=== PATIENT | male | born 1965 | race African-American/Black ===

== ENCOUNTER 2016-10-20 05:28 | Inpatient (IN) | payer MEDICARE, MEDICAID, OTHER ==
[~2016-10-20] VITALS: Ht 172.7 cm; Wt 91.8 kg
[2016-10-20] VITALS (10 sets, daily range): BP systolic 136–200; BP diastolic 65–95; PULSE 75–90; RESP 17–20; TEMP 97.6–101.3; O2SAT 95–100
[~2016-10-20 05:28] MED LIST: BACL20TA PO; FENT100D T-DERMAL; GABA600T PO; LYRI200C PO
[2016-10-20] MEDS ORDERED: SODIUM CHLOR 0.9% 1000 ML INJ 1,000 ML IV ONE (05:31)
[2016-10-20] MEDS ORDERED: ACETAMINOPHEN 650 MG SUPP RECTAL ONE (05:45)
[2016-10-20 06:00] LABS: AUTOMATED NEUTROPHIL # 17.5 TH/MM3 (1.8-7.7); BASOPHIL # 0.1 TH/MM3 (0-0.2); BASOPHIL % 0.4 % (0.0-2.0); HEMATOCRIT 43.6 % (39.0-51.0); LYMPH % 5.2 % (9.0-44.0); MEAN CELL VOLUME 86.5 FL (80.0-100.0); MEAN CORPUSCULAR HEMOGLOBIN 28.7 PG (27.0-34.0); MEAN CORPUSCULAR HGB CONC 33.2 % (32.0-36.0); MONO % 0.3 % (0.0-8.0); NEUT % 94.1 % (16.0-70.0); PLATELET COUNT 146 TH/MM3 (150-450); RED BLOOD COUNT 5.04 MIL/MM3 (4.50-5.90); WHITE BLOOD COUNT 18.7 TH/MM3 (4.0-11.0)
[2016-10-20] MEDS ORDERED: HYDROmorphone HCL PF 1 MG/ML VIAL IV PUSH ONE ×2 (06:00→09:00)
[2016-10-20 06:04] LABS: HEMO FLAGS DIFF FINAL
[2016-10-20 06:08] LABS: CHLORIDE 111 MEQ/L (98-107); POTASSIUM 4.2 MEQ/L (3.5-5.1); SODIUM (NA) 143 MEQ/L (136-145)
--- NOTE | 2016-10-20 06:11 | PD ---
HPI Chief Complaint: Altered Mental Status Time Seen by Provider: 05:31 Travel History International Travel<30 days: No Contact w/Intl Traveler<30days: No Traveled to known affect area: No History of Present Illness HPI Patient is a 50-year-old male who comes in by EMS due to altered mental status. 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 His mother says that since around midnight he has been yelling and not talking to her. She thought he was having night terrors. He is unable to provide any history. He is simply yelling out and occasionally saying okay. At one point he did say that his heart and his kidneys hurt him. He does not provide any other information. Mom states he was in his normal state of health earlier. She says he does not eat or drink very much normally. PFSH Past Medical History Anxiety: No Depression: No Cancer: No Cardiovascular Problems: No Endocrine: No Genitourinary: No Immune Disorder: No Musculoskeletal: No Neurologic: Yes (c4 c5 fracture, incomplete quad) Psychiatric: No Reproductive: No Respiratory: No Immunizations Current: No Past Surgical History Abdominal Surgery: Yes (COLOSTOMY TO LLQ ) AICD: No Pacemaker: No Other Surgery: Yes Social History Alcohol Use: No Tobacco Use: Yes Substance Use: No Allergies-Medications (Allergen,Severity, Reaction): Coded Allergies: Morphine (Verified Allergy, Unknown, Confusion, 10/20/16) PT DENIES ALLERGY TO THIS MEDICATION 02-04-16 Uncoded Allergies: morphi (Adverse Reaction, Unknown, Confusion, 06/21/14) Reported Meds & Prescriptions Reported Meds & Active Scripts Active Lyrica (Pregabalin) 200 Mg Cap 200 Mg PO TID Reported Baclofen 20 Mg Tab 20 Mg PO QID Fentanyl Patch 72 HR (Fentanyl) 100 Mcg/Hr Patch 100 Mcg T-DERMAL Q72H Remove old patch when new one placed. Gabapentin 600 Mg Tab 1,200 Mg PO TID Review of Systems ROS Limitations: Clinical Condition, Altered Mental Status Physical Exam Exam Limitations: Altered Mental Status Narrative GENERAL: Awake, confused. SKIN: Warm and dry. HEAD: Atraumatic. Normocephalic. EYES: Pupils equal and round. No scleral icterus. Extraocular movements intact. ENT: Mucous membranes are dry. NECK: Trachea midline. No JVD. CARDIOVASCULAR: Regular rate and rhythm. No murmur appreciated. RESPIRATORY: No accessory muscle use. Clear to auscultation. Breath sounds equal bilaterally. GASTROINTESTINAL: Abdomen soft, non-tender, nondistended. MUSCULOSKELETAL: No obvious deformities. No clubbing. No cyanosis. Large bilateral pitting edema of the lower extremities. NEUROLOGICAL: Patient is awake, but does not answer questions. He is moving both arms, he has paralysis of both legs. The rest of his neurologic exam cannot be assessed due to his altered mental status. Data Data Last Documented VS Vital Signs Date Time Temp Pulse Resp B/P Pulse Ox O2 Delivery O2 Flow Rate FiO2 10/20/16 07:09 84 20 169/78 100 Room Air 10/20/16 05:50 101.3 Orders Electrocardiogram (10/20/16 05:31) Complete Blood Count With Diff (10/20/16 05:31) Comprehensive Metabolic Panel (10/20/16 05:31) Prothrombin Time / Inr (Pt) (10/20/16 05:31) Act Partial Throm Time (Ptt) (10/20/16 05:31) Lactic Acid Sepsis Protocol (10/20/16 05:31) Magnesium (Mg) (10/20/16 05:31) Phosphorus (Po4) (10/20/16 05:31) Lipase (10/20/16 05:31) Ckmb (Isoenzyme) Profile (10/20/16 05:31) Troponin I (10/20/16 05:31) Urinalysis - C+S If Indicated (10/20/16 05:31) Ua Includes Microscopic (10/20/16 05:31) Blood Culture (10/20/16 05:31) Chest, Single Ap (10/20/16 05:31) Blood Glucose (10/20/16 05:31) Ecg Monitoring (10/20/16 05:31) Iv Access Insert/Monitor (10/20/16 05:31) Oximetry (10/20/16 05:31) Oxygen Administration (10/20/16 05:31) Urinary Catheter Insert/Apply (10/20/16 05:31) Acetaminophen Supp (Tylenol Supp) (10/20/16 05:45) Ct Brain W/O Iv Contrast(Rout) (10/20/16 05:31) Sodium Chlor 0.9% 1000 Ml Inj (Ns 1000 M (10/20/16 05:31) Ammonia (10/20/16 05:36) Drug Screen,Ur W/Confirmation (10/20/16 05:36) Hydromorphone Pf Inj (Dilaudid Pf Inj) (10/20/16 06:00) Lorazepam Inj (Ativan Inj) (10/20/16 06:15) Piperacil-Tazo 3.375 Gm Premix (Zosyn 3. (10/20/16 06:15) Vancomycin Inj (Vancomycin Inj) (10/20/16 06:15) CKMB (10/20/16 05:47) CKMB% (10/20/16 05:47) Electrocardiogram (10/20/16 ) Urine Culture (10/20/16 05:50) Admit Order (Ed Use Only) (10/20/16 07:28) Labs Laboratory Tests Test 10/20/16 10/20/16 05:47 05:50 White Blood Count 18.7 TH/MM3 Red Blood Count 5.04 MIL/MM3 Hemoglobin 14.5 GM/DL Hematocrit 43.6 % Mean Corpuscular Volume 86.5 FL Mean Corpuscular Hemoglobin 28.7 PG Mean Corpuscular Hemoglobin 33.2 % Concent Red Cell Distribution Width 14.0 % Platelet Count 146 TH/MM3 Mean Platelet Volume 9.9 FL Neutrophils (%) (Auto) 94.1 % Lymphocytes (%) (Auto) 5.2 % Monocytes (%) (Auto) 0.3 % Eosinophils (%) (Auto) 0.0 % Basophils (%) (Auto) 0.4 % Neutrophils # (Auto) 17.5 TH/MM3 Lymphocytes # (Auto) 1.0 TH/MM3 Monocytes # (Auto) 0.1 TH/MM3 Eosinophils # (Auto) 0.0 TH/MM3 Basophils # (Auto) 0.1 TH/MM3 CBC Comment DIFF FINAL Differential Comment Prothrombin Time 12.3 SEC Prothromb Time International 1.1 RATIO Ratio Activated Partial 29.9 SEC Thromboplast Time Sodium Level 143 MEQ/L Potassium Level 4.2 MEQ/L Chloride Level 111 MEQ/L Carbon Dioxide Level 20.4 MEQ/L Anion Gap 12 MEQ/L Blood Urea Nitrogen 18 MG/DL Creatinine 1.50 MG/DL Estimat Glomerular Filtration 61 ML/MIN Rate Random Glucose 126 MG/DL Lactic Acid Level 2.0 mmol/L Calcium Level 8.5 MG/DL Phosphorus Level 2.3 MG/DL Magnesium Level 2.3 MG/DL Total Bilirubin 0.7 MG/DL Aspartate Amino Transf 20 U/L (AST/SGOT) Alanine Aminotransferase 13 U/L (ALT/SGPT) Alkaline Phosphatase 78 U/L Ammonia LESS THAN 10 MCMOL/L Total Creatine Kinase 310 U/L Creatine Kinase MB 4.7 NG/ML Creatine Kinase MB % 1.5 % Troponin I 0.02 NG/ML Total Protein 7.9 GM/DL Albumin 3.4 GM/DL Lipase 40 U/L Urine Collection Type CATH Urine Color YELLOW Urine Turbidity MOD Urine pH 6.0 Urine Specific [place] 1.020 Urine Protein 100 mg/dL Urine Glucose (UA) NEG mg/dL Urine Ketones NEG mg/dL Urine Occult Blood MOD Urine Nitrite POS Urine Bilirubin NEG Urine Leukocyte Esterase MOD Urine RBC 4-9 /hpf Urine WBC 25-49 /hpf Urine Squamous Epithelial 0-5 /hpf Cells Urine Bacteria MANY /hpf Microscopic Urinalysis Comment CATH-CULTURE IND Urine Opiates Screen NEG Urine Barbiturates Screen NEG Urine Amphetamines Screen NEG Urine Benzodiazepines Screen NEG Urine Cocaine Screen NEG Urine Cannabinoids Screen NEG MDM Medical Decision Making Medical Screen Exam Complete: Yes Emergency Medical Condition: Yes Medical Record Reviewed: Yes Interpretation(s) ECG shows sinus rhythm at 71, no ST elevation or depression, normal intervals. T-wave inversions present in lead 3 and aVF. Differential Diagnosis Sepsis versus drug reaction versus ICH versus electrolyte abnormality versus encephalopathy Narrative Course Patient is a 50-year-old male comes in altered. Patient is unable to provide history and is just yelling. Patient is warm to the touch. IV established, patient connected to registered nurse cardiac. Labs sent show a white count of 18.7. Urinalysis positive for UTI. Chest x-ray shows possible pneumonia. Lactic acid is 2. Patient covered with vancomycin and Zosyn. Given IV fluids. Patient given small dose of Dilaudid as well as Ativan. CT of the head ordered. Patient signed out to Dr. Paige to follow up CT and admit the patient. Critical Care Narrative Aggregate critical care time was 35 minutes. Time to perform other separately billable procedures was not included in the critical care time. My time did not include minutes spent treating any other patients simultaneously or on activities that did not directly contribute to the patient's treatment. The services I provided to this patient were to treat and/or prevent clinically significant deterioration that could result in: Serious morbidity, worsening illness or . I provided critical care services requiring my management, as noted below: Chart data review, documentation time, medication orders and management, vital sign assessments/reviewing monitor data, ordering and reviewing lab tests, ordering and interpreting/reviewing x-rays and diagnostic studies, care of the patient and discussion of the patient with the admitting physicians. Anna Pollard MD Oct 20, 2016 06:11
[2016-10-20 06:12] LABS: ANION GAP 12 MEQ/L (5-15); BICARBONATE 20.4 MEQ/L (21.0-32.0); BLOOD UREA NITROGEN 18 MG/DL (7-18); MAGNESIUM 2.3 MG/DL (1.5-2.5)
[2016-10-20 06:15] LABS: ALT (GPT) 13 U/L (12-78); AST (GOT) 20 U/L (15-37); GLOMERULAR FILTRATION RATE 61 ML/MIN (>89)
[2016-10-20] MEDS ORDERED: LORazepam 2 MG/ML VIAL IV PUSH ONE (06:15)
[2016-10-20] MEDS ORDERED: PIPERACIL-TAZO 3.375 GM PREMIX 50 ML IV ONE (06:15)
[2016-10-20] MEDS ORDERED: VANCOMYCIN INJ 1,000 MG in SODIUM CHLOR 0.9% 250 ML INJ 250 ML IV ONE (06:15)
[2016-10-20 06:16] LABS: TOTAL BILIRUBIN ADULT 0.7 MG/DL (0.2-1.0)
--- NOTE | 2016-10-20 06:17 | RADHPO ---
EXAM DATE/TIME: 10/20/2016 06:01 [facility] COMPARISON: CHEST SINGLE AP, February 04, 2016, 23:59. INDICATIONS : Chest pain. MEDICAL HISTORY : None. SURGICAL HISTORY : None. ENCOUNTER: Initial ACUITY: 1 day PAIN SCORE: 8/10 LOCATION: Bilateral chest FINDINGS: A single AP semierect view of the chest was obtained and demonstrates mild streaky opacity is now not ed in the perihilar regions in both lung bases. There is no focal consolidation or effusion. The hear t size is at the upper limits of normal. Overlying electrocardiogram leads are present. The bony thor ax is intact. The patient is status post lower cervical fusion. CONCLUSION: Mild streaky opacity is now noted in both perihilar regions with no focal consolidati on. The findings could indicate viral pneumonitis or early pneumonia. Reggie Alexandra MD on October 20, 2016 at 6:14 Board Certified Radiologist. This report was verified electronically.
[2016-10-20 06:18] LABS: GLUCOSE,URINE NEG (NEG); KETONE, URINE NEG (NEG)
[2016-10-20 06:18] LABS: ALKALINE PHOSPHATASE 78 U/L (45-117); CREATINE KINASE 310 U/L (39-308)
[2016-10-20 06:22] LABS: APTT (PATIENT) 29.9 SEC (24.3-30.1); INTERNATIONAL NORMALIZED RATIO 1.1 RATIO; PROTHROMBIN TIME - PATIENT 12.3 SEC (9.8-11.6)
[2016-10-20 06:26] LABS: BLOOD, URINE MOD (NEG); NITRITE,URINE POS (NEG)
[2016-10-20 06:27] LABS: BACTERIA, URINE MANY /hpf; METHOD OF COLLECTION CATH; URINE COLOR YELLOW (YELLW/STRAW)
[2016-10-20 06:28] LABS: COMMENT (UR) CATH-CULTURE IND; CULTURE IF INDICATED CATH CULTURE IND; SQUAMOUS EPITHELIAL CELL URINE 0-5 /hpf (0-5)
[2016-10-20 06:30] LABS: CKMB 4.7 NG/ML (0.5-3.6)
[2016-10-20 06:40] LABS: AMPHETAMINE, URINE NEG (NEG)
[2016-10-20 06:41] LABS: COCAINE, URINE NEG (NEG)
--- NOTE | 2016-10-20 07:12 | PD ---
Physical Exam Date Seen by Provider: Oct 20, 2016 Data Data Last Documented VS Vital Signs Date Time Temp Pulse Resp B/P Pulse Ox O2 Delivery O2 Flow Rate FiO2 10/20/16 07:09 84 20 169/78 100 Room Air 10/20/16 05:50 101.3 Orders Electrocardiogram (10/20/16 05:31) Complete Blood Count With Diff (10/20/16 05:31) Comprehensive Metabolic Panel (10/20/16 05:31) Prothrombin Time / Inr (Pt) (10/20/16 05:31) Act Partial Throm Time (Ptt) (10/20/16 05:31) Lactic Acid Sepsis Protocol (10/20/16 05:31) Magnesium (Mg) (10/20/16 05:31) Phosphorus (Po4) (10/20/16 05:31) Lipase (10/20/16 05:31) Ckmb (Isoenzyme) Profile (10/20/16 05:31) Troponin I (10/20/16 05:31) Urinalysis - C+S If Indicated (10/20/16 05:31) Ua Includes Microscopic (10/20/16 05:31) Blood Culture (10/20/16 05:31) Chest, Single Ap (10/20/16 05:31) Blood Glucose (10/20/16 05:31) Ecg Monitoring (10/20/16 05:31) Iv Access Insert/Monitor (10/20/16 05:31) Oximetry (10/20/16 05:31) Oxygen Administration (10/20/16 05:31) Urinary Catheter Insert/Apply (10/20/16 05:31) Acetaminophen Supp (Tylenol Supp) (10/20/16 05:45) Ct Brain W/O Iv Contrast(Rout) (10/20/16 05:31) Sodium Chlor 0.9% 1000 Ml Inj (Ns 1000 M (10/20/16 05:31) Ammonia (10/20/16 05:36) Drug Screen,Ur W/Confirmation (10/20/16 05:36) Hydromorphone Pf Inj (Dilaudid Pf Inj) (10/20/16 06:00) Lorazepam Inj (Ativan Inj) (10/20/16 06:15) Piperacil-Tazo 3.375 Gm Premix (Zosyn 3. (10/20/16 06:15) Vancomycin Inj (Vancomycin Inj) (10/20/16 06:15) CKMB (10/20/16 05:47) CKMB% (10/20/16 05:47) Electrocardiogram (10/20/16 ) Urine Culture (10/20/16 05:50) Admit Order (Ed Use Only) (10/20/16 07:28) Labs Laboratory Tests Test 10/20/16 10/20/16 05:47 05:50 White Blood Count 18.7 TH/MM3 Red Blood Count 5.04 MIL/MM3 Hemoglobin 14.5 GM/DL Hematocrit 43.6 % Mean Corpuscular Volume 86.5 FL Mean Corpuscular Hemoglobin 28.7 PG Mean Corpuscular Hemoglobin 33.2 % Concent Red Cell Distribution Width 14.0 % Platelet Count 146 TH/MM3 Mean Platelet Volume 9.9 FL Neutrophils (%) (Auto) 94.1 % Lymphocytes (%) (Auto) 5.2 % Monocytes (%) (Auto) 0.3 % Eosinophils (%) (Auto) 0.0 % Basophils (%) (Auto) 0.4 % Neutrophils # (Auto) 17.5 TH/MM3 Lymphocytes # (Auto) 1.0 TH/MM3 Monocytes # (Auto) 0.1 TH/MM3 Eosinophils # (Auto) 0.0 TH/MM3 Basophils # (Auto) 0.1 TH/MM3 CBC Comment DIFF FINAL Differential Comment Prothrombin Time 12.3 SEC Prothromb Time International 1.1 RATIO Ratio Activated Partial 29.9 SEC Thromboplast Time Sodium Level 143 MEQ/L Potassium Level 4.2 MEQ/L Chloride Level 111 MEQ/L Carbon Dioxide Level 20.4 MEQ/L Anion Gap 12 MEQ/L Blood Urea Nitrogen 18 MG/DL Creatinine 1.50 MG/DL Estimat Glomerular Filtration 61 ML/MIN Rate Random Glucose 126 MG/DL Lactic Acid Level 2.0 mmol/L Calcium Level 8.5 MG/DL Phosphorus Level 2.3 MG/DL Magnesium Level 2.3 MG/DL Total Bilirubin 0.7 MG/DL Aspartate Amino Transf 20 U/L (AST/SGOT) Alanine Aminotransferase 13 U/L (ALT/SGPT) Alkaline Phosphatase 78 U/L Ammonia LESS THAN 10 MCMOL/L Total Creatine Kinase 310 U/L Creatine Kinase MB 4.7 NG/ML Creatine Kinase MB % 1.5 % Troponin I 0.02 NG/ML Total Protein 7.9 GM/DL Albumin 3.4 GM/DL Lipase 40 U/L Urine Collection Type CATH Urine Color YELLOW Urine Turbidity MOD Urine pH 6.0 Urine Specific [place] 1.020 Urine Protein 100 mg/dL Urine Glucose (UA) NEG mg/dL Urine Ketones NEG mg/dL Urine Occult Blood MOD Urine Nitrite POS Urine Bilirubin NEG Urine Leukocyte Esterase MOD Urine RBC 4-9 /hpf Urine WBC 25-49 /hpf Urine Squamous Epithelial 0-5 /hpf Cells Urine Bacteria MANY /hpf Microscopic Urinalysis Comment CATH-CULTURE IND Urine Opiates Screen NEG Urine Barbiturates Screen NEG Urine Amphetamines Screen NEG Urine Benzodiazepines Screen NEG Urine Cocaine Screen NEG Urine Cannabinoids Screen NEG MDM Supervised Visit with DON: No Interpretation(s) Laboratory Tests Test 10/20/16 10/20/16 05:47 05:50 White Blood Count 18.7 TH/MM3 (4.0-11.0) Red Blood Count 5.04 MIL/MM3 (4.50-5.90) Hemoglobin 14.5 GM/DL (13.0-17.0) Hematocrit 43.6 % (39.0-51.0) Mean Corpuscular Volume 86.5 FL (80.0-100.0) Mean Corpuscular Hemoglobin 28.7 PG (27.0-34.0) Mean Corpuscular Hemoglobin 33.2 % Concent (32.0-36.0) Red Cell Distribution Width 14.0 % (11.6-17.2) Platelet Count 146 TH/MM3 (150-450) Mean Platelet Volume 9.9 FL (7.0-11.0) Neutrophils (%) (Auto) 94.1 % (16.0-70.0) Lymphocytes (%) (Auto) 5.2 % (9.0-44.0) Monocytes (%) (Auto) 0.3 % (0.0-8.0) Eosinophils (%) (Auto) 0.0 % (0.0-4.0) Basophils (%) (Auto) 0.4 % (0.0-2.0) Neutrophils # (Auto) 17.5 TH/MM3 (1.8-7.7) Lymphocytes # (Auto) 1.0 TH/MM3 (1.0-4.8) Monocytes # (Auto) 0.1 TH/MM3 (0-0.9) Eosinophils # (Auto) 0.0 TH/MM3 (0-0.4) Basophils # (Auto) 0.1 TH/MM3 (0-0.2) CBC Comment DIFF FINAL Differential Comment Prothrombin Time 12.3 SEC (9.8-11.6) Prothromb Time International 1.1 RATIO Ratio Activated Partial 29.9 SEC Thromboplast Time (24.3-30.1) Sodium Level 143 MEQ/L (136-145) Potassium Level 4.2 MEQ/L (3.5-5.1) Chloride Level 111 MEQ/L (98-107) Carbon Dioxide Level 20.4 MEQ/L (21.0-32.0) Anion Gap 12 MEQ/L (5-15) Blood Urea Nitrogen 18 MG/DL (7-18) Creatinine 1.50 MG/DL (0.60-1.30) Estimat Glomerular Filtration 61 ML/MIN (>89) Rate Random Glucose 126 MG/DL (74-106) Lactic Acid Level 2.0 mmol/L (0.4-2.0) Calcium Level 8.5 MG/DL (8.5-10.1) Phosphorus Level 2.3 MG/DL (2.5-4.9) Magnesium Level 2.3 MG/DL (1.5-2.5) Total Bilirubin 0.7 MG/DL (0.2-1.0) Aspartate Amino Transf 20 U/L (15-37) (AST/SGOT) Alanine Aminotransferase 13 U/L (12-78) (ALT/SGPT) Alkaline Phosphatase 78 U/L (45-117) Ammonia LESS THAN 10 MCMOL/L (11-32) Total Creatine Kinase 310 U/L (39-308) Creatine Kinase MB 4.7 NG/ML (0.5-3.6) Creatine Kinase MB % 1.5 % (0.0-4.0) Troponin I 0.02 NG/ML (0.02-0.05) Total Protein 7.9 GM/DL (6.4-8.2) Albumin 3.4 GM/DL (3.4-5.0) Lipase 40 U/L (73-393) Urine Collection Type CATH Urine Color YELLOW (YELLW/STRAW) Urine Turbidity MOD (CLEAR) Urine pH 6.0 (5.0-8.5) Urine Specific [place] 1.020 (1.002-1.035) Urine Protein 100 mg/dL (NEG-TRACE) Urine Glucose (UA) NEG mg/dL (NEG) Urine Ketones NEG mg/dL (NEG) Urine Occult Blood MOD (NEG) Urine Nitrite POS (NEG) Urine Bilirubin NEG (NEG) Urine Leukocyte Esterase MOD (NEG) Urine RBC 4-9 /hpf (0-3) Urine WBC 25-49 /hpf (0-5) Urine Squamous Epithelial 0-5 /hpf (0-5) Cells Urine Bacteria MANY /hpf (NONE) Microscopic Urinalysis Comment CATH-CULTURE IND Urine Opiates Screen NEG (NEG) Urine Amphetamines Screen NEG (NEG) Urine Benzodiazepines Screen NEG (NEG) Urine Cocaine Screen NEG (NEG) Urine Cannabinoids Screen NEG (NEG) Vital Signs Date Time Temp Pulse Resp B/P Pulse Ox O2 Delivery O2 Flow Rate FiO2 10/20/16 06:31 80 18 144/80 98 Room Air 10/20/16 05:50 90 18 98 Room Air 10/20/16 05:50 18 98 Room Air 10/20/16 05:50 98 Room Air 10/20/16 05:50 101.3 90 18 200/91 98 Last Impressions Chest X-Ray 10/20/16 0531 Signed Impressions: Service Date/Time: Thursday, October 20, 2016 06:01 - CONCLUSION: Mild streaky opacity is now noted in both perihilar regions with no focal consolidation. The findings could indicate viral pneumonitis or early pneumonia. Reggie Alexandra MD Narrative Course Patient signed out to me by Dr Pollard Please see previous chart. Pt with AMS, apparently was yelling and screaming last night with c/o of kidney pain and chest pain. Patient's mother who is at bedside, reports that patient has not been acting like his normal self for the past 2 days. Reports overall decreased by mouth intake. Reports that patient has woken up 2 nights in a row with what appeared to be night terrors. Reports that he wouldn't stop screaming last night and patient appeared altered. Patient at baseline is alert and oriented x 3. Pt with sepsis criteria most likely from pneumonia and UTI. Please note that patient does self cath. Pt has already been given zosyn and vanco for treatment of sepsis. Patient currently sedated, CT pending. After CT has resulted, will admit for sepsis and altered mental status. Patient's mother at bedside, reviewed all labs and all studies as well as all findings with the patient's mother in detail. Patient with no complaints at this time. Understands need for admission and is agreeable Case reviewed with Dr Villavicencio who accepts pt to service Sepsis Criteria SIRS Criteria (2 or more): Temp > 100.9 or < 96.8, WBC > 29863, < 4000 or > 10 % bands Severe Sepsis (+one): Acute Oliguria/Renal Failure Criteria Outcome: Meets sepsis criteria Physician Communication Physician Communication reviewed case with dr pena Diagnosis Primary Impression: Sepsis Qualified Code: A41.9 - Sepsis, due to unspecified organism Additional Impressions: Dehydration UTI (urinary tract infection) Qualified Code: N30.00 - Acute cystitis without hematuria Pneumonia Qualified Code: J18.9 - Pneumonia due to infectious organism, unspecified laterality, unspecified part of lung Admitting Information Admitting Physician Requests: Admit Yadi Paige DO Oct 20, 2016 07:12
--- NOTE | 2016-10-20 07:15 | RADHPO ---
EXAM DATE/TIME: 10/20/2016 06:49 [facility] COMPARISON: CT BRAIN W/O CONTRAST, February 05, 2016, 1:15. INDICATIONS : Altered mental status. RADIATION DOSE: 60.60 CTDIvol (mGy) MEDICAL HISTORY : None SURGICAL HISTORY : Fusion, cervical. Vena cava filter. ENCOUNTER: Initial ACUITY: 1 day PAIN SCALE: 0/10 LOCATION: cranial TECHNIQUE: Multiple contiguous axial images were obtained of the head. Using automated exposure control and adj ustment of the mA and/or kV according to patient size, radiation dose was kept as low as reasonably a chievable to obtain optimal diagnostic quality images. FINDINGS: CEREBRUM: The ventricles are normal for age. No evidence of midline shift, mass lesion, hemorrhage or acute in farction. No extra-axial fluid collections are seen. POSTERIOR FOSSA: The cerebellum and brainstem are intact. The 4th ventricle is midline. The cerebellopontine angle i s unremarkable. EXTRACRANIAL: The visualized portion of the orbits is intact. SKULL: The calvaria is intact. No evidence of skull fracture. CONCLUSION: Negative noncontrast head CT. Triston Olsen MD on October 20, 2016 at 7:13 Board Certified Radiologist. This report was verified electronically.
[2016-10-20 07:20] LABS: BARBITURATES, URINE NEG (NEG)
[2016-10-20] MEDS ORDERED: MAGNESIUM HYDROXIDE SUSP 30 ML CUP PO PRN (07:30)
[2016-10-20] MEDS ORDERED: ONDANSETRON HCL 4 MG/2 ML VIAL IVP PRN (07:30)
[2016-10-20] MEDS ORDERED: NALOXONE HCL 0.4 MG/ML AMP IV PRN (07:30)
[2016-10-20] MEDS: LEVOFLOXACIN 750 MG PREMIX INJ 150 ML IV SCH (08:02)
[2016-10-20] MEDS: SODIUM CHLOR 0.9% 1000 ML INJ 1,000 ML IV SCH ×2 (08:02→19:41)
--- NOTE | 2016-10-20 09:49 | HHI.HP ---
cc: Jordan Quintero MD [facility] Service [facility] Primary Care Physician Jordan Moon Admission Diagnosis Sepsis Diagnoses: (1) Sepsis Diagnosis: Principal (2) Pneumonia (3) UTI (urinary tract infection) (4) Spinal cord injury, C5-C7 (5) Tetraparesis (6) Colostomy in place (7) Encephalopathy Chief Complaint: Altered mental status Travel History International Travel<30 Days: No Contact w/Intl Traveler <30 Da: No Traveled to Known Affected Are: No Sepsis Criteria SIRS Criteria (2 or more): Temp > 100.9 or < 96.8, WBC > 91252, < 4000 or > 10 % bands Sepsis Criteria (SIRS+source): Infect source susp/known Criteria Outcome: Meets sepsis criteria Review of Systems ROS Limitations: Clinical Condition, Altered Mental Status Constitutional: DENIES: Fever, Chills, Night Sweats Eyes: DENIES: Blurred vision, Vision loss Ears, nose, mouth, throat: DENIES: Hearing loss Respiratory: DENIES: Cough, Wheezing, Sputum production, Shortness of breath Cardiovascular: COMPLAINS OF: Chest pain, DENIES: Palpitations, Dyspnea on Exertion, Lower Extremity Edema Gastrointestinal: DENIES: Abdominal pain, Constipation, Diarrhea, Nausea, Vomiting Genitourinary: DENIES: Urinary frequency, Urinary incontinence, Urgency, Hematuria, Dysuria, Nocturia Musculoskeletal: DENIES: Joint pain, Muscle aches Integumentary: DENIES: Pruritus, Rash Hematologic/lymphatic: DENIES: Bruising Neurologic: DENIES: Headache Past Family Social History Past Medical History Spinal cord injury Tetraparesis Neurogenic bladder Past Surgical History Colostomy Allergies: Coded Allergies: Morphine (Verified Allergy, Unknown, Confusion, 10/20/16) PT DENIES ALLERGY TO THIS MEDICATION 02-04-16 Uncoded Allergies: morphi (Adverse Reaction, Unknown, Confusion, 06/21/14) Family History Diabetes Arthritis Social History Smokes one pack per day. No alcohol or illicit drug use reported. Physical Exam Vital Signs Vital Signs Date Time Temp Pulse Resp B/P Pulse Ox O2 Delivery O2 Flow Rate FiO2 10/20/16 09:08 99.0 80 17 143/65 95 10/20/16 08:37 20 10/20/16 08:28 84 20 158/83 98 Room Air 10/20/16 07:09 84 20 169/78 100 Room Air 10/20/16 07:05 65 20 100 Room Air 10/20/16 06:31 80 18 144/80 98 Room Air 10/20/16 05:50 90 18 98 Room Air 10/20/16 05:50 18 98 Room Air 10/20/16 05:50 98 Room Air 10/20/16 05:50 101.3 90 18 200/91 98 Physical Exam GENERAL: Well-nourished, well-developed male in no acute distress. HEENT: Normocephalic, atraumatic. Pupils equal, round and reactive. Extraocular movements intact. No scleral icterus. No injection or drainage. Mucous membranes are dry. CARDIOVASCULAR: Regular rate and rhythm without murmurs, gallops, or rubs. RESPIRATORY: Clear to auscultation. No wheezes, rales, or rhonchi. Breathing is non-labored. GASTROINTESTINAL: Abdomen soft, non-tender, nondistended. EXTREMITIES: 2+ bilateral lower extremity edema. No calf tenderness. PSYCH: Alert, confused. Laboratory Laboratory Tests Test 10/20/16 10/20/16 05:47 05:50 White Blood Count 18.7 Red Blood Count 5.04 Hemoglobin 14.5 Hematocrit 43.6 Mean Corpuscular Volume 86.5 Mean Corpuscular Hemoglobin 28.7 Mean Corpuscular Hemoglobin 33.2 Concent Red Cell Distribution Width 14.0 Platelet Count 146 Mean Platelet Volume 9.9 Neutrophils (%) (Auto) 94.1 Lymphocytes (%) (Auto) 5.2 Monocytes (%) (Auto) 0.3 Eosinophils (%) (Auto) 0.0 Basophils (%) (Auto) 0.4 Neutrophils # (Auto) 17.5 Lymphocytes # (Auto) 1.0 Monocytes # (Auto) 0.1 Eosinophils # (Auto) 0.0 Basophils # (Auto) 0.1 CBC Comment DIFF FINAL Differential Comment Prothrombin Time 12.3 Prothromb Time International 1.1 Ratio Activated Partial 29.9 Thromboplast Time Sodium Level 143 Potassium Level 4.2 Chloride Level 111 Carbon Dioxide Level 20.4 Anion Gap 12 Blood Urea Nitrogen 18 Creatinine 1.50 Estimat Glomerular Filtration 61 Rate Random Glucose 126 Lactic Acid Level 2.0 Calcium Level 8.5 Phosphorus Level 2.3 Magnesium Level 2.3 Total Bilirubin 0.7 Aspartate Amino Transf 20 (AST/SGOT) Alanine Aminotransferase 13 (ALT/SGPT) Alkaline Phosphatase 78 Ammonia LESS THAN 10 Total Creatine Kinase 310 Creatine Kinase MB 4.7 Creatine Kinase MB % 1.5 Troponin I 0.02 Total Protein 7.9 Albumin 3.4 Lipase 40 Urine Collection Type CATH Urine Color YELLOW Urine Turbidity MOD Urine pH 6.0 Urine Specific [place] 1.020 Urine Protein 100 Urine Glucose (UA) NEG Urine Ketones NEG Urine Occult Blood MOD Urine Nitrite POS Urine Bilirubin NEG Urine Leukocyte Esterase MOD Urine RBC 4-9 Urine WBC 25-49 Urine Squamous Epithelial 0-5 Cells Urine Bacteria MANY Microscopic Urinalysis Comment CATH-CULTURE IND Urine Opiates Screen NEG Urine Barbiturates Screen NEG Urine Amphetamines Screen NEG Urine Benzodiazepines Screen NEG Urine Cocaine Screen NEG Urine Cannabinoids Screen NEG Date/Time Procedure Status Source Growth 10/20/16 07:42 Influenza Types A,B Antigen (IRMA) - Final Complete Nasal Washing NEGATIVE FOR FLU A AND B ANTIGEN.... 10/20/16 05:50 Urine Culture Received Urine Catheterized Urine Pending 10/20/16 05:47 Aerobic Blood Culture Received Blood Peripheral Pending 10/20/16 05:47 Anaerobic Blood Culture Received Blood Peripheral Pending Result Diagram: 10/20/16 0547 10/20/1647 Imaging Last Impressions Head CT 10/20/16530 Signed Impressions: Service Date/Time: Thursday, October 20, 2016 06:49 - CONCLUSION: Negative noncontrast head CT. Triston Olsen MD Chest X-Ray 10/20/16530 Signed Impressions: Service Date/Time: Thursday, October 20, 2016 06:01 - CONCLUSION: Mild streaky opacity is now noted in both perihilar regions with no focal consolidation. The findings could indicate viral pneumonitis or early pneumonia. Reggie Alexandra MD Assessment and Plan Assessment and Plan 1. Sepsis secondary to UTI, possible pneumonia: Blood cultures pending. Influenza testing negative. Urine culture pending. Continue antibiotics, IV fluids. 2. Tetraparesis: Chronic, secondary to spinal cord injury in 2013. PT eval. 3. Encephalopathy: Likely secondary to infection. Monitor mental status. 4. Lower extremity edema: Will need to be cautious with IV fluids and use diuretics. 5. Acute kidney injury: Creatinine is elevated above patient's baseline. Monitor labs. IV fluids. 6. DVT prophylaxis: Heparin. Problem Qualifiers (1) Sepsis: Qualified Code: A41.9 - Sepsis, due to unspecified organism (2) Pneumonia: Qualified Code: J18.9 - Pneumonia due to infectious organism, unspecified laterality, unspecified part of lung (3) UTI (urinary tract infection): Qualified Code: N30.00 - Acute cystitis without hematuria Richard Villavicencio MD Oct 20, 2016 09:49
[2016-10-20] MEDS: BUMETANIDE INJ 1 MG/4 ML VIAL IV PUSH SCH (13:57)
[2016-10-20 18:26] LABS: CREATINE KINASE 298 U/L (39-308)
[2016-10-20] MEDS: HEPARIN SODIUM - SQ 10,000 UNITS/ML VIAL SQ SCH (19:41)
[2016-10-21] VITALS (8 sets, daily range): BP systolic 120–181; BP diastolic 74–100; PULSE 88–106; RESP 18–20; TEMP 98.1–100.9; O2SAT 91–100
[2016-10-21] MEDS: HYDROmorphone HCL PF 1 MG/ML VIAL IV PUSH PRN ×2 (01:28→08:15)
[2016-10-21 06:26] LABS: AUTOMATED NEUTROPHIL # 11.9 TH/MM3 (1.8-7.7); BASOPHIL % 0.1 % (0.0-2.0); EOSINOPHIL % 0.1 % (0.0-4.0); HEMATOCRIT 38.4 % (39.0-51.0); LYMPH % 8.8 % (9.0-44.0); LYMPHOCYTE # 1.2 TH/MM3 (1.0-4.8); MEAN CORPUSCULAR HEMOGLOBIN 29.2 PG (27.0-34.0); MEAN CORPUSCULAR HGB CONC 33.9 % (32.0-36.0); MONO % 2.6 % (0.0-8.0); NEUT % 88.4 % (16.0-70.0); PLATELET COUNT 132 TH/MM3 (150-450); RED BLOOD COUNT 4.47 MIL/MM3 (4.50-5.90); RED CELL DISTRIBUTION WIDTH 14.1 % (11.6-17.2); WHITE BLOOD COUNT 13.4 TH/MM3 (4.0-11.0)
[2016-10-21 06:27] LABS: HEMO FLAGS DIFF FINAL
[2016-10-21 06:34] LABS: POTASSIUM 3.8 MEQ/L (3.5-5.1)
[2016-10-21 06:37] LABS: BICARBONATE 22.3 MEQ/L (21.0-32.0)
--- NOTE | 2016-10-21 07:49 | EKG ---
Date Performed: 10/20/2016 Time Performed: 06:24:04 PTAGE: 50 years EKG: Sinus rhythm Possible left atrial abnormality Inferior T wave changes are nonspecific Borderline ECG PREVIOUS TRACING : 10/20/2016 05.37 DOCTOR: Tello Garcia Interpretating Date/Time 10/21/2016 07:44:55
--- NOTE | 2016-10-21 07:50 | EKG ---
Date Performed: 10/20/2016 Time Performed: 05:37:20 PTAGE: 50 years EKG: Sinus rhythm Possible left atrial abnormality Possible inferior infarct - age undetermined Abnormal ECG NO PREVIOUS TRACING DOCTOR: Tello Garcia Interpretating Date/Time 10/21/2016 07:45:10
[2016-10-21] MEDS: LEVOFLOXACIN 750 MG PREMIX INJ 150 ML IV SCH (08:13)
[2016-10-21] MEDS: BUMETANIDE INJ 1 MG/4 ML VIAL IV PUSH SCH (08:13)
[2016-10-21] MEDS: HEPARIN SODIUM - SQ 10,000 UNITS/ML VIAL SQ SCH ×2 (08:14→19:52)
[2016-10-21] MEDS ORDERED: ENALAPRILAT 1.25 MG/ML VIAL IV PUSH PRN (08:45)
[2016-10-21] MEDS ORDERED: cloNIDine HCL 0.1 MG TAB PO PRN (08:45)
--- NOTE | 2016-10-21 10:46 | HHI.PR ---
Subjective Remarks Follow-up UTI, sepsis, encephalopathy. Patient has been confused and making nonsensical statements. He did report some sternal pain that he described as burning. This lasted a few minutes this morning, but has resolved. Denies shortness of breath or cough. Denies nausea or vomiting. Objective Vitals Vital Signs Date Time Temp Pulse Resp B/P Pulse Ox O2 Delivery O2 Flow Rate FiO2 10/21/16 08:00 99.6 89 18 181/100 98 10/21/16 04:00 99.0 91 20 120/74 91 10/21/16 00:00 98.8 90 20 167/100 98 10/20/16 20:00 98.8 81 20 152/95 99 10/20/16 19:36 98 21 10/20/16 16:00 97.6 75 19 136/81 95 10/20/16 12:00 98.6 77 18 140/72 95 I/O 10/20/16 10/20/16 10/20/16 10/21/16 10/21/16 10/21/16 07:00 15:00 23:00 07:00 15:00 23:00 Intake Total 1350 ml 740 ml 560 ml Output Total 650 ml 1300 ml 1050 ml 800 ml Balance 700 ml -560 ml -490 ml -800 ml Intake Oral 740 ml 560 ml IV Total 1350 ml Output Urine Total 650 ml 1300 ml 1050 ml 800 ml # Bowel Movements 1 0 Result Diagram: 10/21/16 0543 10/21/1643 Imaging Last Impressions Head CT 10/20/16530 Signed Impressions: Service Date/Time: Thursday, October 20, 2016 06:49 - CONCLUSION: Negative noncontrast head CT. Triston Olsen MD Chest X-Ray 10/20/16530 Signed Impressions: Service Date/Time: Thursday, October 20, 2016 06:01 - CONCLUSION: Mild streaky opacity is now noted in both perihilar regions with no focal consolidation. The findings could indicate viral pneumonitis or early pneumonia. Reggie Alexandra MD Objective Remarks General: No acute distress. Heart: Regular rate and rhythm. No murmur. Lungs: Clear to auscultation bilaterally. No wheezes, rales, or rhonchi. Breathing is nonlabored. Abdomen: Soft, nontender, nondistended. Extremities: No lower extremity edema. Psych: Alert. Oriented to year, month, date. Not oriented to place. Makes statements that indicate confusion. Urinary Catheter: Yes Assessment to: Continue Norman insert reason: Prolonged Immobilization Vascular Central Line Catheter: No A/P Problem List: (1) Sepsis ICD Code: A41.9 Status: Acute (2) Pneumonia ICD Code: J18.9 Status: Acute (3) UTI (urinary tract infection) ICD Code: N39.0 Status: Resolved (4) Spinal cord injury, C5-C7 ICD Code: S14.105A Status: Acute (5) Tetraparesis ICD Code: G82.50 Status: Acute (6) Colostomy in place ICD Code: Z93.3 Status: Acute (7) Encephalopathy ICD Code: G93.40 Status: Acute (8) Hypertension ICD Code: I10 Status: Acute Assessment and Plan 1. Sepsis secondary to UTI, possible pneumonia: Blood cultures pending. Influenza testing negative. Urine culture pending. Continue antibiotics, IV fluids. 2. Tetraparesis: Chronic, secondary to spinal cord injury in 2013. PT eval. 3. Encephalopathy: Likely secondary to infection. Monitor mental status. Patient is much more alert today. He is oriented to year, month, date. Still displaying confusion. 4. Lower extremity edema: Will need to be cautious with IV fluids. Continue Bumex. 5. Acute kidney injury: Improved. 6. DVT prophylaxis: Heparin. 7. Hypertension: Blood pressure has remained elevated. Clonidine, Vasotec as needed. Problem Qualifiers (1) Sepsis: Qualified Code: A41.9 - Sepsis, due to unspecified organism (2) Pneumonia: Qualified Code: J18.9 - Pneumonia due to infectious organism, unspecified laterality, unspecified part of lung (3) UTI (urinary tract infection): Qualified Code: N30.00 - Acute cystitis without hematuria Richard Villavicencio MD Oct 21, 2016 10:45
[2016-10-21] MEDS: ACETAMINOPHEN 325 MG TAB PO PRN (22:20)
[2016-10-21] MEDS ORDERED: hydrOXYzine HCL 50 MG TAB PO ONE (23:00)
[2016-10-22] VITALS (8 sets, daily range): BP systolic 146–167; BP diastolic 89–97; PULSE 82–99; RESP 18–20; TEMP 99.2–101.6; O2SAT 94–100
[2016-10-22] MEDS: LEVOFLOXACIN 750 MG PREMIX INJ 150 ML IV SCH (09:44)
[2016-10-22] MEDS: HEPARIN SODIUM - SQ 10,000 UNITS/ML VIAL SQ SCH ×2 (09:44→20:36)
[2016-10-22] MEDS: ACETAMINOPHEN 325 MG TAB PO PRN (09:44)
[2016-10-22] MEDS: BUMETANIDE INJ 1 MG/4 ML VIAL IV PUSH SCH (09:44)
--- NOTE | 2016-10-22 13:14 | HHI.PR ---
Subjective Remarks Follow up UTI, encephalopathy. Patient has been having hallucinations per nursing. He states that he has chest pain, which he describes as sharp. He cannot say how long it lasts or if the pain radiates. Denies dyspnea. Does have a nonproductive cough. Objective Vitals Vital Signs Date Time Temp Pulse Resp B/P Pulse Ox O2 Delivery O2 Flow Rate FiO2 10/22/16 10:47 18 10/22/16 08:00 96 21 10/22/16 08:00 101.6 84 20 154/89 97 10/22/16 04:00 99.6 90 20 167/94 100 10/22/16 00:00 100.8 92 20 151/93 97 10/21/16 20:00 100.9 106 20 164/94 98 10/21/16 20:00 88 10/21/16 19:42 100 21 10/21/16 16:00 98.1 99 18 148/79 97 I/O 10/21/16 10/21/16 10/21/16 10/22/16 10/22/16 10/22/16 07:00 15:00 23:00 07:00 15:00 23:00 Intake Total 560 ml 60 ml 60 ml Output Total 1050 ml 1500 ml 700 ml 250 ml Balance -490 ml -1500 ml -640 ml -190 ml Intake Oral 560 ml 60 ml 60 ml Output Urine Total 1050 ml 1500 ml 700 ml 250 ml Stool Total 0 ml # Bowel Movements 0 0 0 Result Diagram: 10/21/1643 10/21/1643 Imaging Last Impressions Head CT 10/20/16530 Signed Impressions: Service Date/Time: Thursday, October 20, 2016 06:49 - CONCLUSION: Negative noncontrast head CT. Triston Olsen MD Chest X-Ray 10/20/16530 Signed Impressions: Service Date/Time: Thursday, October 20, 2016 06:01 - CONCLUSION: Mild streaky opacity is now noted in both perihilar regions with no focal consolidation. The findings could indicate viral pneumonitis or early pneumonia. Reggie Alexandra MD Objective Remarks General: No acute distress. Heart: Regular rate and rhythm. No murmur. Lungs: Clear to auscultation bilaterally. No wheezes, rales, or rhonchi. Breathing is nonlabored. Abdomen: Soft, nontender, nondistended. Extremities: No lower extremity edema. SCDs. Psych: Alert. Oriented to year, month, city. Urinary Catheter: Yes Assessment to: Continue Norman insert reason: Obstruction/Retention Vascular Central Line Catheter: No A/P Problem List: (1) Sepsis ICD Code: A41.9 Status: Acute (2) Pneumonia ICD Code: J18.9 Status: Acute (3) UTI (urinary tract infection) ICD Code: N39.0 Status: Resolved (4) Spinal cord injury, C5-C7 ICD Code: S14.105A Status: Acute (5) Tetraparesis ICD Code: G82.50 Status: Acute (6) Colostomy in place ICD Code: Z93.3 Status: Acute (7) Encephalopathy ICD Code: G93.40 Status: Acute (8) Hypertension ICD Code: I10 Status: Acute Assessment and Plan 1. Sepsis secondary to UTI, possible pneumonia: Blood cultures pending. Influenza testing negative. Urine culture growing Klebsiella. Continue antibiotics, IV fluids. 2. Tetraparesis: Chronic, secondary to spinal cord injury in 2013. PT eval. 3. Encephalopathy: Likely secondary to infection. Monitor mental status. Patient is still displaying confusion. 4. Lower extremity edema: Will need to be cautious with IV fluids. Continue Bumex. 5. Acute kidney injury: Improved. 6. DVT prophylaxis: Heparin. 7. Hypertension: Blood pressure has remained elevated. Clonidine, Vasotec as needed. Problem Qualifiers (1) Sepsis: Qualified Code: A41.9 - Sepsis, due to unspecified organism (2) Pneumonia: Qualified Code: J18.9 - Pneumonia due to infectious organism, unspecified laterality, unspecified part of lung (3) UTI (urinary tract infection): Qualified Code: N30.00 - Acute cystitis without hematuria Richard Villavicencio MD Oct 22, 2016 13:14
--- NOTE | 2016-10-22 13:57 | RADHPO ---
EXAM DATE/TIME: 10/22/2016 13:37 [place] COMPARISON: CHEST SINGLE AP, October 20, 2016, 6:01. INDICATIONS : Pneumonia. Evaluate lungs. MEDICAL HISTORY : None. SURGICAL HISTORY : CABG. ENCOUNTER: Subsequent ACUITY: 3 days PAIN SCORE: 0/10 LOCATION: chest FINDINGS: Portable AP view of the chest demonstrates a normal-sized cardiac silhouette. Lungs are mildly underi nflated. There is diffuse airspace consolidation bilaterally. No pneumothorax or pleural effusion is visualized. Bones and soft tissues demonstrate no acute finding. CONCLUSION: Diffuse bilateral airspace consolidation that has significantly increased from the prior study from 2 days ago. Triston Shepard MD on October 22, 2016 at 13:54 Board Certified Radiologist. This report was verified electronically.
[2016-10-22] MEDS: CLINDAMYCIN INJ 600 MG in SODIUM CHLORIDE 0.9% INJ 100 ML IV SCH (18:00)
[2016-10-22] MEDS: HALOPERIDOL 0.5 MG TAB PO SCH (20:34)
[2016-10-22] MEDS: LACTOBACILLUS ACIDOPHILUS TAB PO SCH (20:34)
[2016-10-22] MEDS: HYDROmorphone HCL PF 1 MG/ML VIAL IV PUSH PRN (21:13)
[2016-10-23] VITALS: BP 163/98; PULSE 93; RESP 16; TEMP 99.9; O2SAT 97
[2016-10-23] MEDS: CLINDAMYCIN INJ 600 MG in SODIUM CHLORIDE 0.9% INJ 100 ML IV SCH ×3 (00:13→12:51)
[2016-10-23 04:00] VITALS: BP 159/97; PULSE 92; RESP 18; TEMP 100.1; O2SAT 98
[2016-10-23 06:34] LABS: AUTOMATED NEUTROPHIL # 7.4 TH/MM3 (1.8-7.7); BASOPHIL % 0.3 % (0.0-2.0); EOSINOPHIL % 0.2 % (0.0-4.0); HEMATOCRIT 36.7 % (39.0-51.0); LYMPH % 14.3 % (9.0-44.0); LYMPHOCYTE # 1.3 TH/MM3 (1.0-4.8); MEAN CELL VOLUME 86.6 FL (80.0-100.0); MEAN CORPUSCULAR HEMOGLOBIN 29.3 PG (27.0-34.0); MEAN CORPUSCULAR HGB CONC 33.9 % (32.0-36.0); MONO % 7.7 % (0.0-8.0); NEUT % 77.5 % (16.0-70.0); PLATELET COUNT 134 TH/MM3 (150-450); RED BLOOD COUNT 4.23 MIL/MM3 (4.50-5.90); RED CELL DISTRIBUTION WIDTH 13.9 % (11.6-17.2); WHITE BLOOD COUNT 9.4 TH/MM3 (4.0-11.0)
[2016-10-23 06:36] LABS: HEMO FLAGS DIFF FINAL
[2016-10-23 06:39] LABS: BICARBONATE 22.8 MEQ/L (21.0-32.0)
[2016-10-23] MEDS ORDERED: POTASSIUM CHLOR 20 MEQ PREMIX 100 ML IV ONE (07:45)
[2016-10-23 08:00] VITALS: BP 162/102; PULSE 95; RESP 26; TEMP 100.6; O2SAT 98
[2016-10-23] MEDS: LACTOBACILLUS ACIDOPHILUS TAB PO SCH ×2 (09:10→20:42)
[2016-10-23] MEDS: BUMETANIDE INJ 1 MG/4 ML VIAL IV PUSH SCH (09:10)
[2016-10-23] MEDS: HALOPERIDOL 0.5 MG TAB PO SCH ×2 (09:10→20:41)
[2016-10-23] MEDS: LEVOFLOXACIN 750 MG PREMIX INJ 150 ML IV SCH (09:11)
[2016-10-23] MEDS: HYDROmorphone HCL PF 1 MG/ML VIAL IV PUSH PRN ×2 (09:11→23:41)
[2016-10-23] MEDS: HEPARIN SODIUM - SQ 10,000 UNITS/ML VIAL SQ SCH ×2 (09:12→20:42)
--- NOTE | 2016-10-23 14:43 | HHI.PR ---
Subjective Remarks Follow up UTI, pneumonia, encephalopathy. Patient states that he still has a mild cough. Cough is nonproductive. Still reporting chest pain, unchanged, 03/03. Objective Vitals Vital Signs Date Time Temp Pulse Resp B/P Pulse Ox O2 Delivery O2 Flow Rate FiO2 10/23/16 09:41 20 10/23/16 08:00 100.6 95 26 162/102 98 10/23/16 04:00 100.1 92 18 159/97 98 10/23/16 00:00 99.9 93 16 163/98 97 10/22/16 20:46 99.7 90 18 153/95 97 10/22/16 20:43 94 21 10/22/16 20:00 82 10/22/16 16:00 99.2 99 20 162/97 98 I/O 10/22/16 10/22/16 10/22/16 10/23/16 10/23/16 10/23/16 07:00 15:00 23:00 07:00 15:00 23:00 Intake Total 60 ml 480 ml 1550 ml 200 ml Output Total 250 ml 1150 ml 350 ml 125 ml Balance -190 ml -670 ml 1200 ml 75 ml Intake Oral 60 ml 480 ml 650 ml IV Total 900 ml 200 ml Output Urine Total 250 ml 1150 ml 350 ml 125 ml Stool Total 0 ml # Bowel Movements 0 Result Diagram: 10/23/16 0539 10/23/16 0539 Imaging Last Impressions Chest X-Ray 10/22/16 0000 Signed Impressions: Service Date/Time: September 13:37 - CONCLUSION: Diffuse bilateral airspace consolidation that has significantly increased from the prior study from 2 days ago. Triston Shepard MD Head CT 10/20/16 0531 Signed Impressions: Service Date/Time: Thursday, October 20, 2016 06:49 - CONCLUSION: Negative noncontrast head CT. Triston Olsen MD Objective Remarks General: No acute distress. Heart: Regular rate and rhythm. No murmur. Lungs: Clear to auscultation bilaterally. No wheezes, rales, or rhonchi. Breathing is nonlabored. Abdomen: Soft, nontender, nondistended. Extremities: No lower extremity edema. SCDs. Psych: Alert. Oriented to year, month, date. Urinary Catheter: Yes Assessment to: Continue Norman insert reason: Obstruction/Retention Vascular Central Line Catheter: No A/P Problem List: (1) Sepsis ICD Code: A41.9 Status: Acute (2) Pneumonia ICD Code: J18.9 Status: Acute (3) UTI (urinary tract infection) ICD Code: N39.0 Status: Resolved (4) Spinal cord injury, C5-C7 ICD Code: S14.105A Status: Acute (5) Tetraparesis ICD Code: G82.50 Status: Acute (6) Colostomy in place ICD Code: Z93.3 Status: Acute (7) Encephalopathy ICD Code: G93.40 Status: Acute (8) Hypertension ICD Code: I10 Status: Acute Assessment and Plan 1. Sepsis secondary to UTI, possible pneumonia: Blood cultures are negative so far. Influenza testing negative. Urine culture growing Klebsiella. Continue antibiotics, IV fluids. 2. Tetraparesis: Chronic, secondary to spinal cord injury in 2013. Continue PT, OT. 3. Encephalopathy: Likely secondary to infection. Monitor mental status. Patient is still displaying confusion, hallucinations. Haldol BID. 4. Lower extremity edema: Will need to be cautious with IV fluids. Continue Bumex. 5. Acute kidney injury: Improved. 6. DVT prophylaxis: Heparin. 7. Hypertension: Blood pressure has remained elevated. Clonidine, Vasotec as needed. Add lisinopril. 8. Hypokalemia: Supplement potassium. Problem Qualifiers (1) Sepsis: Qualified Code: A41.9 - Sepsis, due to unspecified organism (2) Pneumonia: Qualified Code: J18.9 - Pneumonia due to infectious organism, unspecified laterality, unspecified part of lung (3) UTI (urinary tract infection): Qualified Code: N30.00 - Acute cystitis without hematuria Richard Villavicencio MD Oct 23, 2016 14:43
[2016-10-23] MEDS: LISINOPRIL 5 MG TAB PO SCH (15:36)
--- NOTE | 2016-10-23 15:46 | PD.ID.CON ---
History of Present Illness Service ID Consult Requested By Dr Del Cid Reason for Consult UTI Primary Care Physician Jeffry Parr Diagnoses: History of Present Illness Pt is confused, hallucinating and is a unreliable historian 50 yo M sp traumatic SCI presented with fever x 1-2 days was found to have abnormal UA with puyria, hematuria and urine culture grew out >100,000 CFU/ML KLEBSIELLA OXYTOCA The organisma is sensitivive to levaquine which was started on admission Pt nnoted to have mental status change, he is clearly hallucinating He cont to have fever and his CXR showed diffuse infiltrates He is tachycardic His flu test was negative Serial CXRs showed preogressive pulmonary infiltrates Review of Systems ROS Limitations: Altered Mental Status, Poor Historian Past Family Social History Allergies: Coded Allergies: Morphine (Verified Allergy, Unknown, Confusion, 10/20/16) PT DENIES ALLERGY TO THIS MEDICATION 02-04-16 Uncoded Allergies: morphi (Adverse Reaction, Unknown, Confusion, 06/21/14) Past Medical History Spinal cord injury Tetraparesis Neurogenic bladder Past Surgical History Colostomy Active Ordered Medications Medications where reviewed in EMR Antibiotics Include: clindamycin levaquine Family History Diabetes Arthritis Social History Smokes one pack per day. No alcohol or illicit drug use reported. Physical Exam Vital Signs Vital Signs Date Time Temp Pulse Resp B/P Pulse Ox O2 Delivery O2 Flow Rate FiO2 10/23/16 09:41 20 10/23/16 08:00 100.6 95 26 162/102 98 10/23/16 04:00 100.1 92 18 159/97 98 10/23/16 00:00 99.9 93 16 163/98 97 10/22/16 20:46 99.7 90 18 153/95 97 10/22/16 20:43 94 21 10/22/16 20:00 82 10/22/16 16:00 99.2 99 20 162/97 98 Physical Exam CONSTITUTIONAL/GENERAL: This is an adequately nourished patient, in mild resp distress. SKIN: No jaundice, rashes, or lesions. Ecchymoses on upper extremities. No wounds seen anteriorly. Skin temperature appropriate. Not diaphoretic. HEAD: Atraumatic. Normocephalic. EYES: Pupils equal and round and reactive. Extraocular motions intact. No scleral icterus. No injection or drainage. Fundi not examined. ENT: Hearing grossly normal. Nose without bleeding or purulent drainage. Oral mucosae without visible erythema, exudates, masses, or lesions. Poor dentition NECK: Trachea midline. Supple, nontender. No palpable thyroid enlargement or nodularity. CARDIOVASCULAR: Regular rate and rhythm without murmurs, gallops, or rubs. No JVD. Peripheral pulses symmetric. RESPIRATORY/CHEST: Symmetric, unlabored respirations. Clear to auscultation. Breath sounds equal bilaterally. No wheezes, rales, or rhonchi. GASTROINTESTINAL: Abdomen soft, non-tender, nondistended. No hepato-splenomegaly , or palpable masses. No guarding. Bowel sounds present. GENITOURINARY: Without palpable bladder distension. Norman catheter in place with somewhat cloudy urine MUSCULOSKELETAL: Extremities without clubbing, cyanosis, or edema. . No mottling or clubbing. Contracted hands Muscle bulk loss LYMPHATICS: No palpable cervical or supraclavicular adenopathy. NEUROLOGICAL: Awake and alert. Very confused Follows commands. Incoherent speech Incomplete tetraplegia (baseline) Moves proximal BUE. PSYCHIATRIC: + apparent hallucinations + incoherent thought process. Laboratory Laboratory Tests Test 10/23/16 05:39 White Blood Count 9.4 Red Blood Count 4.23 Hemoglobin 12.4 Hematocrit 36.7 Mean Corpuscular Volume 86.6 Mean Corpuscular Hemoglobin 29.3 Mean Corpuscular Hemoglobin 33.9 Concent Red Cell Distribution Width 13.9 Platelet Count 134 Mean Platelet Volume 10.3 Neutrophils (%) (Auto) 77.5 Lymphocytes (%) (Auto) 14.3 Monocytes (%) (Auto) 7.7 Eosinophils (%) (Auto) 0.2 Basophils (%) (Auto) 0.3 Neutrophils # (Auto) 7.4 Lymphocytes # (Auto) 1.3 Monocytes # (Auto) 0.7 Eosinophils # (Auto) 0.0 Basophils # (Auto) 0.0 CBC Comment DIFF FINAL Differential Comment Sodium Level 141 Potassium Level 3.0 Chloride Level 106 Carbon Dioxide Level 22.8 Anion Gap 12 Blood Urea Nitrogen 15 Creatinine 0.78 Estimat Glomerular Filtration 129 Rate Random Glucose 98 Calcium Level 8.3 Date/Time Procedure Status Source Growth 10/20/16 07:42 Influenza Types A,B Antigen (IRMA) - Final Complete Nasal Washing NEGATIVE FOR FLU A AND B ANTIGEN.... 10/20/16 05:50 Urine Culture - Final Complete Urine Catheterized Urine Klebsiella Oxytoca 10/20/16 05:47 Aerobic Blood Culture - Preliminary Resulted Blood Peripheral NO GROWTH IN 3 DAYS 10/20/16 05:47 Anaerobic Blood Culture - Preliminary Resulted Blood Peripheral NO GROWTH IN 3 DAYS Result Diagram: 10/23/16 0539 10/23/16 0539 Imaging Last Impressions Chest X-Ray 10/22/16 0000 Signed Impressions: Service Date/Time: September 13:37 - CONCLUSION: Diffuse bilateral airspace consolidation that has significantly increased from the prior study from 2 days ago. Triston Shepard MD Head CT 10/20/16 0531 Signed Impressions: Service Date/Time: Thursday, October 20, 2016 06:49 - CONCLUSION: Negative noncontrast head CT. Triston Olsen MD Assessment and Plan Assessment and Plan UTI in the settings of neurogenic bladder Diffuse pulmonary infiltrates ? 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
[2016-10-23] MEDS ORDERED: Vancomycin Consult Pharmacy 1 EA OTHER SCH (16:00)
[2016-10-23] MEDS: PIPERACIL-TAZO 4.5 GM PREMIX 100 ML IV SCH ×2 (17:13→22:01)
[2016-10-23] MEDS: VANCOMYCIN 1,500 MG/NS 500 ML IV SCH ×2 (18:42)
[2016-10-23 20:00] VITALS: BP 154/93; PULSE 88; RESP 18; TEMP 100; O2SAT 97
--- NOTE | 2016-10-23 20:08 | MB ---
cc: AROLDOJOSSUE DATE OF CONSULTATION 10/23/16 REASON FOR CONSULTATION Altered mental status and hallucination. 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 The patient states that the reason for admission was: "Fluid in my lungs". He was found to be at times hallucinating, talking to someone who was not in the room. He denies this and during my the encounter I noticed that he was talking with his head turned to the left talking with a "person" and he told them that "I'm with a neurologist. You wanna listen to what he is saying" and he turned to me and I asked him whether he was talking with someone over the phone, but he denied that and the nurse also mentioned that he talks in full sentences with imaginary "People". Apparently the patient is having auditory hallucinations at this time. The nurse states that she took care of him in the main hospital and this is something new. REVIEW OF SYSTEMS A 12-point review of systems is negative except for what is stated in the HPI. PAST MEDICAL HISTORY 1. Spinal cord injury, 2. Spastic tetraparesis 3. Neurogenic bladder. PAST SURGICAL HISTORY Colostomy ALLERGIES MORPHINE FAMILY HISTORY Diabetes and arthritis. SOCIAL HISTORY Smokes one-pack per day. No alcohol or illicit drug is reported. PHYSICAL EXAMINATION GENERAL: Awake, alert, oriented to time, person and place. No slurring of speech was noted. During the encounter, he talked to an "imaginary person" in full coherent speech HEENT: Atraumatic, normocephalic. Intact vision, intact hearing RESPIRATORY: Clear to auscultation. No wheezes. CARDIOVASCULAR: Regular rate and rhythm. No murmurs. EXTREMITIES: Spastic quadriparesis with bilateral hand and elbow contractures and knee and foot contractures with bilateral leg swelling, hyperreflexia throughout. NEUROLOGIC: Cerebellar function could not be accurately done due to the spastic weakness. No signs of meningeal irritation. Cranial nerve examination is grossly intact. PSYCHIATRIC: Auditory hallucinations. LABORATORY DATA White blood cells 18.7, hemoglobin 14.5, MCV 86.5, platelets 446. INR 1.1, BUN 18, creatinine 1.5, glucose 126. lactic acid 2, calcium level 8.5, phosphorus 2.3, magnesium 2.3. Urine tox negative. IMAGING STUDIES Head CT scan negative noncontrast head CT scan. DIAGNOSTIC IMPRESSION 1. Auditory hallucinations. Examination with spastic tetraparesis (chronic finding). 2. No signs of meningeal irritation. 3. Possible etiology is infectious/metabolic encephalopathy 4. Auditory hallucination may be an association with background psychiatric abnormality 5. Less likely to be a meningioencephalitic process. PLAN - Neuro checks q. four hourly. - Continue antibiotics. - Consider consulting psychiatry. - EEG - DVT prophylaxis. Thank you for the opportunity to participate in the care of your patient. MD SAMINA Estevez/ /5:40 PM /7:53 PM [email or web address]
[2016-10-24] VITALS (8 sets, daily range): BP systolic 134–173; BP diastolic 80–101; PULSE 76–93; RESP 18–20; TEMP 97.3–100.2; O2SAT 95–98
[2016-10-24] MEDS: ACETAMINOPHEN 325 MG TAB PO PRN (00:38)
[2016-10-24] MEDS: PIPERACIL-TAZO 4.5 GM PREMIX 100 ML IV SCH ×4 (04:04→23:25)
[2016-10-24] MEDS: LORazepam 2 MG/ML VIAL IV PUSH PRN (04:10)
[2016-10-24] MEDS: VANCOMYCIN 1,500 MG/NS 500 ML IV SCH ×4 (05:31→18:31)
[2016-10-24 07:51] LABS: AUTOMATED NEUTROPHIL # 5.4 TH/MM3 (1.8-7.7); BASOPHIL % 0.5 % (0.0-2.0); EOSINOPHIL # 0.1 TH/MM3 (0-0.4); EOSINOPHIL % 1.1 % (0.0-4.0); HEMATOCRIT 36.4 % (39.0-51.0); HEMO FLAGS DIFF FINAL; LYMPH % 20.5 % (9.0-44.0); LYMPHOCYTE # 1.6 TH/MM3 (1.0-4.8); MEAN CORPUSCULAR HEMOGLOBIN 28.6 PG (27.0-34.0); MEAN CORPUSCULAR HGB CONC 32.9 % (32.0-36.0); MONO % 8.3 % (0.0-8.0); NEUT % 69.6 % (16.0-70.0); PLATELET COUNT 141 TH/MM3 (150-450); RED BLOOD COUNT 4.19 MIL/MM3 (4.50-5.90); RED CELL DISTRIBUTION WIDTH 14.2 % (11.6-17.2); WHITE BLOOD COUNT 7.7 TH/MM3 (4.0-11.0)
[2016-10-24 08:11] LABS: BICARBONATE 24.3 MEQ/L (21.0-32.0)
[2016-10-24] MEDS: LACTOBACILLUS ACIDOPHILUS TAB PO SCH ×2 (09:23→20:44)
[2016-10-24] MEDS: HALOPERIDOL 0.5 MG TAB PO SCH ×2 (09:23→20:44)
[2016-10-24] MEDS: LISINOPRIL 5 MG TAB PO SCH (09:24)
[2016-10-24] MEDS: LEVOFLOXACIN 750 MG PREMIX INJ 150 ML IV SCH (09:28)
[2016-10-24] MEDS: HEPARIN SODIUM - SQ 10,000 UNITS/ML VIAL SQ SCH ×2 (09:31→20:44)
[2016-10-24] MEDS: BUMETANIDE INJ 1 MG/4 ML VIAL IV PUSH SCH (09:31)
--- NOTE | 2016-10-24 14:28 | PD.CONS ---
Provisional Diagnosis Admission Date Oct 20, 2016 at 07:29 [place]. Psychosis NOS History of Present Illness Service Psychiatry Consult Requested By Primary Care Physician Jeffry ANDREWS The patient is a 50 years old man, domiciled with his mother, divorce, without any previous psychiatric history, no previous psychiatric hospitalizations, no previous suicide attempts, medical history tetraparesis secondary to spinal cord injury, admitted due to sepsis, pneumonia, chest pain, UTI. Patient was consulted to psychiatry due to new onset visual hallucinations. On psychiatric evaluation patient is calm and cooperative, he reports good mood, states that he came to the hospital due to chest pain, days later developed visual hallucinations consistent in seeing people coming inside his room and sometimes geometrical shapes. Patient has not experienced any visual hallucinations in the last 24 hours. He says that he is back to normal, feels much better. He denies anxiety, jean and other perceptual disturbances. Patient is fully oriented 3, no fluctuation of consciousness, delirium, gross cognitive impairment observed. Review of Systems Constitutional: DENIES: Diaphoretic episodes, Fatigue, Fever, Weight gain, Weight loss, Chills, Dizziness, Change in appetite, Night Sweats Endocrine: DENIES: Heat/cold intolerance, Polydipsia, Polyuria, Polyphagia Eyes: DENIES: Blurred vision, Diplopia, Eye inflammation, Eye pain, Vision loss , Photosensitivity, Double Vision Ears, nose, mouth, throat: DENIES: Tinnitus, Hearing loss, Vertigo, Nasal discharge, Oral lesions, Throat pain, Hoarseness, Ear Pain, Running Nose, Epistaxis, Sinus Pain, Toothache, Odynophagia Cardiovascular: DENIES: Chest pain, Palpitations, Syncope, Dyspnea on Exertion , PND, Lower Extremity Edema, Orthopnea, Claudication Gastrointestinal: DENIES: Abdominal pain, Black stools, Bloody stools, Constipation, Diarrhea, Nausea, Vomiting, Difficulty Swallowing, Anorexia Musculoskeletal: DENIES: Joint pain, Muscle aches, Stiffness, Joint Swelling, Back pain, Neck pain Integumentary: DENIES: Abnormal pigmentation, Nail changes, Pruritus, Rash Hematologic/lymphatic: DENIES: Bruising, Lymphadenopathy Immunologic/allergic: DENIES: Eczema, Urticaria Neurologic: DENIES: Abnormal gait, Headache, Localized weakness, Paresthesias, Seizures, Speech Problems, Tremor, Poor Balance Past Family Social History Coded Allergies: Morphine (Verified Allergy, Unknown, Confusion, 10/20/16) PT DENIES ALLERGY TO THIS MEDICATION 02-04-16 Uncoded Allergies: morphi (Adverse Reaction, Unknown, Confusion, 06/21/14) Active Scripts Pregabalin (Lyrica)200 Mg Emv232 Mg PO TID #90 CAP Ref 3 Prov:Jordan Quintero MD 10/07/16 Reported Medications Baclofen 20 Mg Tab20 Mg PO QID #120 TAB Ref 0 10/08/16 Fentanyl Patch 72 HR 100 Mcg/Hr [id number] Mcg T-DERMAL Q72H #10 PATCH Ref 0 Remove old patch when new one placed. 10/08/16 Gabapentin 600 Mg Tab1,200 Mg PO TID #180 TAB Ref 0 10/08/16 Current Medications Medications (Trade) Dose Ordered Sig/Melanie Route Start Time Stop Time Status Last Admin (Tylenol) 650 mg Q4H PRN PO 10/20/16 07:30 10/24/16 00:38 (Milk Of Radha Elliott) 30 ml Q12H PRN PO 10/20/16 07:30 Naloxone HCl 0.4 mg 0.4 mg UNSCH PRN IV 10/20/16 07:30 (Levaquin 750 Mg Premix Inj) 150 ml @ 100 mls/hr Q24H IV 10/20/16 08:00 10/24/16 09:28 (Heparin Inj) 5,000 units Q12HR SQ 10/20/16 21:00 10/24/16 09:31 (Bumex Inj) 0.5 mg DAILY IV PUSH 10/20/16 10:00 10/24/16 09:31 (Dilaudid Pf Inj) 0.2 mg Q4H PRN IV PUSH 10/21/16 01:00 10/23/16 23:41 (Catapres) 0.1 mg Q6H PRN PO 10/21/16 08:45 10/24/16 00:38 (Vasotec Inj) 1.25 mg Q6H PRN IV PUSH 10/21/16 08:45 10/23/16 23:38 (Haldol) 0.5 mg BID PO 10/22/16 21:00 10/24/16 09:23 (Lactinex) 1 tab Q12HR PO 10/22/16 21:00 10/24/16 09:23 Lisinopril 5 mg 5 mg DAILY PO 10/23/16 14:45 10/24/16 09:24 Piperacillin Sod/ Tazobactam Sod 100 ml @ 200 mls/hr Q6H IV 10/23/16 17:00 10/24/16 11:28 Pharmacy Profile Note 0 ml @ 0 mls/hr UNSCH OTHER 10/23/16 16:00 (Vancomycin Inj/ NS 500 ml Inj) 515 ml @ 257.5 mls/ hr Q12H IV 10/23/16 18:00 10/24/16 05:31 Miscellaneous Information SPECIFIC LAB TO BE [facility]... ONCE ONCE XX 10/25/16 05:45 10/25/16 05:46 (Ativan Inj) 1 mg Q4H PRN IV PUSH 10/24/16 01:15 10/24/16 04:10 Physical Exam Vital Signs Vital Signs Date Time Temp Pulse Resp B/P Pulse Ox O2 Delivery O2 Flow Rate FiO2 10/24/16 08:30 76 10/24/16 08:00 99.6 18 134/82 96 10/22/16 20:43 21 10/20/16 08:28 Room Air I/O 10/23/16 10/23/16 10/24/16 08:00 16:00 00:00 Intake Total 200 ml 480 ml 725 ml Output Total 125 ml 1300 ml Balance 75 ml -820 ml 725 ml Mental Status Examination Appearance man, age appearing, good hygiene, calm, superficially cooperative Speech: Hesitant, Slow Orientation: x3 Thought Process: Logical Thought Content: Unremarkable Hallucination Type: None (none at this moment), Auditory Suicidal Ideation: No Previous Suicide Attempts: No Homicidal Ideation: No Previous Homicide Attempts: No Insight: Good Judgement: WNL Affect: Other (flat) Mood: Euthymic Motor Activity: Normal gait Assessment & Plan Problem List: (1) Unspecified psychosis Assessment & Plan: The patient is a 50 years old man, without any previous psychiatric history, no previous psychiatric hospitalizations, no previous suicidal attempts, medical history of tetraparesis secondary to cervical cord injury, hospitalized due to sepsis, pneumonia, UTI, consulted to psychiatry due to visual hallucinations. On psychiatric evaluation the patient does not present any evidence of subjective or objective depression, anxiety, jean or perceptual disturbances. Patient denies visual and auditory hallucination at this moment. He denies suicidal or homicidal ideation. Patient is fully oriented 3, with no fluctuation of consciousness, attention deficit, confusion observed at this time. Patient was seen by neurology, CT was unremarkable, EEG is still pending. Etiology of visual hallucinations are more probably secondary to underline sepsis, UTI and pneumonia. Neurological and psychiatric houses are less probable. I will agree with Haldol 0.5 mg twice a day, will increase to 1 mg twice a day if hallucinations persist. Patient does not meet criteria for psychiatric hospitalization for this mom. Psychoeducation, supportive motivation provided. We'll continue follow-up. ICD Code: F29 Assessment & Plan Estimated LOS: days Jhonathan Reynolds MD Oct 24, 2016 14:28
[2016-10-24] MEDS: HYDROmorphone HCL PF 1 MG/ML VIAL IV PUSH PRN (15:00)
[2016-10-24] MEDS ORDERED: IOHEXOL 350 MG/ML 10 ML VIAL (for RAD DIAG) IV ONE (16:06)
--- NOTE | 2016-10-24 16:20 | RADHPO ---
EXAM DATE/TIME: 10/24/2016 15:43 [facility] COMPARISON: CT THORAX W CONTRAST, March 27, 2014, 9:54. INDICATIONS : Shortness of breath, evaluate for pneumonia. IV CONTRAST: 60 cc Omnipaque 350 (iohexol) IV RADIATION DOSE: 15.60 CTDIvol (mGy) MEDICAL HISTORY : cervical fracture SURGICAL HISTORY : IVC Filter placement. ENCOUNTER: Initial ACUITY: 1 day PAIN SCALE: 0/10 LOCATION: Bilateral chest TECHNIQUE: Volumetric scanning of the chest was performed. Using automated exposure control and adjustment of t he mA and/or kV according to patient size, radiation dose was kept as low as reasonably achievable to obtain optimal diagnostic quality images. FINDINGS: Widespread but patchy, moderate to severe alveolar infiltrates are seen of both lungs. There seems to be a slight upper lobe predominance. Tiny bilateral pleural effusions are present. There is no pneum othorax. There is a 14 by 16mm right paratracheal lymph node and subcarinal lymph nodes that measure up t o 15 x 19 mm. 11 by 16mm right and 9 x 14 mm left hilar lymph nodes are also present. These are large r than before. Heart size upper limits of normal. Coronary artery calcification noted, especially left anterior descending. CONCLUSION: 1. Extensive acute alveolar infiltrates of both lungs, nonspecific but presumably infectious or infla mmatory. If the patient is immunocompromised, PCP pneumonia would be in the differential. Pulmonary h emorrhage or heterogeneous pulmonary edema is also conceivable. 2. Mildly enlarged mediastinal and hilar lymph nodes, presumably reactive. 3. Small bilateral pleural effusions. 4. Mild panchamber enlargement of the heart. Coronary artery calcification noted. Triston Olsen MD on October 24, 2016 at 16:12 Board Certified Radiologist. This report was verified electronically.
[2016-10-24] MEDS: POTASSIUM CHLOR 20 MEQ PREMIX 100 ML IV SCH ×2 (16:27→18:31)
--- NOTE | 2016-10-24 16:28 | HHI.PR ---
Subjective Remarks Follow up fever, encephalopathy, chest pain. The patient states that he feels better today. He is not having any chest pain currently. Did report chest pain this morning. No dyspnea. Objective Vitals Vital Signs Date Time Temp Pulse Resp B/P Pulse Ox O2 Delivery O2 Flow Rate FiO2 10/24/16 08:30 76 10/24/16 08:00 99.6 87 18 134/82 96 10/24/16 04:05 99.5 80 20 153/92 98 10/24/16 00:40 100.2 20 173/101 10/24/16 00:11 20 10/24/16 00:00 100.1 88 20 172/100 98 10/23/16 20:00 100.0 88 18 154/93 97 10/23/16 20:00 88 I/O 10/23/16 10/23/16 10/23/16 10/24/16 10/24/16 10/24/16 06:59 14:59 22:59 06:59 14:59 22:59 Intake Total 200 ml 480 ml 1450 ml Output Total 125 ml 1300 ml 450 ml 1000 ml Balance 75 ml -820 ml 1000 ml -1000 ml Intake Oral 480 ml IV Total 200 ml 1450 ml Output Urine Total 125 ml 1300 ml 450 ml 1000 ml Result Diagram: 10/24/16 0655 10/24/16 0655 Imaging Last Impressions Chest X-Ray 10/22/16 0000 Signed Impressions: Service Date/Time: September 13:37 - CONCLUSION: Diffuse bilateral airspace consolidation that has significantly increased from the prior study from 2 days ago. Triston Shepard MD Head CT 10/20/16 0531 Signed Impressions: Service Date/Time: Thursday, October 20, 2016 06:49 - CONCLUSION: Negative noncontrast head CT. Triston Olsen MD Objective Remarks General: No acute distress. Heart: Regular rate and rhythm. No murmur. Lungs: Clear to auscultation bilaterally. No wheezes, rales, or rhonchi. Breathing is nonlabored. Abdomen: Soft, nontender, nondistended. Extremities: No lower extremity edema. SCDs. Psych: Alert. Oriented, but does display confusion. Procedures None Urinary Catheter: No Vascular Central Line Catheter: No A/P Problem List: (1) Sepsis ICD Code: A41.9 Status: Acute (2) Pneumonia ICD Code: J18.9 Status: Acute (3) UTI (urinary tract infection) ICD Code: N39.0 Status: Resolved (4) Spinal cord injury, C5-C7 ICD Code: S14.105A Status: Acute (5) Tetraparesis ICD Code: G82.50 Status: Acute (6) Colostomy in place ICD Code: Z93.3 Status: Acute (7) Encephalopathy ICD Code: G93.40 Status: Acute (8) Hypertension ICD Code: I10 Status: Acute Assessment and Plan 1. Sepsis secondary to UTI, pneumonia: Blood cultures are negative so far. Influenza testing negative. Urine culture growing Klebsiella. Continue antibiotics, IV fluids. CT of the chest shows diffuse pulmonary infiltrates. Appreciate infectious disease recommendations. 2. Tetraparesis: Chronic, secondary to spinal cord injury in 2013. Continue PT, OT. 3. Encephalopathy: Likely secondary to infection. Monitor mental status. Patient is still displaying confusion, hallucinations. Haldol BID. Appreciate psychiatry, neurology recommendations. 4. Lower extremity edema: Will need to be cautious with IV fluids. Continue Bumex. 5. Acute kidney injury: Improved. 6. DVT prophylaxis: Heparin. 7. Hypertension: Blood pressure control is better today. Continue lisinopril. Clonidine, Vasotec as needed. 8. Hypokalemia: Supplement potassium. Recheck labs in the morning. 9. Chest pain: Likely secondary to pneumonia. No chest pain at the time of my examination today. Problem Qualifiers (1) Sepsis: Qualified Code: A41.9 - Sepsis, due to unspecified organism (2) Pneumonia: Qualified Code: J18.9 - Pneumonia due to infectious organism, unspecified laterality, unspecified part of lung (3) UTI (urinary tract infection): Qualified Code: N30.00 - Acute cystitis without hematuria Richard Villavicencio MD Oct 24, 2016 16:28
[2016-10-25] VITALS: BP 169/103; PULSE 83; RESP 20; TEMP 98.7; O2SAT 96
[2016-10-25] MEDS: HYDROmorphone HCL PF 1 MG/ML VIAL IV PUSH PRN (01:58)
[2016-10-25 04:00] VITALS: BP 166/96; PULSE 79; RESP 20; TEMP 99.4; O2SAT 97
[2016-10-25] MEDS: LORazepam 2 MG/ML VIAL IV PUSH PRN ×2 (04:25→22:48)
[2016-10-25] MEDS ORDERED: PHARMACY ORDERED LAB XX ONE (05:45)
[2016-10-25] MEDS: PIPERACIL-TAZO 4.5 GM PREMIX 100 ML IV SCH ×4 (06:02→22:21)
[2016-10-25] MEDS: VANCOMYCIN 1,500 MG/NS 500 ML IV SCH ×4 (06:03→17:23)
[2016-10-25 06:53] LABS: AUTOMATED NEUTROPHIL # 4.9 TH/MM3 (1.8-7.7); BASOPHIL % 0.3 % (0.0-2.0); EOSINOPHIL # 0.2 TH/MM3 (0-0.4); EOSINOPHIL % 2.8 % (0.0-4.0); HEMATOCRIT 35.9 % (39.0-51.0); HEMO FLAGS DIFF FINAL; LYMPH % 23.3 % (9.0-44.0); LYMPHOCYTE # 1.8 TH/MM3 (1.0-4.8); MEAN CELL VOLUME 86.3 FL (80.0-100.0); MEAN CORPUSCULAR HEMOGLOBIN 29.5 PG (27.0-34.0); MEAN CORPUSCULAR HGB CONC 34.2 % (32.0-36.0); MONO % 8.8 % (0.0-8.0); NEUT % 64.8 % (16.0-70.0); PLATELET COUNT 147 TH/MM3 (150-450); RED BLOOD COUNT 4.16 MIL/MM3 (4.50-5.90); RED CELL DISTRIBUTION WIDTH 14.2 % (11.6-17.2); WHITE BLOOD COUNT 7.6 TH/MM3 (4.0-11.0)
[2016-10-25 07:00] LABS: POTASSIUM 3.4 MEQ/L (3.5-5.1)
[2016-10-25 07:06] LABS: BICARBONATE 24.8 MEQ/L (21.0-32.0)
--- NOTE | 2016-10-25 07:31 | MG ---
cc: NILSON MÁRQUEZ Sex: M EEG: [id number] INTRODUCTION: 50-year-old, hyperventilation not performed. Pneumonia, auditory hallucinations. MEDICATIONS: Vancomycin, Levaquin, Tylenol. DESCRIPTION: Diffuse low amplitude beta rhythms are noted. Muscle artifact is seen quite a bit throughout the recording over the temporal head regions. I see no hemisphere asymmetries. Photic stimulation is performed without any posterior driving. Hyperventilation was not performed. IMPRESSION Generally unremarkable EEG, no evidence for focal or diffuse abnormality. MD GOOD Navarro/ANTWON /7:15 AM 7:19 AM
[2016-10-25 08:00] VITALS: BP 160/110; PULSE 74; RESP 20; TEMP 99.6; O2SAT 98
[2016-10-25] MEDS ORDERED: POTASSIUM CL 40 MEQ/30 ML LIQ UDC PO ONE (08:00)
[2016-10-25] MEDS: HALOPERIDOL 0.5 MG TAB PO SCH ×2 (08:46→21:06)
[2016-10-25] MEDS: LACTOBACILLUS ACIDOPHILUS TAB PO SCH ×2 (08:46→21:06)
[2016-10-25] MEDS: LISINOPRIL 5 MG TAB PO SCH (08:46)
[2016-10-25] MEDS: BUMETANIDE INJ 1 MG/4 ML VIAL IV PUSH SCH (08:48)
[2016-10-25] MEDS: LEVOFLOXACIN 750 MG PREMIX INJ 150 ML IV SCH (10:00)
[2016-10-25] MEDS: HEPARIN SODIUM - SQ 10,000 UNITS/ML VIAL SQ SCH ×2 (10:03→21:07)
[2016-10-25 12:00] VITALS: BP 180/105; PULSE 75; RESP 20; TEMP 99.4; O2SAT 100
[2016-10-25 16:00] VITALS: BP 143/94; PULSE 70; RESP 20; TEMP 98.5; O2SAT 98
--- NOTE | 2016-10-25 16:37 | HHI.PR ---
Subjective Remarks Follow up fever, chest pain, UTI, pneumonia. Patient reporting that the chest pain is back, but less severe (3.5/10 compared to 5/10 previously). Denies cough or dyspnea. Objective Vitals Vital Signs Date Time Temp Pulse Resp B/P Pulse Ox O2 Delivery O2 Flow Rate FiO2 10/25/16 16:00 98.5 70 20 143/94 98 10/25/16 12:00 99.4 75 20 180/105 100 10/25/16 08:00 99.6 74 20 160/110 98 10/25/16 04:00 99.4 79 20 166/96 97 10/25/16 00:00 98.7 83 20 169/103 96 10/24/16 20:00 97.3 81 20 153/98 97 10/24/16 19:00 93 I/O 10/24/16 10/24/16 10/24/16 10/25/16 10/25/16 10/25/16 07:00 15:00 23:00 07:00 15:00 23:00 Intake Total 725 ml 2150 ml 484 ml 240 ml Output Total 450 ml 1000 ml 651 ml 1300 ml 1650 ml Balance 275 ml -1000 ml 1499 ml -816 ml -1410 ml Intake Oral 80 ml 160 ml 240 ml IV Total 725 ml 2070 ml 324 ml Output Urine Total 450 ml 1000 ml 650 ml 900 ml 1500 ml Stool Total 1 ml 400 ml 150 ml Result Diagram: 10/25/16 0604 10/25/16 0604 Imaging Last Impressions Chest CT 10/24/16 0000 Signed Impressions: Service Date/Time: Monday, October 24, 2016 15:43 - CONCLUSION: 1. Extensive acute alveolar infiltrates of both lungs, nonspecific but presumably infectious or inflammatory. If the patient is immunocompromised, PCP pneumonia would be in the differential. Pulmonary hemorrhage or heterogeneous pulmonary edema is also conceivable. 2. Mildly enlarged mediastinal and hilar lymph nodes , presumably reactive. 3. Small bilateral pleural effusions. 4. Mild panchamber enlargement of the heart. Coronary artery calcification noted. Triston Olsen MD Chest X-Ray 10/22/16 0000 Signed Impressions: Service Date/Time: September 13:37 - CONCLUSION: Diffuse bilateral airspace consolidation that has significantly increased from the prior study from 2 days ago. Triston Shepard MD Head CT 10/20/16 0531 Signed Impressions: Service Date/Time: Thursday, October 20, 2016 06:49 - CONCLUSION: Negative noncontrast head CT. Triston Olsen MD Objective Remarks General: No acute distress. Heart: Regular rate and rhythm. No murmur. Lungs: Clear to auscultation bilaterally. No wheezes, rales, or rhonchi. Breathing is nonlabored. Abdomen: Soft, nontender, nondistended. Extremities: No lower extremity edema. SCDs. Psych: Alert. Oriented. Procedures None Urinary Catheter: No Vascular Central Line Catheter: No A/P Problem List: (1) Sepsis ICD Code: A41.9 Status: Acute (2) Pneumonia ICD Code: J18.9 Status: Acute (3) UTI (urinary tract infection) ICD Code: N39.0 Status: Resolved (4) Spinal cord injury, C5-C7 ICD Code: S14.105A Status: Acute (5) Tetraparesis ICD Code: G82.50 Status: Acute (6) Colostomy in place ICD Code: Z93.3 Status: Acute (7) Encephalopathy ICD Code: G93.40 Status: Acute (8) Hypertension ICD Code: I10 Status: Acute Assessment and Plan 1. Sepsis secondary to UTI, pneumonia: Blood cultures are negative so far. Influenza testing negative. Urine culture growing Klebsiella. Continue antibiotics, IV fluids. CT of the chest shows diffuse pulmonary infiltrates. Appreciate infectious disease recommendations. Patient does not report any respiratory symptoms. 2. Tetraparesis: Chronic, secondary to spinal cord injury in 2013. Continue PT, OT. 3. Encephalopathy: Likely secondary to infection. Monitor mental status. Patient is still displaying confusion, but less than he was upon admission. Haldol BID. Appreciate psychiatry, neurology recommendations. 4. Lower extremity edema: Will need to be cautious with IV fluids. Continue Bumex. 5. Acute kidney injury: Improved. 6. DVT prophylaxis: Heparin. 7. Hypertension: Continue lisinopril. Clonidine, Vasotec as needed. 8. Hypokalemia: Supplement potassium. Recheck labs in the morning. 9. Chest pain: Likely secondary to pneumonia. Problem Qualifiers (1) Sepsis: Qualified Code: A41.9 - Sepsis, due to unspecified organism (2) Pneumonia: Qualified Code: J18.9 - Pneumonia due to infectious organism, unspecified laterality, unspecified part of lung (3) UTI (urinary tract infection): Qualified Code: N30.00 - Acute cystitis without hematuria Richard Villavicencio MD Oct 25, 2016 16:37
[2016-10-25 20:00] VITALS: BP 164/109; PULSE 83; PULSE 86; RESP 20; TEMP 99; O2SAT 99
[2016-10-26] VITALS: BP 147/99; PULSE 72; RESP 20; TEMP 98.1; O2SAT 98
[2016-10-26] MEDS ORDERED: HALOPERIDOL LACTATE 5 MG/ML AMP IV ONE (01:30)
[2016-10-26] MEDS: LORazepam 2 MG/ML VIAL IV PUSH PRN (02:52)
[2016-10-26 04:00] VITALS: BP 143/88; PULSE 75; RESP 20; TEMP 99; O2SAT 98
[2016-10-26] MEDS: PIPERACIL-TAZO 4.5 GM PREMIX 100 ML IV SCH ×4 (05:13→21:49)
[2016-10-26] MEDS: VANCOMYCIN 1,500 MG/NS 500 ML IV SCH ×4 (06:04→17:55)
[2016-10-26 06:42] LABS: BICARBONATE 23.4 MEQ/L (21.0-32.0)
[2016-10-26 06:51] LABS: POTASSIUM 2.9 MEQ/L (3.5-5.1)
[2016-10-26] MEDS ORDERED: POTASSIUM CHLORIDE 10 MEQ CONTROLLED RELEASE TAB PO ONE ×2 (07:00→18:15)
[2016-10-26 08:00] VITALS: BP 151/91; PULSE 82; PULSE 84; RESP 18; TEMP 99.7; O2SAT 100
[2016-10-26] MEDS ORDERED: POTASSIUM CHLORIDE 20 MEQ CONTROLLED RELEASE TAB PO SCH (09:00)
[2016-10-26] MEDS: LEVOFLOXACIN 750 MG PREMIX INJ 150 ML IV SCH (09:11)
[2016-10-26] MEDS: HEPARIN SODIUM - SQ 10,000 UNITS/ML VIAL SQ SCH ×2 (09:12→21:50)
[2016-10-26] MEDS: LISINOPRIL 5 MG TAB PO SCH (09:12)
[2016-10-26] MEDS: LACTOBACILLUS ACIDOPHILUS TAB PO SCH ×2 (09:12→21:50)
[2016-10-26] MEDS: BUMETANIDE INJ 1 MG/4 ML VIAL IV PUSH SCH (09:12)
[2016-10-26] MEDS: HALOPERIDOL 0.5 MG TAB PO SCH ×2 (09:12→21:50)
[2016-10-26 12:00] VITALS: BP 148/93; PULSE 81; RESP 18; TEMP 99.8; O2SAT 96
[2016-10-26] MEDS: HYDROmorphone HCL PF 1 MG/ML VIAL IV PUSH PRN (13:20)
[2016-10-26 16:00] VITALS: BP 151/94; PULSE 85; RESP 18; TEMP 98.1; O2SAT 98
--- NOTE | 2016-10-26 18:14 | HHI.PR ---
Subjective Remarks The patient is anxious but denies shortness of breath or cough. He would like to go home tomorrow. Objective Vitals Vital Signs Date Time Temp Pulse Resp B/P Pulse Ox O2 Delivery O2 Flow Rate FiO2 10/26/16 16:00 98.1 85 18 151/94 98 10/26/16 12:00 99.8 81 18 148/93 96 10/26/16 08:00 84 10/26/16 08:00 99.7 82 18 151/91 100 10/26/16 04:00 99.0 75 20 143/88 98 10/26/16 00:00 98.1 72 20 147/99 98 10/25/16 20:00 99.0 83 20 164/109 99 10/25/16 20:00 86 I/O 10/25/16 10/25/16 10/25/16 10/26/16 10/26/16 10/26/16 07:00 15:00 23:00 07:00 15:00 23:00 Intake Total 484 ml 240 ml 240 ml 480 ml 270 ml Output Total 1300 ml 1650 ml 201 ml 751 ml 1800 ml Balance -816 ml -1410 ml 39 ml -271 ml -1530 ml Intake Oral 160 ml 240 ml 240 ml 160 ml IV Total 324 ml 320 ml 270 ml Output Urine Total 900 ml 1500 ml 200 ml 750 ml 1800 ml Stool Total 400 ml 150 ml 1 ml 1 ml # Bowel Movements 0 Result Diagram: 10/25/16 0604 10/26/16 0540 Objective Remarks GENERAL: Well-nourished, well-developed middle-aged Af[place] male patient. SKIN: Warm and dry. HEAD: Normocephalic. EYES: No scleral icterus. No injection or drainage. NECK: Supple, trachea midline. No JVD or lymphadenopathy. CARDIOVASCULAR: Regular rate and rhythm without murmurs, gallops, or rubs. RESPIRATORY: Breath sounds equal and clear to auscultation bilaterally. No accessory muscle use. GASTROINTESTINAL: Abdomen soft, non-tender, nondistended. EXTREMITIES: No cyanosis, or edema. NEUROLOGICAL: Awake, alert, and oriented x 3. Paraplegic. Procedures None A/P Problem List: (1) Sepsis ICD Code: A41.9 Status: Acute (2) Pneumonia ICD Code: J18.9 Status: Acute (3) UTI (urinary tract infection) ICD Code: N39.0 Status: Resolved (4) Spinal cord injury, C5-C7 ICD Code: S14.105A Status: Acute (5) Tetraparesis ICD Code: G82.50 Status: Acute (6) Colostomy in place ICD Code: Z93.3 Status: Acute (7) Encephalopathy ICD Code: G93.40 Status: Acute (8) Hypertension ICD Code: I10 Status: Acute Assessment and Plan 1. Sepsis secondary to UTI, pneumonia: Blood cultures sputum culture influenza test stain strep pneumo urine antigen and legionella urine antigen are all negative. Urine culture grew Klebsiella. Patient is clinically stable and on room air. CT chest did show initial pulmonary infiltrates which may have been pulmonary edema. He's been diuresis with Bumex IV daily. He is stable on room air. I discussed the patient with ID/Dr. Pruitt today. Possible discharge home tomorrow on oral antibiotics. 2. Tetraparesis: Chronic, secondary to spinal cord injury in 2013. Continue PT, OT. 3. Acute metabolic Encephalopathy: Resolving. Likely secondary to infection. Head CT and EEG were negative. Monitor mental status. Patient's home medications of baclofen and gabapentin and fentanyl patch were held on admission. He is now wanting to resume the fentanyl patch. I will start him on 25 g as he's been off it for multiple days now. Psychiatry and neurology recommendations appreciated. 4. Lower extremity edema: Resolving. Will DC Bumex. 5. Acute kidney injury: Resolved. 6. DVT prophylaxis: Heparin. 7. Hypertension: Continue lisinopril. Clonidine, Vasotec as needed. 8. Hypokalemia: Supplement potassium. Recheck labs in the morning. 9. Chest pain: Likely secondary to pneumonia. EKG and troponins were negative. Problem Qualifiers (1) Sepsis: Qualified Code: A41.9 - Sepsis, due to unspecified organism (2) Pneumonia: Qualified Code: J18.9 - Pneumonia due to infectious organism, unspecified laterality, unspecified part of lung (3) UTI (urinary tract infection): Qualified Code: N30.00 - Acute cystitis without hematuria Yusra Gray MD Oct 26, 2016 18:14
[2016-10-26] MEDS ORDERED: LORazepam 1 MG TAB PO PRN (18:15)
[2016-10-26] MEDS: NICOTINE 21 MG/24 HR PATCH TD SCH (18:57)
[2016-10-26 20:00] VITALS: BP 169/97; PULSE 85; PULSE 86; RESP 18; TEMP 98.5; O2SAT 100
[2016-10-26] MEDS ORDERED: fentaNYL 25 MCG/HR PATCH TD SCH (20:00)
[2016-10-26] MEDS: BACLOFEN 20 MG TAB PO SCH (21:50)
[2016-10-26] MEDS: POTASSIUM CHLORIDE 20 MEQ CONTROLLED RELEASE TAB PO SCH (21:50)
[2016-10-27] VITALS: BP 151/98; PULSE 78; RESP 18; TEMP 98.7; O2SAT 100
[2016-10-27 04:00] VITALS: BP 141/96; PULSE 77; RESP 16; TEMP 98.8; O2SAT 100
[2016-10-27] MEDS: PIPERACIL-TAZO 4.5 GM PREMIX 100 ML IV SCH ×2 (05:45→11:12)
[2016-10-27] MEDS: HYDROmorphone HCL PF 1 MG/ML VIAL IV PUSH PRN (05:51)
[2016-10-27 06:27] LABS: POTASSIUM 3.4 MEQ/L (3.5-5.1)
[2016-10-27 06:33] LABS: MAGNESIUM 1.9 MG/DL (1.5-2.5)
[2016-10-27] MEDS: VANCOMYCIN 1,500 MG/NS 500 ML IV SCH ×2 (06:54)
[2016-10-27 08:00] VITALS: BP 145/88; PULSE 76; RESP 17; TEMP 98.3; O2SAT 97
[2016-10-27] MEDS ORDERED: REMOVE OLD NICODERM (NICOTINE) PATCH TD SCH (09:00)
[2016-10-27] MEDS: NICOTINE 21 MG/24 HR PATCH TD SCH (09:00)
[2016-10-27] MEDS: LEVOFLOXACIN 750 MG PREMIX INJ 150 ML IV SCH (11:09)
[2016-10-27] MEDS: POTASSIUM CHLORIDE 20 MEQ CONTROLLED RELEASE TAB PO SCH (11:11)
[2016-10-27] MEDS: LACTOBACILLUS ACIDOPHILUS TAB PO SCH (11:11)
[2016-10-27] MEDS: LISINOPRIL 5 MG TAB PO SCH (11:11)
[2016-10-27] MEDS: HEPARIN SODIUM - SQ 10,000 UNITS/ML VIAL SQ SCH (11:11)
[2016-10-27] MEDS: HALOPERIDOL 0.5 MG TAB PO SCH (11:11)
[2016-10-27] MEDS: BACLOFEN 20 MG TAB PO SCH (11:11)
[2016-10-27] MEDS: BUMETANIDE INJ 1 MG/4 ML VIAL IV PUSH SCH (11:12)
[2016-10-27] MEDS ORDERED: FENT25T TD (11:57)
[2016-10-27] MEDS ORDERED: LEVA750T PO (11:57)
[2016-10-27 12:00] VITALS: BP 140/89; PULSE 79; RESP 18; TEMP 98.5; O2SAT 98
[2016-10-27] MEDS ORDERED: LYRI50CA PO (12:02)
[2016-10-27] MEDS ORDERED: NEUR300C PO (12:02)
--- NOTE | 2016-10-27 12:06 | HHI.DS ---
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 In the ER he was found have evidence of urinary tract infection and sepsis with fever and leukocytosis. Chest x-ray and chest CT were indicative of either a viable pneumonitis or possibly pulmonary edema. The patient was also noted to have edema of his lower extremities. At baseline the patient is alert and oriented and takes care of all of his knees according to the mother. He follows with physiatry Dr. Parr and is on the maximum dose of Lyrica, Neurontin. Also was on a fentanyl 100 g patch. CBC/BMP: 10/25/16 0604 10/27/16 0555 Significant Findings Laboratory Tests Test 10/25/16 10/26/16 10/27/16 06:04 05:40 05:55 Red Blood Count 4.16 MIL/MM3 (4.50-5.90) Hemoglobin 12.3 GM/DL (13.0-17.0) Hematocrit 35.9 % (39.0-51.0) Platelet Count 147 TH/MM3 (150-450) Monocytes (%) (Auto) 8.8 % (0.0-8.0) Potassium Level 3.4 MEQ/L 2.9 MEQ/L 3.4 MEQ/L (3.5-5.1) (3.5-5.1) (3.5-5.1) Chloride Level 110 MEQ/L 108 MEQ/L (98-107) (98-107) Calcium Level 8.2 MG/DL 8.0 MG/DL 7.9 MG/DL (8.5-10.1) (8.5-10.1) (8.5-10.1) Vancomycin Level Trough 16.2 MCG/ML (5.0-10.0) Imaging Last Impressions Chest CT 10/24/16 0000 Signed Impressions: Service Date/Time: Monday, October 24, 2016 15:43 - CONCLUSION: 1. Extensive acute alveolar infiltrates of both lungs, nonspecific but presumably infectious or inflammatory. If the patient is immunocompromised, PCP pneumonia would be in the differential. Pulmonary hemorrhage or heterogeneous pulmonary edema is also conceivable. 2. Mildly enlarged mediastinal and hilar lymph nodes , presumably reactive. 3. Small bilateral pleural effusions. 4. Mild panchamber enlargement of the heart. Coronary artery calcification noted. Triston Olsen MD Chest X-Ray 10/22/16 0000 Signed Impressions: Service Date/Time: September 13:37 - CONCLUSION: Diffuse bilateral airspace consolidation that has significantly increased from the prior study from 2 days ago. Triston Shepard MD Head CT 10/20/16 0531 Signed Impressions: Service Date/Time: Thursday, October 20, 2016 06:49 - CONCLUSION: Negative noncontrast head CT. Triston Olsen MD PE at Discharge GENERAL: Well-nourished, well-developed middle-aged Afro-[place] male patient. SKIN: Warm and dry. HEAD: Normocephalic. EYES: No scleral icterus. No injection or drainage. NECK: Supple, trachea midline. No JVD or lymphadenopathy. CARDIOVASCULAR: Regular rate and rhythm without murmurs, gallops, or rubs. RESPIRATORY: Breath sounds equal and clear to auscultation bilaterally. No accessory muscle use. GASTROINTESTINAL: Abdomen soft, non-tender, nondistended. EXTREMITIES: No cyanosis, or edema. NEUROLOGICAL: Awake, alert, and oriented x 3. Paraplegic. Hospital Course The patient was admitted to the hospital and treated presumptively for pneumonia , and UTI. He was diuresed. Neurology and psychiatry were consulted for the altered mental status. It was thought likely that the patient had acute metabolic encephalopathy. Mental status returned to baseline. Head CT and EEG were negative. He was placed on Haldol during his hospitalization. The patient was stable on room air. I discussed his care with Dr. Pruitt infectious disease today and she recommended continuing Levaquin by mouth for 2 more weeks. I also discussed his care with his physiatry was Dr. Parr. As the patient has been off the Neurontin and Lyrica we will resume at lower doses as well as resuming the condyle patch at a lower dose. The patient will follow- up with Dr. Parr within the next week. Additionally an HIV test was ordered due to the appearance of the chest CT however those results are pending at discharge and the patient will follow-up with Dr. Parr for those results. Pt Condition on Discharge: Stable Discharge Disposition: Discharge Home Discharge Time: > 30 minutes Discharge Instructions DIET: Follow Instructions for: As Tolerated, No Restrictions Speech Therapy-Diet Recommends: Regular Activities you can perform: Regular-No Restrictions New Medications: Furosemide (Lasix) 40 Mg Tab 40 MG PO DAILY edema #30 Ref 0 TAB Gabapentin (Neurontin) 300 Mg Cap 300 MG PO TID neuropathy #90 Ref 0 CAP Levofloxacin (Levaquin) 750 Mg Tab 750 MG PO DAILY Infection #7 Ref 0 TAB Pregabalin (Lyrica) 50 Mg Cap 50 MG PO TID neuropathy #90 Ref 0 CAP Fentanyl Patch 72 HR (Duragesic Patch 72 HR) 25 Mcg/Hr Patch 1 PATCH TD Q3D Pain Management #3 PATCH Potassium Chloride Microencaps (Potassium Chloride Microencaps) 20 Meq Tab 20 MEQ PO Q12HR Electrolyte Replacement #60 TAB Continued Medications: Baclofen (Baclofen) 20 Mg Tab 20 MG PO QID Muscle Spasm #120 Ref 0 TAB Discontinued Medications: Fentanyl Patch 72 HR (Fentanyl Patch 72 HR) 100 Mcg/Hr Patch 100 MCG T-DERMAL Q72H Remove old patch when new one placed. Pain Management #10 Ref 0 PATCH Gabapentin (Gabapentin) 600 Mg Tab 1200 MG PO TID #180 Ref 0 TAB Pregabalin (Lyrica) 200 Mg Cap 200 MG PO TID #90 Ref 3 CAP Yusra Gray MD Oct 27, 2016 12:06
[2016-10-27] MEDS ORDERED: FURO1TAB60 PO (12:24)
[2016-10-27] MEDS ORDERED: POTA20TA5 PO (12:24)
--- NOTE | 2016-10-27 12:33 | HHI.IDPN ---
Subjective Subjective Remarks pt feels good no SOB, no cough CT chest with atypical PNA REports last HIV test around 8 yrs ago (negative) afebrile x 3 days MS back to normal Antibiotics vancomycin zosyn levaquine Allergies: Coded Allergies: Morphine (Verified Allergy, Unknown, Confusion, 10/20/16) PT DENIES ALLERGY TO THIS MEDICATION 02-04-16 Uncoded Allergies: morphi (Adverse Reaction, Unknown, Confusion, 06/21/14) Objective . Vital Signs Date Time Temp Pulse Resp B/P Pulse Ox O2 Delivery O2 Flow Rate FiO2 10/27/16 12:00 98.5 79 18 140/89 98 10/27/16 08:00 98.3 76 17 145/88 97 10/27/16 04:00 98.8 77 16 141/96 100 10/27/16 00:00 98.7 78 18 151/98 100 10/26/16 20:00 86 10/26/16 20:00 98.5 85 18 169/97 100 10/26/16 16:00 98.1 85 18 151/94 98 10/26/16 10/26/16 10/27/16 15:00 23:00 07:00 Intake Total 270 ml 480 ml 480 ml Output Total 1800 ml 475 ml 225 ml Balance -1530 ml 5 ml 255 ml Intake Oral 480 ml 480 ml IV Total 270 ml Output Urine Total 1800 ml 475 ml 225 ml # Bowel Movements 0 1 . Laboratory Tests Test 10/26/16 10/27/16 05:40 05:55 Sodium Level 143 MEQ/L 141 MEQ/L Potassium Level 2.9 MEQ/L 3.4 MEQ/L Chloride Level 108 MEQ/L 107 MEQ/L Carbon Dioxide Level 23.4 MEQ/L 22.0 MEQ/L Anion Gap 12 MEQ/L 12 MEQ/L Blood Urea Nitrogen 12 MG/DL 10 MG/DL Creatinine 0.77 MG/DL 0.71 MG/DL Estimat Glomerular Filtration 131 ML/MIN 144 ML/MIN Rate Random Glucose 98 MG/DL 85 MG/DL Calcium Level 8.0 MG/DL 7.9 MG/DL Magnesium Level 1.9 MG/DL Imaging Last Impressions Chest CT 10/24/16 0000 Signed Impressions: Service Date/Time: Monday, October 24, 2016 15:43 - CONCLUSION: 1. Extensive acute alveolar infiltrates of both lungs, nonspecific but presumably infectious or inflammatory. If the patient is immunocompromised, PCP pneumonia would be in the differential. Pulmonary hemorrhage or heterogeneous pulmonary edema is also conceivable. 2. Mildly enlarged mediastinal and hilar lymph nodes , presumably reactive. 3. Small bilateral pleural effusions. 4. Mild panchamber enlargement of the heart. Coronary artery calcification noted. Triston Olsen MD Chest X-Ray 10/22/16 0000 Signed Impressions: Service Date/Time: September 13:37 - CONCLUSION: Diffuse bilateral airspace consolidation that has significantly increased from the prior study from 2 days ago. Triston Shepard MD Head CT 10/20/16 0531 Signed Impressions: Service Date/Time: Thursday, October 20, 2016 06:49 - CONCLUSION: Negative noncontrast head CT. Triston Olsen MD Physical Exam CONSTITUTIONAL/GENERAL: This is an adequately nourished patient, in mild resp distress. SKIN: No jaundice, rashes, or lesions. Ecchymoses on upper extremities. No wounds seen anteriorly. Skin temperature appropriate. Not diaphoretic. EYES: Pupils equal and round and reactive. No scleral icterus. No injection or drainage. Fundi not examined. ENT: Oral mucosae without visible erythema, exudates, masses, or lesions. Poor dentition CARDIOVASCULAR: Regular rate and rhythm without murmurs, gallops, or rubs. RESPIRATORY/CHEST: Symmetric, unlabored respirations. Clear to auscultation. GASTROINTESTINAL: Abdomen soft, non-tender, nondistended. No hepato-splenomegaly , or palpable masses. GENITOURINARY: Without palpable bladder distension. Norman catheter in place with clear yellow urine MUSCULOSKELETAL: Extremities without clubbing, cyanosis, or edema. . No mottling or clubbing. Contracted hands Muscle bulk loss LYMPHATICS: No palpable cervical or supraclavicular adenopathy. NEUROLOGICAL: Awake and alert. Not confused. Normal speech appropriate Follows commands. Incoherent speech Incomplete tetraplegia (baseline) Moves proximal BUE. 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
[2016-10-29] MEDS ORDERED: REMOVE OLD PATCH TD SCH (20:00)
[2016-11-25] MEDS ORDERED: LYRI50CA PO (14:09)
[2016-11-25] MEDS ORDERED: FENT100D T-DERMAL (14:09)
[2016-12-02] MEDS ORDERED: BACL20TA PO (11:28)
[2016-12-07] MEDS ORDERED: BACL20TA PO (12:40)
[2016-12-23] MEDS ORDERED: FENT100D T-DERMAL (14:51)
[2016-12-23] MEDS ORDERED: LYRI100C PO (14:52)
[2016-12-23] MEDS ORDERED: HYDR-3535 PO (14:52)
[2016-12-29] MEDS ORDERED: LYRI200C PO (15:32)
[2017-01-20] MEDS ORDERED: ZANA4CAP PO (12:36)
[2017-01-27] MEDS ORDERED: FENT100D T-DERMAL (12:55)
[2017-01-27] MEDS ORDERED: HYDR-3535 PO (12:55)
[2017-02-24] MEDS ORDERED: FENT100D T-DERMAL (14:30)
[2017-02-24] MEDS ORDERED: HYDR-3535 PO (14:30)
[2017-02-24] MEDS ORDERED: AMIT50TA3 PO (14:34)
[2017-03-31] MEDS ORDERED: FENT100D T-DERMAL (13:32)
[2017-03-31] MEDS ORDERED: HYDR-3535 PO (13:32)
== END 2016-10-27 14:58 | disposition home or self-care (01) | DRG 871 ==
LOC: PHED 05:28 → PHEDA 07:29 → PH3B 08:23
PROVIDERS: ADMIT Family Medicine; ATTEND Family Medicine
DX: A41.50 Gram-negative sepsis, unspecified (principal); J18.9 Pneumonia, unspecified organism; G82.52 Quadriplegia, C1-C4 incomplete; G93.41 Metabolic encephalopathy; N17.9 Acute kidney failure, unspecified; E86.0 Dehydration; N30.00 Acute cystitis without hematuria; R44.0 Auditory hallucinations; F06.8 Other specified mental disorders due to known physiological condition; R60.0 Localized edema; N31.9 Neuromuscular dysfunction of bladder, unspecified; R44.1 Visual hallucinations; I10 Essential (primary) hypertension; E87.6 Hypokalemia; F17.210 Nicotine dependence, cigarettes, uncomplicated; Z88.5 Allergy status to narcotic agent; Z93.3 Colostomy status
CPT/HCPCS: 51702; 70450; 71010; 71260; 80048; 80053; 80202; 80301; 81001; 82140; 82550; 82552; 83605; 83690; 83735; 84100; 84484; 85025; 85610; 85730; 86703; 87040; 87077; 87086; 87186; 87449; 87804; 93005; 95819; 96365; 96367; 96375; G0479; J1170; J1630; J1644; J1956; J2060; J2543; J3370; J3480; J7030; J7040; J7050; Q9967

== ENCOUNTER 2016-10-29 14:56 | Inpatient (IN) | payer MEDICARE, MEDICAID ==
[~2016-10-29] VITALS: Ht 180.3 cm; Wt 99.7 kg
[2016-10-29] VITALS (17 sets, daily range): BP systolic 74–176; BP diastolic 48–111; PULSE 63–100; RESP 10–18; TEMP 95–96.7; O2SAT 93–100
[~2016-10-29 14:56] MED LIST changes: -FENT100D T-DERMAL; +FENT25T TD; +FURO1TAB60 PO; -GABA600T PO; +LEVA750T PO; -LYRI200C PO; +LYRI50CA PO; +NEUR300C PO; +POTA20TA5 PO
[2016-10-29] MEDS ORDERED: SODIUM CHLOR 0.9% 1000 ML INJ 1,000 ML IV SCH (15:13)
[2016-10-29] MEDS ORDERED: NALOXONE HCL 2 MG/2 ML VIAL IV ONE (15:15)
[2016-10-29] MEDS ORDERED: SODIUM CHLORIDE 0.9% FLUSH 5 ML FLUSH IVF PRN (15:15)
[2016-10-29 15:49] LABS: AUTOMATED NEUTROPHIL # 8.7 TH/MM3 (1.8-7.7); BASOPHIL # 0.1 TH/MM3 (0-0.2); BASOPHIL % 0.7 % (0.0-2.0); EOSINOPHIL # 0.1 TH/MM3 (0-0.4); EOSINOPHIL % 0.6 % (0.0-4.0); HEMATOCRIT 38.6 % (39.0-51.0); HEMO FLAGS DIFF FINAL; LYMPH % 12.9 % (9.0-44.0); LYMPHOCYTE # 1.4 TH/MM3 (1.0-4.8); MEAN CELL VOLUME 86.2 FL (80.0-100.0); MEAN CORPUSCULAR HGB CONC 33.6 % (32.0-36.0); MONO % 8.1 % (0.0-8.0); NEUT % 77.7 % (16.0-70.0); PLATELET COUNT 291 TH/MM3 (150-450); RED BLOOD COUNT 4.48 MIL/MM3 (4.50-5.90); RED CELL DISTRIBUTION WIDTH 15.1 % (11.6-17.2); WHITE BLOOD COUNT 11.1 TH/MM3 (4.0-11.0)
--- NOTE | 2016-10-29 15:50 | RADRPT ---
EXAM DATE/TIME: 10/29/2016 15:24 [facility] COMPARISON: CHEST SINGLE AP, October 22, 2016, 13:37. INDICATIONS : Syncope. MEDICAL HISTORY : None. SURGICAL HISTORY : None. ENCOUNTER: Initial ACUITY: 1 day PAIN SCORE: Non-responsive. LOCATION: Bilateral chest FINDINGS: A single view of the chest demonstrates the lungs to be symmetrically aerated without evidence of mas s, infiltrate or effusion. The cardiomediastinal contours are unremarkable. Osseous structures are intact. CONCLUSION: No acute disease. Triston De Luna MD on October 29, 2016 at 15:48 Board Certified Radiologist. This report was verified electronically.
[2016-10-29 15:52] LABS: BLOOD GAS BASE EXCESS -6.9 mmol/L (-2-2); BLOOD GAS CARBOXYHEMOGLOBIN 3.1 % (0-4); BLOOD GAS HCO3 18 mmol/L (22-26); BLOOD GAS METHEMOGLOBIN 1.9 % (0-2); BLOOD GAS O2 HGB SATURATION 93 % (90-100); BLOOD GAS OXYGEN CONTENT 15.7 Vol % (12.0-20.0); BLOOD GAS PCO2 34 mmHg (38-42); BLOOD GAS PO2 112 mmHG (61-120); BLOOD GAS TOTAL HGB 11.9 G/DL (12.0-16.0); CRITICAL VALUE NO; DRAW SITE RT BRACHIAL; FIO2 21 %; NUMBER OF ARTERIAL PUNCTURES 1; OXYGEN DEVICE ROOM AIR; STAT YES; TEMP CORR TO 98.6
[2016-10-29 16:05] LABS: AMPHETAMINE, URINE NEG (NEG); BARBITURATES, URINE NEG (NEG); COCAINE, URINE NEG (NEG)
--- NOTE | 2016-10-29 16:07 | PD ---
HPI Chief Complaint: Altered Mental Status Time Seen by Provider: 15:13 Travel History International Travel<30 days: No Contact w/Intl Traveler<30days: No Traveled to known affect area: No History of Present Illness HPI 50-year-old male with history of paraplegia from a fall, seen recently for sepsis, presents to the ER today because [place] was [place] un[place], was given a small dose of Narcan by EMS without significant improvement, still lethargic. As they were moving him to a bed, patient was again unresponsive, pulseless could not be found, and CPR was initiated on him. After 1 minute of CPR and bag valve mask initiation, a reevaluation of rhythm and pulse check was done when I arrived in the room and it shows an organized rhythm, patient had pulses, and regain consciousness. Blood pressure was 75/ 47. IV fluids were initiated and workup initiated. Modifying Factors: None Associated Signs & Symptoms: Unresponsive episode, hypotension, PEA Risk Factors: Paraplegic, recent sepsis PFSH Past Medical History Anxiety: No Depression: No Cancer: No Cardiovascular Problems: No Diminished Hearing: No Endocrine: No Gastrointestinal Disorders: No Genitourinary: No Immune Disorder: No Implanted Vascular Access Dvce: No Musculoskeletal: No Neurologic: Yes (c4 c5 fracture, incomplete quad) Psychiatric: No Reproductive: No Respiratory: No Immunizations Current: No Past Surgical History Abdominal Surgery: Yes (COLOSTOMY TO LLQ ) AICD: No Pacemaker: No Other Surgery: Yes Social History Alcohol Use: No Tobacco Use: Yes Substance Use: No Allergies-Medications (Allergen,Severity, Reaction): Coded Allergies: Morphine (Verified Allergy, Unknown, Confusion, 10/20/16) PT DENIES ALLERGY TO THIS MEDICATION 02-04-16 Uncoded Allergies: morphi (Adverse Reaction, Unknown, Confusion, 06/21/14) Reported Meds & Prescriptions Reported Meds & Active Scripts Active Lasix (Furosemide) 40 Mg Tab 40 Mg PO DAILY Potassium Chloride Microencaps 20 Meq Tab 20 Meq PO Q12HR Lyrica (Pregabalin) 50 Mg Cap 50 Mg PO TID Neurontin (Gabapentin) 300 Mg Cap 300 Mg PO TID Levaquin (Levofloxacin) 750 Mg Tab 750 Mg PO DAILY Duragesic Patch 72 HR (Fentanyl) 25 Mcg/Hr Patch 1 Patch TD Q3D Reported Baclofen 20 Mg Tab 20 Mg PO QID Review of Systems ROS Limitations: Altered Mental Status, Unresponsive Physical Exam Narrative GENERAL: Well-nourished, well-developed lethargic middle age -[place] male patient who is poorly responsive to sternal rub, airway intact, gag reflex intact. Fentanyl patch was noted on the right thigh. SKIN: Warm and dry. HEAD: Normocephalic. EYES: No scleral icterus. No injection or drainage. Pupils are pinpoint, round , poorly responsive to light bilaterally. NECK: Supple, trachea midline. CARDIOVASCULAR: Regular rate and rhythm without murmurs, gallops, or rubs. RESPIRATORY: Breath sounds equal bilaterally. No accessory muscle use. GASTROINTESTINAL: Abdomen soft, non-tender, nondistended. MUSCULOSKELETAL: No cyanosis, or edema. BACK: Nontender without obvious deformity. No CVA tenderness. Data Data Last Documented VS Vital Signs Date Time Temp Pulse Resp B/P Pulse Ox O2 Delivery O2 Flow Rate FiO2 10/29/16 15:20 97 Room Air 10/29/16 15:07 96.7 76 10 74/48 Orders Electrocardiogram (10/29/16 15:13) Alcohol (Ethanol) (10/29/16 15:13) Ammonia (10/29/16 15:13) Complete Blood Count With Diff (10/29/16 15:13) Comprehensive Metabolic Panel (10/29/16 15:13) Creatine Kinase (Cpk) (10/29/16 15:13) Drug Screen, Random Urine (10/29/16 15:13) Prothrombin Time / Inr (Pt) (10/29/16 15:13) Act Partial Throm Time (Ptt) (10/29/16 15:13) Troponin I (10/29/16 15:13) Thyroid Stimulating Hormone (10/29/16 15:13) Arterial Blood Gas (Abg) (10/29/16 15:13) Chest, Single Ap (10/29/16 15:13) Ct Brain W/O Iv Contrast(Rout) (10/29/16 15:13) Blood Glucose (10/29/16 15:13) Ecg Monitoring (10/29/16 15:13) Iv Access Insert/Monitor (10/29/16 15:13) Oximetry (10/29/16 15:13) Urinary Catheter Insert/Apply (10/29/16 15:13) Naloxone Inj (Narcan Inj) (10/29/16 15:15) Sodium Chloride 0.9% Flush (Ns Flush) (10/29/16 15:15) Sodium Chlor 0.9% 1000 Ml Inj (Ns 1000 M (10/29/16 15:13) CKMB (10/29/16 15:15) CKMB% (10/29/16 15:15) Sodium Chlor 0.9% 1000 Ml Inj (Ns 1000 M (10/29/16 16:45) Admit Order (Ed Use Only) (10/29/16 18:19) Labs Laboratory Tests Test 10/29/16 10/29/16 10/29/16 15:15 15:20 15:41 White Blood Count 11.1 TH/MM3 Red Blood Count 4.48 MIL/MM3 Hemoglobin 13.0 GM/DL Hematocrit 38.6 % Mean Corpuscular Volume 86.2 FL Mean Corpuscular Hemoglobin 29.0 PG Mean Corpuscular Hemoglobin 33.6 % Concent Red Cell Distribution Width 15.1 % Platelet Count 291 TH/MM3 Mean Platelet Volume 9.0 FL Neutrophils (%) (Auto) 77.7 % Lymphocytes (%) (Auto) 12.9 % Monocytes (%) (Auto) 8.1 % Eosinophils (%) (Auto) 0.6 % Basophils (%) (Auto) 0.7 % Neutrophils # (Auto) 8.7 TH/MM3 Lymphocytes # (Auto) 1.4 TH/MM3 Monocytes # (Auto) 0.9 TH/MM3 Eosinophils # (Auto) 0.1 TH/MM3 Basophils # (Auto) 0.1 TH/MM3 CBC Comment DIFF FINAL Differential Comment Prothrombin Time 13.5 SEC Prothromb Time International 1.2 RATIO Ratio Activated Partial 30.6 SEC Thromboplast Time Sodium Level 139 MEQ/L Potassium Level 3.2 MEQ/L Chloride Level 103 MEQ/L Carbon Dioxide Level 20.7 MEQ/L Anion Gap 15 MEQ/L Blood Urea Nitrogen 29 MG/DL Creatinine 4.63 MG/DL Estimat Glomerular Filtration 16 ML/MIN Rate Random Glucose 109 MG/DL Calcium Level 8.3 MG/DL Total Bilirubin 0.4 MG/DL Aspartate Amino Transf 24 U/L (AST/SGOT) Alanine Aminotransferase 26 U/L (ALT/SGPT) Alkaline Phosphatase 69 U/L Total Creatine Kinase 929 U/L Creatine Kinase MB 10.9 NG/ML Creatine Kinase MB % 1.2 % Troponin I 0.20 NG/ML Total Protein 7.1 GM/DL Albumin 3.1 GM/DL Thyroid Stimulating Hormone 2.110 uIU/ML 3rd Gen Ethyl Alcohol Level LESS THAN 3 MG/DL Urine Opiates Screen NEG Urine Barbiturates Screen NEG Urine Amphetamines Screen NEG Urine Benzodiazepines Screen NEG Urine Cocaine Screen NEG Urine Cannabinoids Screen NEG Blood Gas Puncture Site RT BRACHIAL Blood Gas Patient Temperature 98.6 Blood Gas HCO3 18 mmol/L Blood Gas Base Excess -6.9 mmol/L Blood Gas Oxygen Saturation 93 % Arterial Blood pH 7.34 Arterial Blood Partial 34 mmHg Pressure CO2 Arterial Blood Partial 112 mmHG Pressure O2 Arterial Blood Oxygen Content 15.7 Vol % Arterial Blood 3.1 % Carboxyhemoglobin Arterial Blood Methemoglobin 1.9 % Blood Gas Hemoglobin 11.9 G/DL Oxygen Delivery Device ROOM AIR Blood Gas Inspired Oxygen 21 % MDM Medical Decision Making Medical Screen Exam Complete: Yes Emergency Medical Condition: Yes Medical Record Reviewed: Yes Interpretation(s) Laboratory Tests Test 10/29/16 10/29/16 15:15 15:41 White Blood Count 11.1 TH/MM3 (4.0-11.0) Red Blood Count 4.48 MIL/MM3 (4.50-5.90) Hematocrit 38.6 % (39.0-51.0) Neutrophils (%) (Auto) 77.7 % (16.0-70.0) Monocytes (%) (Auto) 8.1 % (0.0-8.0) Neutrophils # (Auto) 8.7 TH/MM3 (1.8-7.7) Prothrombin Time 13.5 SEC (9.8-11.6) Activated Partial 30.6 SEC Thromboplast Time (24.3-30.1) Potassium Level 3.2 MEQ/L (3.5-5.1) Carbon Dioxide Level 20.7 MEQ/L (21.0-32.0) Blood Urea Nitrogen 29 MG/DL (7-18) Creatinine 4.63 MG/DL (0.60-1.30) Estimat Glomerular Filtration 16 ML/MIN (>89) Rate Random Glucose 109 MG/DL (74-106) Calcium Level 8.3 MG/DL (8.5-10.1) Total Creatine Kinase 929 U/L (39-308) Creatine Kinase MB 10.9 NG/ML (0.5-3.6) Troponin I 0.20 NG/ML (0.02-0.05) Albumin 3.1 GM/DL (3.4-5.0) Blood Gas HCO3 18 mmol/L (22-26) Blood Gas Base Excess -6.9 mmol/L (-2-2) Arterial Blood pH 7.34 (7.380-7.420) Arterial Blood Partial 34 mmHg (38-42) Pressure CO2 Blood Gas Hemoglobin 11.9 G/DL (12.0-16.0) Last [address] 10/29/161512 Signed Impressions: Service Date/Time: October 17:52 - CONCLUSION: No acute intracranial abnormality demonstrated. Triston Olsen MD Chest X-Ray 10/29/161512 Signed Impressions: Service Date/Time: October 15:24 - CONCLUSION: No acute disease. Triston De Luna MD Differential Diagnosis Sepsis versus opiate overdose versus intoxication versus metabolic issues versus acute intracranial processes Narrative Course CT of the brain did not show any signs of acute intracranial processes. Lab work did not show significant metabolic issues. His U tox is negative. Alcohol levels were negative. At this point, I suspect that he may have had an opiate overdose. He was given Narcan initially but did not have significant response. At this point, patient had been given IV fluids and his vital signs are stable in the ER. My plan would be to admit him for further observation and evaluation in ICU especially considering his earlier PEA episode. Case was discussed with Dr. Connor who accepted the patient to ICU care. Critical Care Narrative Aggregate critical care time was 35 minutes. Time to perform other separately billable procedures was not included in the critical care time. My time did not include minutes spent treating any other patients simultaneously or on activities that did not directly contribute to the patient's treatment. The services I provided to this patient were to treat and/or prevent clinically significant deterioration that could result in: Respiratory arrest, cardiopulmonary arrest, I provided critical care services requiring my management, as noted below: Chart data review, documentation time, medication orders and management, vital sign assessments/reviewing monitor data, ordering and reviewing lab tests, ordering and interpreting/reviewing x-rays and diagnostic studies, care of the patient and discussion of the patient with the admitting physicians. Diagnosis Primary Impression: ALTERED MENTAL STATUS, UNSPECIFIED Admitting Information Admitting Physician Requests: it Geetha Julio MD Oct 29, 2016 16:07
[2016-10-29 16:10] LABS: ALT (GPT) 26 U/L (12-78); ANION GAP 15 MEQ/L (5-15); AST (GOT) 24 U/L (15-37); BICARBONATE 20.7 MEQ/L (21.0-32.0); BLOOD UREA NITROGEN 29 MG/DL (7-18); CHLORIDE 103 MEQ/L (98-107); GLOMERULAR FILTRATION RATE 16 ML/MIN (>89); POTASSIUM 3.2 MEQ/L (3.5-5.1); SODIUM (NA) 139 MEQ/L (136-145)
[2016-10-29 16:12] LABS: APTT (PATIENT) 30.6 SEC (24.3-30.1); INTERNATIONAL NORMALIZED RATIO 1.2 RATIO; PROTHROMBIN TIME - PATIENT 13.5 SEC (9.8-11.6)
[2016-10-29 16:20] LABS: ALKALINE PHOSPHATASE 69 U/L (45-117); CREATINE KINASE 929 U/L (39-308); TOTAL BILIRUBIN ADULT 0.4 MG/DL (0.2-1.0)
[2016-10-29 16:32] LABS: CKMB 10.9 NG/ML (0.5-3.6)
[2016-10-29] MEDS ORDERED: SODIUM CHLOR 0.9% 1000 ML INJ 1,000 ML IV ONE ×3 (16:45→20:00)
--- NOTE | 2016-10-29 18:09 | RADRPT ---
EXAM DATE/TIME: 10/29/2016 17:52 [facility] COMPARISON: CT BRAIN W/O CONTRAST, October 20, 2016, 6:49. INDICATIONS : Altered mental status. Found unresponsive. RADIATION DOSE: 43.37 CTDIvol (mGy) MEDICAL HISTORY : Deep venous thrombosis. C4/C5 fracture. SURGICAL HISTORY : IVC Filter placement. Colostomy. ENCOUNTER: Initial ACUITY: 1 day PAIN SCALE: Non-responsive LOCATION: cranial TECHNIQUE: Multiple contiguous axial images were obtained of the head. Using automated exposure control and adj ustment of the mA and/or kV according to patient size, radiation dose was kept as low as reasonably a chievable to obtain optimal diagnostic quality images. FINDINGS: CEREBRUM: The ventricles are normal for age. No evidence of midline shift, mass lesion, hemorrhage or acute in farction. No extra-axial fluid collections are seen. POSTERIOR FOSSA: The cerebellum and brainstem are intact. The 4th ventricle is midline. The cerebellopontine angle i s unremarkable. EXTRACRANIAL: The visualized portion of the orbits is intact. SKULL: The calvaria is intact. No evidence of skull fracture. CONCLUSION: No acute intracranial abnormality demonstrated. Triston Olsen MD on October 29, 2016 at 18:06 Board Certified Radiologist. This report was verified electronically.
[2016-10-29] MEDS ORDERED: POTASSIUM PHOSPHATE MONOBASIC 500 MG TAB PO PRN (19:15)
[2016-10-29] MEDS ORDERED: Vancomycin Consult Pharmacy 1 EA XX SCH (19:15)
[2016-10-29] MEDS ORDERED: MAGNESIUM OXIDE 400 MG TAB PO PRN (19:15)
[2016-10-29] MEDS ORDERED: POTASSIUM PHOSPHATE MONOBASIC 500 MG TAB PO/TUBE PRN (19:15)
[2016-10-29] MEDS ORDERED: MAGNESIUM SULFATE INJ 4 GM in SODIUM CHLORIDE 0.9% INJ 92 ML IV PRN (19:15)
[2016-10-29] MEDS ORDERED: SODIUM CHLORIDE 0.9% FLUSH 5 ML FLUSH IV FLUSH PRN ×2 (19:15)
[2016-10-29] MEDS ORDERED: MAGNESIUM SULFATE INJ 2 GM in SODIUM CHLORIDE 0.9% INJ 96 ML IV PRN (19:15)
[2016-10-29] MEDS ORDERED: POTASSIUM PHOSPHATE INJ 30 MMOL in SODIUM CHLOR 0.9% 250 ML INJ 250 ML IV PRN (19:15)
[2016-10-29] MEDS ORDERED: CHLORHEXIDINE GLUCONATE 2 % 1 PACK (2 CLOTHS) TOP PRN (19:15)
[2016-10-29] MEDS ORDERED: SODIUM PHOSPHATE INJ 30 MMOL in SODIUM CHLOR 0.9% 250 ML INJ 240 ML IV PRN (19:15)
[2016-10-29] MEDS ORDERED: POTASSIUM CHLOR 20 MEQ PREMIX 100 ML IV PRN ×2 (19:15)
[2016-10-29] MEDS ORDERED: POTASSIUM CL 40 MEQ/30 ML LIQ UDC PO/TUBE PRN ×2 (19:15)
[2016-10-29] MEDS ORDERED: MISCELLANEOUS NURSING INFORMATION XX SCH (19:15)
[2016-10-29] MEDS ORDERED: POTASSIUM CHLOR 40 MEQ PREMIX 100 ML IV PRN ×2 (19:15)
[2016-10-29] MEDS ORDERED: MAGNESIUM HYDROXIDE SUSP 30 ML CUP PO PRN (20:00)
[2016-10-29] MEDS ORDERED: BISACODYL EC 5 MG TABEC PO PRN (20:00)
[2016-10-29] MEDS ORDERED: ONDANSETRON HCL 4 MG/2 ML VIAL IV PRN (20:00)
[2016-10-29] MEDS ORDERED: RESP: ALBUTEROL 2.5 MG/IPRATROPIUM 0.5 MG NEB (PRN) INH (20:00)
[2016-10-29] MEDS ORDERED: SODIUM BICARBONATE 8.4% INJ 50 ML ONE ×2 (20:00→20:09)
[2016-10-29] MEDS ORDERED: SODIUM BICARBONATE 8.4% INJ 50 MEQ/50 ML SYR IV PUSH ONE (20:00)
[2016-10-29] MEDS ORDERED: HEPARIN SODIUM - SQ 10,000 UNITS/ML VIAL SQ SCH (20:00)
[2016-10-29] MEDS ORDERED: ACETAMINOPHEN 325 MG TAB PO PRN (20:00)
[2016-10-29] MEDS: SODIUM CHLORIDE 0.9% FLUSH 5 ML FLUSH IV FLUSH SCH ×2 (20:58→20:59)
[2016-10-29] MEDS: CEFEPIME INJ 2,000 MG in SODIUM CHLORIDE 0.9% INJ 100 ML IV SCH (20:58)
[2016-10-29] MEDS: DOCUSATE SODIUM 100 MG CAP PO SCH (21:00)
[2016-10-29] MEDS ORDERED: CALCIUM GLUCONATE INJ 2 GM in DEXTROSE 5% IN WATER 100ML INJ 100 ML IV ONE ×2 (21:00)
[2016-10-29] MEDS ORDERED: VANCOMYCIN 1,500 MG/NS 500 ML IV ONE ×2 (21:00)
[2016-10-29] MEDS: LACTATED RINGER'S 1000 ML INJ 1,000 ML IV SCH (21:07)
[2016-10-29 23:00] LABS: INDIRECT BILIRUBIN 0.2 MG/DL (0.0-0.8); TOTAL BILIRUBIN ADULT 0.3 MG/DL (0.2-1.0)
[2016-10-29 23:19] LABS: CKMB 12.2 NG/ML (0.5-3.6)
[2016-10-30] VITALS (16 sets, daily range): BP systolic 96–163; BP diastolic 50–93; PULSE 81–98; RESP 12–39; TEMP 97–100; O2SAT 96–100
--- NOTE | 2016-10-30 00:01 | HHI.HP ---
HPI Service Critical Care Medicine Primary Care Physician Unknown Admission Diagnosis altered mental status/PEA episode/suspected opiate overdose Diagnosis: Travel History International Travel<30 Days: No Contact w/Intl Traveler <30 Da: No Traveled to Known Affected Are: No History of Present Illness 50-year-old male with history of paraplegia from a fall, seen recently for sepsis, presents to the ER today because he was found at the bus stop unresponsive, was given a small dose of Narcan by EMS without significant improvement, still lethargic. As they were moving him to a bed, patient was again unresponsive, pulseless could not be found, and CPR was initiated on him. After 1 minute of CPR and bag valve mask initiation, a reevaluation of rhythm and pulse check was done when I arrived in the room and it shows an organized rhythm, patient had pulses, and regain consciousness. Blood pressure was 75/ 47. IV fluids were initiated and workup initiated. Critical care medicine was consulted for treatment and management. Modifying Factors: None Associated Signs & Symptoms: Unresponsive episode, hypotension, PEA Risk Factors: Paraplegic, recent sepsis History PFSH Past Medical History Anxiety: No Depression: No Cancer: No Cardiovascular Problems: No Diminished Hearing: No Endocrine: No Gastrointestinal Disorders: No Genitourinary: No Immune Disorder: No Implanted Vascular Access Dvce: No Musculoskeletal: No Neurologic: Yes (c4 c5 fracture, incomplete quad) Psychiatric: No Reproductive: No Respiratory: No Immunizations Current: No Past Surgical History Abdominal Surgery: Yes (COLOSTOMY TO LLQ ) AICD: No Pacemaker: No Other Surgery: Yes Social History Alcohol Use: No Tobacco Use: Yes Substance Use: No Allergies-Medications Allergies-Medications (Allergen,Severity, Reaction): Coded Allergies: Morphine (Verified Allergy, Unknown, Confusion, 10/20/16) PT DENIES ALLERGY TO THIS MEDICATION 02-04-16 Uncoded Allergies: morphi (Adverse Reaction, Unknown, Confusion, 06/21/14) Reported Meds & Prescriptions Reported Meds & Active Scripts Active Lasix (Furosemide) 40 Mg Tab 40 Mg PO DAILY Potassium Chloride Microencaps 20 Meq Tab 20 Meq PO Q12HR Lyrica (Pregabalin) 50 Mg Cap 50 Mg PO TID Neurontin (Gabapentin) 300 Mg Cap 300 Mg PO TID Levaquin (Levofloxacin) 750 Mg Tab 750 Mg PO DAILY Duragesic Patch 72 HR (Fentanyl) 25 Mcg/Hr Patch 1 Patch TD Q3D Reported Baclofen 20 Mg Tab 20 Mg PO QID ROS Review of Systems ROS Limitations: Altered Mental Status, Unresponsive Past Family Social History Allergies: Coded Allergies: Morphine (Verified Allergy, Unknown, Confusion, 10/20/16) PT DENIES ALLERGY TO THIS MEDICATION 02-04-16 Uncoded Allergies: morphi (Adverse Reaction, Unknown, Confusion, 06/21/14) Physical Exam Vital Signs Vital Signs Date Time Temp Pulse Resp B/P Pulse Ox O2 Delivery O2 Flow Rate FiO2 10/29/16 22:04 96.1 100 18 137/57 100 Nasal Cannula 2 10/29/16 21:38 95.9 82 16 103/59 100 Nasal Cannula 2 10/29/16 21:01 95.7 79 16 111/57 100 Nasal Cannula 2 10/29/16 20:40 95.0 82 16 112/67 99 Nasal Cannula 2 10/29/16 19:30 80 16 99/68 100 Nasal Cannula 2 10/29/16 18:00 80 13 95/59 96 Room Air 10/29/16 17:30 80 13 102/58 93 Room Air 10/29/16 17:00 63 13 89/50 97 Room Air 10/29/16 16:30 78 12 93/ 97 Room Air 10/29/16 16:20 93/56 10/29/16 16:15 94/53 10/29/16 16:10 102/55 10/29/16 16:05 106/59 10/29/16 16:00 176/111 10/29/16 15:20 97 Room Air 10/29/16 15:15 95 10/29/16 15:07 96.7 76 10 74/48 Physical Exam GENERAL: Critically ill-appearing Yolanda male lying in bed, somnolent response to noxious stimuli. SKIN: Warm and dry. HEAD: Atraumatic. Normocephalic. EYES: Pupils equal and round. No scleral icterus. No injection or drainage. ENT: No nasal bleeding or discharge. Mucous membranes pink and moist. NECK: Trachea midline. No JVD. CARDIOVASCULAR: Normal rate, regular rhythm. RESPIRATORY: No accessory muscle use. Clear to auscultation. Breath sounds equal bilaterally. GASTROINTESTINAL: Abdomen soft, non-tender, nondistended. No guarding. MUSCULOSKELETAL: Extremities without clubbing, cyanosis, or edema. No obvious deformities. NEUROLOGICAL: Somnolent. RASS 0. No gross focal/sensory deficits. Follows commands in all 4 extremities. Laboratory Laboratory Tests Test 10/29/16 10/29/16 10/29/16 10/29/16 15:15 15:20 15:41 22:10 White Blood Count 11.1 Red Blood Count 4.48 Hemoglobin 13.0 Hematocrit 38.6 Mean Corpuscular Volume 86.2 Mean Corpuscular Hemoglobin 29.0 Mean Corpuscular Hemoglobin 33.6 Concent Red Cell Distribution Width 15.1 Platelet Count 291 Mean Platelet Volume 9.0 Neutrophils (%) (Auto) 77.7 Lymphocytes (%) (Auto) 12.9 Monocytes (%) (Auto) 8.1 Eosinophils (%) (Auto) 0.6 Basophils (%) (Auto) 0.7 Neutrophils # (Auto) 8.7 Lymphocytes # (Auto) 1.4 Monocytes # (Auto) 0.9 Eosinophils # (Auto) 0.1 Basophils # (Auto) 0.1 CBC Comment DIFF FINAL Differential Comment Prothrombin Time 13.5 Prothromb Time International 1.2 Ratio Activated Partial 30.6 Thromboplast Time Sodium Level 139 Potassium Level 3.2 Chloride Level 103 Carbon Dioxide Level 20.7 Anion Gap 15 Blood Urea Nitrogen 29 Creatinine 4.63 Estimat Glomerular Filtration 16 Rate Random Glucose 109 Calcium Level 8.3 Total Bilirubin 0.4 Aspartate Amino Transf 24 (AST/SGOT) Alanine Aminotransferase 26 (ALT/SGPT) Alkaline Phosphatase 69 Total Creatine Kinase 929 Creatine Kinase MB 10.9 Creatine Kinase MB % 1.2 Troponin I 0.20 Total Protein 7.1 Albumin 3.1 Thyroid Stimulating Hormone 2.110 3rd Gen Ethyl Alcohol Level LESS THAN 3 Urine Opiates Screen NEG Urine Barbiturates Screen NEG Urine Amphetamines Screen NEG Urine Benzodiazepines Screen NEG Urine Cocaine Screen NEG Urine Cannabinoids Screen NEG Blood Gas Puncture Site RT BRACHIAL Blood Gas Patient Temperature 98.6 Blood Gas HCO3 18 Blood Gas Base Excess -6.9 Blood Gas Oxygen Saturation 93 Arterial Blood pH 7.34 Arterial Blood Partial 34 Pressure CO2 Arterial Blood Partial 112 Pressure O2 Arterial Blood Oxygen Content 15.7 Arterial Blood 3.1 Carboxyhemoglobin Arterial Blood Methemoglobin 1.9 Blood Gas Hemoglobin 11.9 Oxygen Delivery Device ROOM AIR Blood Gas Inspired Oxygen 21 Lactic Acid Level 0.8 Test 10/29/16 22:18 Phosphorus Level 4.9 Total Bilirubin 0.3 Direct Bilirubin 0.1 Indirect Bilirubin 0.2 Aspartate Amino Transf 18 (AST/SGOT) Alanine Aminotransferase 17 (ALT/SGPT) Alkaline Phosphatase 51 Total Creatine Kinase 689 Creatine Kinase MB 12.2 Creatine Kinase MB % 1.8 Troponin I 0.30 Total Protein 5.2 Albumin 2.2 Date/Time Procedure Status Source Growth 10/29/16 19:15 Aerobic Blood Culture Received Blood Peripheral Pending 10/29/16 19:15 Anaerobic Blood Culture Received Blood Peripheral Pending Result Diagram: 10/29/16 1515 10/29/16 1515 Imaging Last [address] 10/29/16 1513 Signed Impressions: Service Date/Time: October 17:52 - CONCLUSION: No acute intracranial abnormality demonstrated. Triston Olsen MD Chest X-Ray 10/29/16 1513 Signed Impressions: Service Date/Time: , October 29, 2016 15:24 - CONCLUSION: No acute disease. Triston De Luna MD Septic Shock Reassessment Skin: Cold, Mottled Peripheral Pulses: Bounding Right Radial Bounding Left Radial Bounding Right Dorsalis Pedis Bounding Left Dorsalis Pedis Assessment and Plan Assessment and Plan Plan by systems: Neurologic: Altered mental statustoxic encephalopathy versus Paraplegia C4-C5 fracture, spinal cord injury 2004 Spasticity -Patient hospitalized 1 week ago with same symptomatology neurological workup negative -CT 10/25/16-no cranial abnormality, repeat CT 10/29/16negative -EEG 10/25/16 unremarkable -Resume baclofen when clinically indicated -Patient on fentanyl patch, patch removed -Obtain lumbar puncture-CSF study, INR 1.2 -Narcan infusion 10/29, patient slightly more alert. -Follow up ammonia level -Neurology consult-Dr. Shafer Respiratory: -No acute issues -Bronchodilators when necessary Cardiovascular: PEA Arrest Hypotension -Repeat EKG-normal sinus rhythm -Hypotension resolved with volume resuscitation -The telemetrynormal sinus rhythm Renal: EZEQUIEL secondary to hypotension -Monitor BMP-creatinine 4.63 -- Strict I/Os FEN/GI: -Obtain nothing by mouth -IV fluids normal saline 84cc/hr Heme/ID: Septic shock Endocrine: -Euglycemic -Glucose monitoring per ICU protocol -- SSI Prophylaxis: GI Prophylaxis Protonix DVT Prophylaxis -- SCDs Heparin on hold for LP Lines: Peripheral IVs. Central line if indicated Dispo: This patient remains critically ill with one or more organ systems which are or may become a threat to life. I have spent in excess of 60 minutes discontinuously in the care and management of this patient. This time is exclusive of procedures, and includes, but is not limited to, evaluation of the patient, review of the medical record, discussions with family, consultants, nursing staff, or respiratory therapy, and documentation in the medical record. Code Status Full code Discussed Condition With ED RN at bedside Sanjana Connor MD Oct 30, 2016 00:01
[2016-10-30] MEDS: CHLORHEXIDINE GLUCONATE 2 % 1 PACK (2 CLOTHS) TOP SCH (03:00)
[2016-10-30 04:32] LABS: APTT (PATIENT) 33.4 SEC (24.3-30.1); AUTOMATED NEUTROPHIL # 7.3 TH/MM3 (1.8-7.7); BASOPHIL % 0.5 % (0.0-2.0); EOSINOPHIL # 0.1 TH/MM3 (0-0.4); EOSINOPHIL % 1.3 % (0.0-4.0); HEMATOCRIT 34.6 % (39.0-51.0); HEMO FLAGS DIFF FINAL; INTERNATIONAL NORMALIZED RATIO 1.2 RATIO; LYMPH % 12.7 % (9.0-44.0); LYMPHOCYTE # 1.2 TH/MM3 (1.0-4.8); MEAN CELL VOLUME 86.4 FL (80.0-100.0); MEAN CORPUSCULAR HEMOGLOBIN 28.7 PG (27.0-34.0); MEAN CORPUSCULAR HGB CONC 33.2 % (32.0-36.0); MONO % 8.6 % (0.0-8.0); NEUT % 76.9 % (16.0-70.0); PLATELET COUNT 246 TH/MM3 (150-450); WHITE BLOOD COUNT 9.5 TH/MM3 (4.0-11.0)
[2016-10-30] MEDS: NALOXONE INJ 4 MG in DEXTROSE 5% IN WATER INJ 246 ML IV SCH ×4 (04:32→17:20)
[2016-10-30 04:49] LABS: MAGNESIUM 1.9 MG/DL (1.5-2.5)
[2016-10-30] MEDS: CEFEPIME INJ 2,000 MG in SODIUM CHLORIDE 0.9% INJ 100 ML IV SCH ×2 (05:51→18:22)
[2016-10-30] MEDS: SODIUM CHLORIDE 0.9% FLUSH 5 ML FLUSH IV FLUSH SCH ×4 (09:00→21:56)
[2016-10-30] MEDS: DOCUSATE SODIUM 100 MG CAP PO SCH ×2 (09:00→21:00)
[2016-10-30 09:20] LABS: BICARBONATE 19.5 MEQ/L (21.0-32.0); POTASSIUM 3.3 MEQ/L (3.5-5.1)
[2016-10-30 09:47] LABS: CALCIUM-PROTEIN CORRECTED 8.1 MG/DL (8.5-10.1)
[2016-10-30] MEDS: PANTOPRAZOLE SODIUM 40 MG VIAL IV SCH (10:03)
[2016-10-30] MEDS: LACTATED RINGER'S 1000 ML INJ 1,000 ML IV SCH ×2 (10:07→21:56)
[2016-10-30 10:16] LABS: CKMB 10.3 NG/ML (0.5-3.6)
[2016-10-30 11:10] LABS: GROSS BLOOD TUBE #1 0 (0); GROSS BLOOD TUBE #2 0 (0); SUPERNATE COLOR TUBE #1 CLEAR (CLEAR); SUPERNATE COLOR TUBE #2 CLEAR (CLEAR)
[2016-10-30 11:11] LABS: CSF LYMPHOCYTES 67 %; CSF MONOCYTES 33 %; CSF NEUTROPHILS 0 %; GROSS BLOOD TUBE #3 0 (0); GROSS BLOOD TUBE #4 0 (0); SUPERNATE COLOR TUBE #3 CLEAR (CLEAR); SUPERNATE COLOR TUBE #4 CLEAR (CLEAR); WBC TUBE #4 4 /MM3 (0-10)
--- NOTE | 2016-10-30 14:32 | EKG ---
Date Performed: 10/29/2016 Time Performed: 15:30:03 PTAGE: 50 years EKG: ECTOPIC ATRIAL RHYTHM INDETERMINATE AXIS INFERIOR MYOCARDIAL INFARCTION ANTEROLATERAL MYOCA RDIAL INFARCTION MARKED ST DEPRESSION, CONSIDER SUBENDOCARDIAL INJURY ABNORMAL ECG INTERPRETATION BA SED ON A DEFAULT AGE OF 40 YEARS PREVIOUS TRACING : 10/20/2016 06.24 Since previous tracing, no significant change noted DOCTOR: Michelle Staton Interpretating Date/Time 10/30/2016 14:24:00
--- NOTE | 2016-10-30 17:02 | PD.PROCEDR ---
Procedure Note Procedure Lumbar Puncture Diagnosis: Encephalopathy Indications: Fever, encephalopathy Consent: Written consent was obtained Anesthesia: 1% lidocaine locally Description of the Procedure: The patient was placed in the supine, left lateral decubitus position. The patient was prepped and draped sterilely. 1% lidocaine was infiltrated subcutaneously. A 20g Quincke needle was inserted into the L3-4 interspace and advanced until CSF was obtained. Opening pressure was obtained. CSF was drained in 4 incremental vials. The needle was removed and a dressing was applied. The patient was returned to the supine position. Instructions were given to remain flat x 2 hours. There were no immediate complications noted. There was minimal EBL. The patient tolerated the procedure well. Opening Pressure: 16 Amount of CSF removed: 10 mL Findings: Clear CSF. I personally performed the procedure. Brad Ocampo MD Oct 30, 2016 17:02
--- NOTE | 2016-10-30 17:16 | EC ---
Study Study Date:10/30/2016 STUDY CONCLUSIONS SUMMARY - Left ventricle: The cavity size was normal. Systolic function was normal. The estimated ejection fraction was in the range of 55% to 60%. - Mitral valve: Moderate to severe regurgitation directed toward the septum. - Left atrium: The atrium was moderately dilated. - Tricuspid valve: Moderate regurgitation directed toward the septum. - Pulmonary arteries: PA peak pressure: 58mm Hg (S). If LV function is below 40, please consider prescribing an ACEI or ARB or document rationale for non-use. PROCEDURE DATA STUDY STATUS: Elective. Procedure: Transthoracic echocardiography. Image quality was good. Scanning was performed from the parasternal, apical, and subcostal acoustic windows. Study completion: The patient tolerated the procedure well. Transthoracic echocardiography. M-mode, complete 2D, complete spectral Doppler, and color Doppler. Height: Height: 72in. Weight: Weight: 199.6lb. Body mass index: BMI: 27.1kg/m^2. Body surface area: BSA: 2.13m^2. Patient status: Inpatient. CARDIAC ANATOMY LEFT VENTRICLE: The cavity size was normal. Systolic function was normal. The estimated ejection fraction was in the range of 55% to 60%. AORTIC VALVE: Not well visualized. Doppler: There was no stenosis. No significant regurgitation. Valve area: 2.21cm^2(VTI). Indexed valve area: 1.04cm^2/m^2 (VTI). Valve area: 2.27cm^2 (Vmax). Indexed valve area: 1.07cm^2/m^2 (Vmax). Mean gradient: 9mm Hg (S). Peak gradient: 16mm Hg (S). MITRAL VALVE: Doppler: There was no evidence for stenosis. Moderate to severe regurgitation directed toward the septum. Peak gradient: 3mm Hg (D). LEFT ATRIUM: The atrium was moderately dilated. PULMONIC VALVE: Not well visualized. Doppler: There was no evidence for stenosis. Trace regurgitation. TRICUSPID VALVE: The valve appears to be grossly normal. Doppler: There was no evidence for stenosis. Moderate regurgitation directed toward the septum. PERICARDIUM: There was no pericardial effusion. Patient weight: 199.6lb _Ejection fraction:_ 65-75% _Fractional shortening:_ 32% up to 5Kg 5-11.5Kg 11.6-22.9Kg 23-45Kg 45-57Kg Aortic Root 7-13 <17 13-22 17-27 17-27 LA diam 6-13 <23 24-38 33-47 37-40 RVID 10-17 7-15 7-15 7-18 8-17 LVIDd 12-22 <32 24-38 33-47 37-40 LVPW 2-4 3-6 5-7 6-8 7-8 IVS 2-4 3-6 5-7 6-8 7-8 BASIC MEASUREMENTS ADULT NORMAL Left ventricle LV internal dimension, ED, chordal *53.7 mm 43-52 level, PLAX LV internal dimension, ES, chordal 37.5 mm 23-38 level, PLAX Fractional shortening, chordal level, 30 % >29 PLAX LV posterior wall thickness, ED 7.45 mm IVS/LVPW ratio, ED 1.01 <1.3 Ventricular septum Septal thickness, ED 7.56 mm Aortic valve Leaflet separation 16 mm 15-26 Aorta Root diameter, ED 27 mm Left atrium Anterior-posterior dimension 45 mm Anterior-posterior dimension index 2.11 cm/m^2 <2.2 BASIC MEASUREMENTS ADULT NORMAL Aortic valve Leaflet separation 16 mm 15-26 DOPPLER MEASUREMENTS ADULT NORMAL Main pulmonary artery Pressure, S *58 mm Hg =30 Aortic valve Peak velocity, S 201 cm/s Mean velocity, S 136 cm/s VTI, S 34.7 cm Mean gradient, S 9 mm Hg Peak gradient, S 16 mm Hg Valve area, VTI 2.21 cm^2 Valve area index, VTI 1.04 cm^2/m^2 Valve area, Vmax 2.27 cm^2 Valve area index, Vmax 1.07 cm^2/m^2 Mitral valve Peak E-wave velocity 92.3 cm/s Peak A-wave velocity 105 cm/s Peak gradient, D 3 mm Hg Peak E/A ratio 0.9 Tricuspid valve Regurgitant peak velocity 334 cm/s Peak RV-RA gradient, S 45 mm Hg Maximal regurgitant velocity 334 cm/s Systemic veins Estimated CVP 10 mm Hg Right ventricle RV pressure, S *61 mm Hg <30 Pulmonic valve Peak velocity, S 81.9 cm/s LEGEND: Mean values are shown as u=mean value. Asterisk (*) cornelius values outside specified normal range. Prepared and signed by Oneil Avalos [id number]
[2016-10-30 17:24] LABS: CKMB 6.7 NG/ML (0.5-3.6)
--- NOTE | 2016-10-30 18:02 | MB ---
cc: TRACEY BRIDGES M.D. DATE OF CONSULTATION: 10/30/2016. ADDENDUM The patient also underwent lumbar puncture and the CSF reveals 4 WBCs, 67% lymphocytes, 33% monos, 2 RBCs, total protein 97.6, glucose 58 with no sign thus far of [employer]ING [employer]INATING [employer]ER infection. MD KAREN Hernandez/SLICK /5:52 PM /6:01 PM
--- NOTE | 2016-10-30 18:24 | MB ---
cc: TANIA KINNEY M.D. DATE OF CONSULTATION 10/30/16 REASON FOR CONSULTATION Mental status change. HISTORY OF PRESENT ILLNESS Mr. Hutchinson is a 51-year-old man who has a history of cervical myelopathy due to trauma with quadriparesis. He was recently admitted to the hospital with sepsis and mental status change. He was discharged home but now is readmitted with mental status change with confusion, disorientation. Apparently, he was found at a bus stop unresponsiveness, was given Narcan by EMS without any improvement in the ER very lethargic and as they were moving him into a bed. He became pulseless. CPR was initiated and he shortly regained rhythm. He has been alert but talking in gibberish, not making sense. PAST MEDICAL HISTORY 1. Previous spinal cord injury, 2. Cervical myelopathy 3. Recently admitted for sepsis. MEDICATIONS 1. Lasix, 2. Neurontin, 3. Levaquin 4. Duragesic patch 5. Potassium chloride MEDICATIONS here in the hospital 1. Cefepime 2. Protonix 3. Colace. 5. Tylenol. 6. Zofran 7. Dulcolax. NEUROLOGIC EXAMINATION VITAL SIGNS: Blood pressure 100/60, pulse is 98, respirations 16, temperature 98.2 degrees. Higher cortical function: He is alert. He can tell me where he is at, where he lives. He can tell me the year. He talks with a pressured type of speech, disorganized thoughts. He does not appear to have hallucinations at the present time. He can follow simple commands. He has poor recall. Cranial nerves intact. On motor exam he is not moving his upper or lower extremities. Reflexes are 3+ symmetric with bilateral Babinski present. CT of the brain - no acute change present illness. LABORATORY DATA The white count is 9005 and hemoglobin 11.5, hematocrit 34%, platelet count 246,000. PT 13, INR 1.2, APTT 33.4, sodium is 148, potassium 3.8, chloride 117, CO2 19.5, BUN is 23, creatinine 2.92. GFR 28, glucose is 94, calcium 7.3, a protein corrected calcium 8.1, CPK 668. Ammonia 30. IMPRESSION Encephalopathy RECOMMENDATION I would like to repeat the electroencephalogram, also MRI of the brain. MD DAVINA Rosa /5:44 PM /6:02 PM
--- NOTE | 2016-10-30 20:38 | RADRPT ---
EXAM DATE/TIME: 10/30/2016 20:03 [facility] COMPARISON: No previous studies available for comparison. INDICATIONS : CVA. MEDICAL HISTORY : Paraplegic. SURGICAL HISTORY : Fusion, cervical. ENCOUNTER: Subsequent ACUITY: 2 day PAIN SCORE: 0/10 LOCATION: head TECHNIQUE: Multiplanar, multisequence MRI of the brain was performed without contrast. FINDINGS: CEREBRUM: The ventricles are normal for age. No evidence of midline shift, mass lesion, hemorrhage or acute in farction. No extraaxial fluid collections are seen. The pituitary gland and suprasellar cistern are normal in configuration. WHITE MATTER: Minimal signal abnormalities are seen in the white matter. POSTERIOR FOSSA: The cerebellum and brainstem are intact. The 4th ventricle is midline. The cerebellopontine angle is unremarkable. The cerebellar tonsils are normal in position. DIFFUSION IMAGING: No focal areas of restricted diffusion are seen. No evidence of acute infarction. EXTRACRANIAL: The visualized portions of the orbits and paranasal sinuses are unremarkable. CONCLUSION: 1. No acute findings. No recent infarct. Minimal white matter ischemic changes. Jeffry Gibbons MD on October 30, 2016 at 20:34 Board Certified Radiologist. This report was verified electronically.
[2016-10-30] MEDS ORDERED: TIZA1POW4 PO (21:12)
[2016-10-30] MEDS ORDERED: ISOS60TA PO (21:12)
[2016-10-30] MEDS ORDERED: POTA-163 PO (21:12)
[2016-10-30] MEDS ORDERED: METOPROLOL TARTRATE 5 MG/5 ML VIAL IV PUSH SCH (21:45)
[2016-10-30] MEDS ORDERED: ACETAMINOPHEN 1000 MG/100 ML VIAL IV ONE (22:45)
[2016-10-30 23:01] LABS: CKMB 5.5 NG/ML (0.5-3.6)
[2016-10-31] VITALS (15 sets, daily range): BP systolic 132–155; BP diastolic 75–94; PULSE 63–99; RESP 14–27; TEMP 98.4–98.9; O2SAT 90–100
[2016-10-31] MEDS: CEFEPIME INJ 2,000 MG in SODIUM CHLORIDE 0.9% INJ 100 ML IV SCH ×2 (06:00→17:53)
[2016-10-31] MEDS: CHLORHEXIDINE GLUCONATE 2 % 1 PACK (2 CLOTHS) TOP SCH (06:00)
[2016-10-31] MEDS: PANTOPRAZOLE SODIUM 40 MG VIAL IV SCH (08:33)
[2016-10-31] MEDS: DOCUSATE SODIUM 100 MG CAP PO SCH ×2 (09:00→21:00)
[2016-10-31] MEDS: SODIUM CHLORIDE 0.9% FLUSH 5 ML FLUSH IV FLUSH SCH ×2 (09:00→22:11)
[2016-10-31 13:01] LABS: HSV 1,PCR Negative (Negative)
--- NOTE | 2016-10-31 13:36 | HHI.CCPN ---
Subjective Remarks/Hospital Course Hospital Course: 50-year-old male with history of paraplegia from a fall, seen recently for sepsis, presents to the ER today because he was found at the bus stop unresponsive, was given a small dose of Narcan by EMS without significant improvement, still lethargic. As they were moving him to a bed, patient was again unresponsive, pulseless could not be found, and CPR was initiated on him. After 1 minute of CPR and bag valve mask initiation, a reevaluation of rhythm and pulse check was done when I arrived in the room and it shows an organized rhythm, patient had pulses, and regain consciousness. Blood pressure was 75/ 47. IV fluids were initiated and workup initiated. Critical care medicine was consulted for treatment and management. Modifying Factors: None Associated Signs & Symptoms: Unresponsive episode, hypotension, PEA Risk Factors: Paraplegic, recent sepsis Subjective: 10/31: LP done yesterday, not consistent with bacterial infectious etiology. throughout the day yesterday, narcan was weaned off. patient became more alert and oriented. now very conversant and back to neurologic baseline. Neuro consulted yesterday. mri without acute disease. Objective Vital Signs Date Time Temp Pulse Resp B/P Pulse Ox O2 Delivery O2 Flow Rate FiO2 10/31/16 08:00 98.6 79 14 135/76 100 10/30/16 19:48 Nasal Cannula 2.00 Intake and Output 10/30/16 10/30/16 10/31/16 08:00 16:00 00:00 Intake Total 1302 ml 899 ml 1329 ml Output Total 2100 ml 1505 ml 1300 ml Balance -798 ml -606 ml 29 ml Result Diagram: 10/30/16 0410 10/30/16 0841 Other Results Microbiology Date/Time Procedure Status Source Growth 10/29/16 15:20 Urine Culture - Final Complete Urine Catheterized Urine NO GROWTH IN 48 HOURS. Imaging Last [address] 10/29/16 151 Signed Impressions: Service Date/Time: October 17:52 - CONCLUSION: No acute intracranial abnormality demonstrated. Triston Olsen MD Chest X-Ray 10/29/161512 Signed Impressions: Service Date/Time: October 15:24 - CONCLUSION: No acute disease. Triston De Luna MD Objective Remarks GENERAL: Yolanda male lying in bed, awake and oriented. SKIN: Warm and dry. HEAD: Atraumatic. Normocephalic. EYES: Pupils equal and round. No scleral icterus. No injection or drainage. ENT: No nasal bleeding or discharge. Mucous membranes pink and moist. NECK: Trachea midline. No JVD. CARDIOVASCULAR: Normal rate, regular rhythm. RESPIRATORY: No accessory muscle use. Clear to auscultation. Breath sounds equal bilaterally. GASTROINTESTINAL: Abdomen soft, non-tender, nondistended. No guarding. MUSCULOSKELETAL: Extremities without clubbing, cyanosis, or edema. NEUROLOGICAL: RASS 0. No gross focal/sensory deficits. Follows commands in upper extremities. A/P Assessment and Plan Plan by systems: Neurologic: Altered mental statustoxic encephalopathy versus Paraplegia C4-C5 fracture, spinal cord injury 2004 Spasticity -Patient hospitalized 1 week ago with same symptomatology neurological workup negative -CT 10/25/16-no cranial abnormality, repeat CT 10/29/16negative -EEG 10/25/16 unremarkable -Resume baclofen when clinically indicated -Patient on fentanyl patch, patch removed -LP done 10/30. -Neurology consult-Dr. Shafer -could be gabapentin toxicity, if drug related. Respiratory: -No acute issues -Bronchodilators when necessary Cardiovascular: PEA Arrest Hypotension -Repeat EKG-normal sinus rhythm -Hypotension resolved with volume resuscitation -telemetrynormal sinus rhythm Renal: EZEQUIEL secondary to hypotension Rhabdomyolysis- improving. -Monitor BMP-creatinine 4.63 -repeat BMP today. -- Strict I/Os FEN/GI: -Obtain nothing by mouth -IV fluids normal saline 84cc/hr Heme/ID: Septic shock- resolved. - continue vanc/cefepime - f/u culture data - wbc improving. Endocrine: -Euglycemic -Glucose monitoring per ICU protocol -- SSI Prophylaxis: GI Prophylaxis Protonix DVT Prophylaxis -- SCDs -- Lines: piv Peripheral IVs. Central line if indicated Dispo: remained stable. back to neurologic baseline. stable for transfer to the floor with hospitalist following. Brad Ocampo MD Oct 31, 2016 13:36 Brad Ocampo MD Oct 31, 2016 13:36
--- NOTE | 2016-10-31 15:00 | EKG ---
Date Performed: 10/30/2016 Time Performed: 21:47:02 PTAGE: 51 years EKG: Sinus rhythm Short WI interval Inferior T wave changes are nonspecific Borderline ECG PREVIOUS TRACING : 10/29/2016 15.30 Compared to the previous tracing, rate has increased DOCTOR: Oneil Avalos Interpretating Date/Time 10/31/2016 14:59:37
[2016-10-31] MEDS: HEPARIN SODIUM - SQ 10,000 UNITS/ML VIAL SQ SCH ×2 (16:33→22:11)
[2016-10-31 19:04] LABS: HEMATOCRIT 35.9 % (39.0-51.0); MEAN CELL VOLUME 86.7 FL (80.0-100.0); MEAN CORPUSCULAR HEMOGLOBIN 28.9 PG (27.0-34.0); MEAN CORPUSCULAR HGB CONC 33.4 % (32.0-36.0); PLATELET COUNT 297 TH/MM3 (150-450); RED BLOOD COUNT 4.14 MIL/MM3 (4.50-5.90); RED CELL DISTRIBUTION WIDTH 15.6 % (11.6-17.2); REVIEW FLAG FINAL; WHITE BLOOD COUNT 9.7 TH/MM3 (4.0-11.0)
[2016-10-31 19:20] LABS: BICARBONATE 23.3 MEQ/L (21.0-32.0); POTASSIUM 3.6 MEQ/L (3.5-5.1)
--- NOTE | 2016-10-31 19:50 | MG ---
cc: TRACEY BRIDGES M.D. Lab No: 17-27 Date: 10/31/2016 Age: Sex: M Race: TECHNIQUE: 17 channel EEG. DESCRIPTION: Back rhythm reveals a symmetrical alpha rhythm, frequency roughly 8-10 Hz, amplitude 20-30 microvolts. During drowsiness there is slowing in the theta range. No epileptiform discharges are seen. No lateralizing features are seen. Hyperventilation was not done. Photic stimulation resulted in a normal driving response. INTERPRETATION: Normal EEG. MD KAREN Hernandez/SLICK /4:56 PM /7:47 PM
--- NOTE | 2016-10-31 19:50 | MG ---
cc: TRACEY BRIDGES M.D. Lab No: 17-27 Date: 10/31/2016 Age: Sex: M Race: TECHNIQUE: 17 channel EEG. DESCRIPTION: The background rhythm is a symmetrical alpha rhythm, frequency 8 Hz, amplitude is about 20-30 microvolts. During drowsiness, there is slowing in the theta range. No lateralizing features are seen. No epileptiform discharges present. Photic results in a normal driving response. INTERPRETATION: Normal EEG. MD KAREN Hernandez/SLICK /4:55 PM /7:45 PM
[2016-10-31] MEDS ORDERED: VANCOMYCIN 1,500 MG/NS 500 ML IV ONE ×2 (21:00)
[2016-10-31 22:19] LABS: ENTEROVIRUS PCR RESULT Negative (Negative); ENTEROVIRUS PCR SPEC SOURCE CSF (())
[2016-11-01] VITALS (10 sets, daily range): BP systolic 120–145; BP diastolic 71–86; PULSE 74–89; RESP 18–20; TEMP 97.5–100.4; O2SAT 96–100
[2016-11-01] MEDS: CHLORHEXIDINE GLUCONATE 2 % 1 PACK (2 CLOTHS) TOP SCH (03:52)
[2016-11-01] MEDS: CEFEPIME INJ 2,000 MG in SODIUM CHLORIDE 0.9% INJ 100 ML IV SCH (06:00)
[2016-11-01] MEDS: HEPARIN SODIUM - SQ 10,000 UNITS/ML VIAL SQ SCH ×3 (06:00→20:54)
[2016-11-01] MEDS: SODIUM CHLORIDE 0.9% FLUSH 5 ML FLUSH IV FLUSH SCH ×2 (08:17→20:55)
[2016-11-01] MEDS: DOCUSATE SODIUM 100 MG CAP PO SCH ×2 (08:17→20:54)
[2016-11-01] MEDS: PANTOPRAZOLE SODIUM 40 MG VIAL IV SCH (08:17)
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
[2016-11-01] MEDS: SENNOSIDES 8.6 MG TAB PO SCH (11:15)
[2016-11-01] MEDS: BACLOFEN 20 MG TAB PO SCH ×3 (11:27→20:54)
[2016-11-01] MEDS: ASPIRIN EC 81 MG TABEC PO SCH (11:27)
[2016-11-01] MEDS: CARVEDILOL 3.125 MG TAB PO SCH ×2 (11:27→20:54)
[2016-11-01] MEDS: DEXT 5%-NACL 0.45% 1000 ML INJ 1,000 ML IV SCH ×2 (11:28→23:50)
[2016-11-01] MEDS: fentaNYL 25 MCG/HR PATCH TD SCH (11:28)
[2016-11-01 12:29] LABS: ANION GAP 9 MEQ/L (5-15); BICARBONATE 25.1 MEQ/L (21.0-32.0); BLOOD UREA NITROGEN 14 MG/DL (7-18); CHLORIDE 111 MEQ/L (98-107); CREATINE KINASE 161 U/L (39-308); GLOMERULAR FILTRATION RATE 46 ML/MIN (>89); LDL CHOLESTEROL 75 MG/DL (0-99); POTASSIUM 3.5 MEQ/L (3.5-5.1); SODIUM (NA) 145 MEQ/L (136-145)
--- NOTE | 2016-11-01 12:29 | MB ---
cc: BRADFORD THOMAS,EREN Mcmahan M.D. DATE OF CONSULTATION: 11/01/2016 REASON FOR CONSULTATION: I was consulted to see the patient for cardiology. I did review the records and go and see the patient. 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 I did speak with Dr. Thomas who will cancel the consult to us and put in the appropriate consult to his own retail store associate. MD CLAUDINE To/ANTWON /12:06 PM /12:25 PM
[2016-11-01 13:59] LABS: HEMOGLOBIN A1a 2.7 %; HEMOGLOBIN A1b 1.3 %; HEMOGLOBIN LA1C 1.8 %; HEMOGLOBIN P3 3.4 %
[2016-11-01] MEDS: ACETAMINOPHEN 1000 MG/100 ML VIAL IV SCH ×2 (14:54→23:56)
[2016-11-02] MEDS: ACETAMINOPHEN 1000 MG/100 ML VIAL IV SCH ×3 (05:23→22:56)
[2016-11-02] MEDS: HEPARIN SODIUM - SQ 10,000 UNITS/ML VIAL SQ SCH ×3 (05:23→22:12)
[2016-11-02 05:28] VITALS: BP 152/90; PULSE 82; RESP 20; TEMP 98.5; O2SAT 99
[2016-11-02 07:35] LABS: HEMATOCRIT 30.6 % (39.0-51.0); MEAN CELL VOLUME 84.7 FL (80.0-100.0); MEAN CORPUSCULAR HEMOGLOBIN 28.3 PG (27.0-34.0); MEAN CORPUSCULAR HGB CONC 33.5 % (32.0-36.0); PLATELET COUNT 283 TH/MM3 (150-450); RED BLOOD COUNT 3.61 MIL/MM3 (4.50-5.90); RED CELL DISTRIBUTION WIDTH 15.1 % (11.6-17.2); REVIEW FLAG FINAL; WHITE BLOOD COUNT 5.6 TH/MM3 (4.0-11.0)
[2016-11-02 08:00] VITALS: BP 143/86; PULSE 80; RESP 18; TEMP 96.5; O2SAT 96
[2016-11-02 08:02] LABS: BICARBONATE 24.5 MEQ/L (21.0-32.0); MAGNESIUM 1.7 MG/DL (1.5-2.5); POTASSIUM 3.2 MEQ/L (3.5-5.1)
[2016-11-02] MEDS: SENNOSIDES 8.6 MG TAB PO SCH (09:00)
[2016-11-02] MEDS: DOCUSATE SODIUM 100 MG CAP PO SCH ×2 (09:00→21:00)
[2016-11-02 09:46] LABS: CSF CRYPTOCOCCUS AG CONF ND (NOT DETECTD)
--- NOTE | 2016-11-02 09:48 | RADRPT ---
EXAM DATE/TIME: 11/02/2016 09:10 [facility] COMPARISON: CHEST SINGLE AP, October 29, 2016, 15:24. INDICATIONS: Short of breath, weakness MEDICAL HISTORY: Paraplegic SURGICAL HISTORY: Fusion, cervical. ENCOUNTER: Subsequent ACUITY: 1 week PAIN SCORE: 0/10 LOCATION: Bilateral chest FINDINGS: Study is abnormal. There is mild interstitial prominence with minimal parenchymal changes in the rig ht base, could be an inflammatory process. There is no pleural effusion or pneumothorax. Portion of bony skeleton visualized unremarkable. CONCLUSION: Abnormal chest as described above. Isak Thomason MD FACR on November 02, 2016 at 9:37 Board Certified Radiologist. This report was verified electronically.
[2016-11-02] MEDS: CARVEDILOL 3.125 MG TAB PO SCH ×2 (10:26→22:12)
[2016-11-02] MEDS: BACLOFEN 20 MG TAB PO SCH ×4 (10:26→22:11)
[2016-11-02] MEDS: PANTOPRAZOLE SODIUM 40 MG VIAL IV SCH (10:26)
[2016-11-02] MEDS: ASPIRIN EC 81 MG TABEC PO SCH (10:26)
[2016-11-02] MEDS: SODIUM CHLORIDE 0.9% FLUSH 5 ML FLUSH IV FLUSH SCH ×2 (10:27→22:13)
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
[2016-11-02 12:00] VITALS: BP_SYST 140; BP_SYST 151; BP_DIAS 103; BP_DIAS 84; PULSE 81; PULSE 82; RESP 18; TEMP 97.1; TEMP 97.4; O2SAT 98
[2016-11-02 12:23] VITALS: O2SAT 97
[2016-11-02] MEDS ORDERED: Vancomycin Consult Pharmacy 1 EA OTHER SCH (13:00)
[2016-11-02 13:30] VITALS: BP 142/85
[2016-11-02] MEDS ORDERED: POTASSIUM CHLORIDE 25 MEQ EFFERVESCENT TAB PO ONE (13:30)
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
[2016-11-02] MEDS ORDERED: RESP: ALBUTEROL 2.5 MG/IPRATROPIUM 0.5 MG NEB (SCH) NEB ONE (14:00)
[2016-11-02] MEDS: LORazepam 0.5 MG TAB PO PRN ×2 (14:08→22:28)
[2016-11-02] MEDS: PIPERACIL-TAZO 4.5 GM PREMIX 100 ML IV SCH ×2 (15:27→22:10)
[2016-11-02] MEDS: POTASSIUM CHLORIDE INJ 30 MEQ in DEXT 5%-NACL 0.9% 1000 ML INJ 1,000 ML IV SCH (15:27)
[2016-11-02] MEDS ORDERED: RESP: ALBUTEROL 2.5 MG/IPRATROPIUM 0.5 MG NEB (PRN) NEB (16:00)
[2016-11-02 16:22] LABS: TRANSFERRIN IRON PROFILE 141 MG/DL (200-360)
[2016-11-02 16:47] LABS: FERRITIN 200 NG/ML (26-388)
[2016-11-02] MEDS: VANCOMYCIN INJ 1,500 MG in SODIUM CHLORID 0.9% 500 ML INJ 500 ML IV SCH (18:13)
[2016-11-02 20:00] VITALS: BP 143/89; PULSE 78; PULSE 81; RESP 18; TEMP 99.6; O2SAT 100; O2SAT 97
[2016-11-03] VITALS (8 sets, daily range): BP systolic 125–141; BP diastolic 71–85; PULSE 72–84; RESP 17–20; TEMP 96.4–98.3; O2SAT 97–100
[2016-11-03] MEDS: PIPERACIL-TAZO 4.5 GM PREMIX 100 ML IV SCH ×4 (03:00→22:21)
[2016-11-03] MEDS: ACETAMINOPHEN 1000 MG/100 ML VIAL IV SCH (06:15)
[2016-11-03] MEDS: HEPARIN SODIUM - SQ 10,000 UNITS/ML VIAL SQ SCH ×3 (06:16→21:49)
--- NOTE | 2016-11-03 08:05 | HHI.PR ---
Subjective Remarks pt denies chest pain Objective Vital Signs Date Time Temp Pulse Resp B/P Pulse Ox O2 Delivery O2 Flow Rate FiO2 11/03/16 04:00 97.3 73 20 140/71 100 11/03/16 00:00 98.3 72 18 132/80 100 11/02/16 20:00 99.6 78 18 143/89 100 11/02/16 20:00 97 21 11/02/16 20:00 81 11/02/16 13:30 142/85 11/02/16 12:23 97 21 11/02/16 12:00 97.1 82 18 140/84 98 11/02/16 12:00 97.4 81 18 151/103 98 I/O 11/02/16 11/02/16 11/02/16 11/03/16 11/03/16 11/03/16 07:00 15:00 23:00 07:00 15:00 23:00 Intake Total 650 ml 720 ml 2876 ml Output Total 1600 ml 1550 ml 1800 ml Balance -950 ml -830 ml 1076 ml Intake Oral 720 ml 650 ml IV Total 650 ml 2226 ml Output Urine Total 1600 ml 1550 ml 1800 ml VSS CHECT: CTA HEART: S1,S2,RRR ABD: ST, NT EXT: No edema Result Diagram: 11/02/1662911/02/16629 Assessment and Plan Assessment and Plan pt denies chest pain. stable cardiacwise...ECHO is WNL... agree with current treatment. I will follow as needed. Ever White MD Nov 03, 2016 08:05
[2016-11-03] MEDS: BACLOFEN 20 MG TAB PO SCH ×4 (08:18→21:48)
[2016-11-03] MEDS: SENNOSIDES 8.6 MG TAB PO SCH (08:18)
[2016-11-03] MEDS: PANTOPRAZOLE SODIUM 40 MG VIAL IV SCH (08:19)
[2016-11-03] MEDS: ASPIRIN EC 81 MG TABEC PO SCH (08:19)
[2016-11-03] MEDS: CARVEDILOL 3.125 MG TAB PO SCH ×2 (08:19→21:48)
[2016-11-03] MEDS: DOCUSATE SODIUM 100 MG CAP PO SCH ×2 (08:19→21:00)
[2016-11-03] MEDS: SODIUM CHLORIDE 0.9% FLUSH 5 ML FLUSH IV FLUSH SCH ×2 (08:20→21:49)
[2016-11-03 09:38] LABS: HEMATOCRIT 31.9 % (39.0-51.0); MEAN CELL VOLUME 84.9 FL (80.0-100.0); MEAN CORPUSCULAR HEMOGLOBIN 28.8 PG (27.0-34.0); PLATELET COUNT 286 TH/MM3 (150-450); RED BLOOD COUNT 3.76 MIL/MM3 (4.50-5.90); RED CELL DISTRIBUTION WIDTH 15.4 % (11.6-17.2); REVIEW FLAG FINAL; WHITE BLOOD COUNT 5.1 TH/MM3 (4.0-11.0)
[2016-11-03 10:16] LABS: MAGNESIUM 1.8 MG/DL (1.5-2.5); POTASSIUM 3.6 MEQ/L (3.5-5.1)
[2016-11-03] MEDS: VANCOMYCIN INJ 1,500 MG in SODIUM CHLORID 0.9% 500 ML INJ 500 ML IV SCH (11:32)
--- NOTE | 2016-11-03 14:28 | HHI.PR ---
Subjective Remarks Follow-up encephalopathy, chest pain. The patient reports dyspnea that started about an hour ago. No chest pain currently. Denies cough. Objective Vitals Vital Signs Date Time Temp Pulse Resp B/P Pulse Ox O2 Delivery O2 Flow Rate FiO2 11/03/16 12:00 96.8 75 20 125/83 99 11/03/16 10:26 97 21 11/03/16 08:00 96.4 78 20 130/78 97 11/03/16 04:00 97.3 73 20 140/71 100 11/03/16 00:00 98.3 72 18 132/80 100 11/02/16 20:00 99.6 78 18 143/89 100 11/02/16 20:00 97 21 11/02/16 20:00 81 I/O 11/02/16 11/02/16 11/02/16 11/03/16 11/03/16 11/03/16 07:00 15:00 23:00 07:00 15:00 23:00 Intake Total 650 ml 720 ml 2876 ml Output Total 1600 ml 1550 ml 1800 ml Balance -950 ml -830 ml 1076 ml Intake Oral 720 ml 650 ml IV Total 650 ml 2226 ml Output Urine Total 1600 ml 1550 ml 1800 ml Result Diagram: 11/03/16 0850 11/03/16 0850 Imaging Last Impressions Chest X-Ray 11/02/16 0000 Signed Impressions: Service Date/Time: Wednesday, November 02, 2016 09:10 - CONCLUSION: Abnormal chest as described above. Isak Thomason MD FACR Brain MRI 10/30/16 0000 Signed Impressions: Service Date/Time: Sunday, October 30, 2016 20:03 - CONCLUSION: 1. No acute findings. No recent infarct. Minimal white matter ischemic changes. Jeffry Gibbons MD Head CT 10/29/16 1513 Signed Impressions: Service Date/Time: October 17:52 - CONCLUSION: No acute intracranial abnormality demonstrated. Triston Olsen MD Objective Remarks General: No acute distress. Heart: Regular rate and rhythm. No murmur. Lungs: Clear to auscultation bilaterally. No wheezes, rales, or rhonchi. Breathing is nonlabored. Abdomen: Soft, nontender, nondistended. Extremities: No lower extremity edema. Bilateral lower extremity weakness noted. Psych: Alert and oriented. Procedures 10/30/16 lumbar puncture Urinary Catheter: Yes Assessment to: Continue Norman insert reason: Prolonged Immobilization Vascular Central Line Catheter: No A/P Problem List: (1) Tetraparesis ICD Code: G82.50 Status: Chronic (2) Pressure ulcer of sacral region, stage 4 ICD Code: L89.154 Status: Chronic (3) Hypertension ICD Code: I10 Status: Chronic (4) Encephalopathy ICD Code: G93.40 Status: Acute (5) Healthcare-associated pneumonia ICD Code: J18.9 Status: Acute (6) Rhabdomyolysis ICD Code: M62.82 Status: Resolved (7) Acute renal failure ICD Code: N17.9 Status: Acute (8) Septic shock ICD Code: A41.9 Status: Resolved Assessment and Plan 1. Metabolic encephalopathy: Patient initially presented unresponsive. Mental status has improved. Likely multifactorial. Patient has recent pneumonia. Presented with acute renal failure. Continue PT/OT/ST. Appreciate neurology recommendations. 2. PEA arrest: Status post CPR. Appreciate cardiology recommendations. Medical management. Echocardiogram unremarkable. Monitor on telemetry. Continue Coreg, aspirin. 3. Chest pain: Improved. Patient does have chronic chest wall tenderness, likely costochondritis. 4. Acute renal failure: Improved with IV fluids. Creatinine still elevated, but trending down. 5. Rhabdomyolysis: Resolved. 6. Septic shock, healthcare associated pneumonia: Continue vancomycin, Zosyn. Follow-up sputum culture. 7. Generalized weakness, tetraparesis: Status post spinal cord injury. Continue PT/OT. 8. DVT prophylaxis: Heparin. 9. Dyspnea: Duoneb as needed. Continue supplemental oxygen. Discharge Planning Will need SNF/rehabilitation at discharge. Case management to assist with discharge planning. Richard Villavicencio MD Nov 03, 2016 14:28
[2016-11-03] MEDS: LORazepam 0.5 MG TAB PO PRN (17:35)
[2016-11-04] VITALS (9 sets, daily range): BP systolic 137–162; BP diastolic 82–97; PULSE 77–84; RESP 17–22; TEMP 96.8–97.5; O2SAT 98–99
[2016-11-04] MEDS: POTASSIUM CHLORIDE INJ 30 MEQ in DEXT 5%-NACL 0.9% 1000 ML INJ 1,000 ML IV SCH (00:22)
[2016-11-04] MEDS: VANCOMYCIN INJ 1,500 MG in SODIUM CHLORID 0.9% 500 ML INJ 500 ML IV SCH ×2 (03:16→23:53)
[2016-11-04] MEDS: PIPERACIL-TAZO 4.5 GM PREMIX 100 ML IV SCH ×4 (03:16→20:49)
[2016-11-04] MEDS: HEPARIN SODIUM - SQ 10,000 UNITS/ML VIAL SQ SCH ×3 (06:13→23:54)
[2016-11-04] MEDS ORDERED: NITROGLYCERIN 0.4 MG SL 25 TABS/BTL SL PRN (07:00)
[2016-11-04] MEDS: PANTOPRAZOLE SODIUM 40 MG VIAL IV SCH (08:56)
[2016-11-04] MEDS: DOCUSATE SODIUM 100 MG CAP PO SCH ×2 (09:00→20:50)
[2016-11-04] MEDS: CARVEDILOL 3.125 MG TAB PO SCH ×2 (09:00→20:49)
[2016-11-04] MEDS: ASPIRIN EC 81 MG TABEC PO SCH (09:00)
[2016-11-04] MEDS: BACLOFEN 20 MG TAB PO SCH ×4 (09:00→20:49)
[2016-11-04] MEDS: SODIUM CHLORIDE 0.9% FLUSH 5 ML FLUSH IV FLUSH SCH ×2 (09:00→20:50)
[2016-11-04] MEDS: SENNOSIDES 8.6 MG TAB PO SCH (09:00)
[2016-11-04] MEDS: fentaNYL 25 MCG/HR PATCH TD SCH (10:10)
[2016-11-04] MEDS ORDERED: REMOVE OLD PATCH T-DERMAL SCH (11:00)
--- NOTE | 2016-11-04 11:58 | HHI.PR ---
Subjective Remarks Follow up chest pain. Patient reporting pain in the center of his chest today, 4.5/10. No radiation of the pain. Has had dyspnea, but that improved with Duoneb. Objective Vitals Vital Signs Date Time Temp Pulse Resp B/P Pulse Ox O2 Delivery O2 Flow Rate FiO2 11/04/16 11:43 98 Nasal Cannula 3.00 11/04/16 10:45 84 11/04/16 08:00 96.8 77 22 162/95 98 11/04/16 04:00 97.4 82 17 146/90 99 11/04/16 00:00 96.8 81 17 137/87 98 11/03/16 22:30 83 11/03/16 20:00 97.5 84 17 134/83 98 11/03/16 16:00 97.1 83 20 141/85 98 11/03/16 12:00 96.8 75 20 125/83 99 I/O 11/03/16 11/03/16 11/03/16 11/04/16 11/04/16 11/04/16 06:59 14:59 22:59 06:59 14:59 22:59 Intake Total 2876 ml 240 ml 240 ml 360 ml Output Total 1800 ml 450 ml 650 ml 1100 ml Balance 1076 ml -210 ml -410 ml -740 ml Intake Oral 650 ml 240 ml 240 ml 360 ml IV Total 2226 ml Output Urine Total 1800 ml 450 ml 650 ml 1100 ml # Bowel Movements 1 Result Diagram: 11/03/16 0850 11/03/16 0850 Imaging Last Impressions Chest X-Ray 11/02/16 0000 Signed Impressions: Service Date/Time: Wednesday, November 02, 2016 09:10 - CONCLUSION: Abnormal chest as described above. Isak Thomason MD FACR Brain MRI 10/30/16 0000 Signed Impressions: Service Date/Time: Sunday, October 30, 2016 20:03 - CONCLUSION: 1. No acute findings. No recent infarct. Minimal white matter ischemic changes. Jeffry Gibbons MD Head CT 10/29/16 1513 Signed Impressions: Service Date/Time: October 17:52 - CONCLUSION: No acute intracranial abnormality demonstrated. Triston Olsen MD Objective Remarks General: No acute distress. Heart: Regular rate and rhythm. No murmur. Lungs: Clear to auscultation bilaterally. No wheezes, rales, or rhonchi. Breathing is nonlabored. Chest wall: Tenderness along left sternal border. Abdomen: Soft, nontender, nondistended. Extremities: No lower extremity edema. Bilateral lower extremity weakness noted. Psych: Alert and oriented. Procedures 10/30/16 lumbar puncture Urinary Catheter: Yes Assessment to: Continue Norman insert reason: Prolonged Immobilization Vascular Central Line Catheter: No A/P Problem List: (1) Tetraparesis ICD Code: G82.50 Status: Chronic (2) Pressure ulcer of sacral region, stage 4 ICD Code: L89.154 Status: Chronic (3) Hypertension ICD Code: I10 Status: Chronic (4) Encephalopathy ICD Code: G93.40 Status: Acute (5) Healthcare-associated pneumonia ICD Code: J18.9 Status: Acute (6) Rhabdomyolysis ICD Code: M62.82 Status: Resolved (7) Acute renal failure ICD Code: N17.9 Status: Acute (8) Septic shock ICD Code: A41.9 Status: Resolved Assessment and Plan 1. Metabolic encephalopathy: Patient initially presented unresponsive. Mental status has improved. Likely multifactorial. Patient has recent pneumonia. Presented with acute renal failure. Continue PT/OT/ST. Appreciate neurology recommendations. 2. PEA arrest: Status post CPR. Appreciate cardiology recommendations. Medical management. Echocardiogram unremarkable. Monitor on telemetry. Continue Coreg, aspirin. 3. Chest pain: Patient reporting pain again today. Troponin elevated, but trending down from admission. Patient does have chronic chest wall tenderness, likely costochondritis. Appreciate cardiology recommendations. 4. Acute renal failure: Improved with IV fluids. Creatinine still elevated, but trending down. 5. Rhabdomyolysis: Resolved. 6. Septic shock, healthcare associated pneumonia: Continue vancomycin, Zosyn. Follow-up sputum culture. 7. Generalized weakness, tetraparesis: Status post spinal cord injury. Continue PT/OT. 8. DVT prophylaxis: Heparin. 9. Dyspnea: Duoneb as needed. Continue supplemental oxygen. Discharge Planning Will need SNF/rehabilitation at discharge. Case management to assist with discharge planning. Richard Villavicencio MD Nov 04, 2016 11:58
[2016-11-04] MEDS ORDERED: PHARMACY ORDERED LAB XX ONE (21:45)
--- NOTE | 2016-11-04 22:24 | EKG ---
Date Performed: 11/04/2016 Time Performed: 12:34:52 PTAGE: 51 years EKG: Sinus rhythm MARKED RIGHT AXIS DEVIATION ANTEROLATERAL MYOCARDIAL INFARCTION , PROBABLY OLD ST DEPRESSION, CONSID ER SUBENDOCARDIAL INJURY ABNORMAL ECG PREVIOUS TRACING : 11/04/2016 08.14 Compared to prior tracing no significant change DOCTOR: Kaiden Walker Interpretating Date/Time 11/04/2016 22:23:04
[2016-11-05] VITALS (8 sets, daily range): BP systolic 126–150; BP diastolic 71–99; PULSE 72–78; RESP 18–24; TEMP 96.8–98.1; O2SAT 96–100
[2016-11-05] MEDS: PIPERACIL-TAZO 4.5 GM PREMIX 100 ML IV SCH ×3 (03:00→13:16)
[2016-11-05] MEDS: HEPARIN SODIUM - SQ 10,000 UNITS/ML VIAL SQ SCH ×3 (05:18→20:33)
[2016-11-05] MEDS: SENNOSIDES 8.6 MG TAB PO SCH (08:06)
[2016-11-05] MEDS: PANTOPRAZOLE SODIUM 40 MG VIAL IV SCH (08:06)
[2016-11-05] MEDS: SODIUM CHLORIDE 0.9% FLUSH 5 ML FLUSH IV FLUSH SCH ×2 (08:07→20:19)
[2016-11-05] MEDS: ASPIRIN EC 81 MG TABEC PO SCH (08:07)
[2016-11-05] MEDS: BACLOFEN 20 MG TAB PO SCH ×4 (08:07→20:19)
[2016-11-05] MEDS: CARVEDILOL 3.125 MG TAB PO SCH ×2 (08:07→20:19)
[2016-11-05] MEDS: DOCUSATE SODIUM 100 MG CAP PO SCH ×2 (08:07→20:19)
--- NOTE | 2016-11-05 10:04 | HHI.PR ---
Subjective Remarks pt denies chest pain Objective Vital Signs Date Time Temp Pulse Resp B/P Pulse Ox O2 Delivery O2 Flow Rate FiO2 11/05/16 08:00 97.1 76 18 146/99 100 11/05/16 07:56 98 Nasal Cannula 2.00 11/05/16 06:05 97.1 75 20 126/71 98 11/05/16 00:00 96.8 72 20 136/81 98 11/04/16 21:48 98 Nasal Cannula 2.00 11/04/16 20:00 97.5 83 20 154/82 99 11/04/16 16:00 97.5 81 20 145/92 99 11/04/16 12:00 96.8 79 22 146/97 99 11/04/16 11:43 98 Nasal Cannula 3.00 11/04/16 10:45 84 I/O 11/04/16 11/04/16 11/04/16 11/05/16 11/05/16 11/05/16 07:00 15:00 23:00 07:00 15:00 23:00 Intake Total 360 ml 420 ml 3082 ml Output Total 1100 ml 1100 ml 950 ml 400 ml Balance -740 ml -680 ml 2132 ml -400 ml Intake Oral 360 ml 420 ml 480 ml IV Total 2602 ml Output Urine Total 1100 ml 1100 ml 950 ml 400 ml # Bowel Movements 0 VSS CHEST: CTA HEART: S1, S2, RRR ABD: ST, NT EXT: No edema Result Diagram: 11/03/16 0850 11/05/16 0609 Assessment and Plan Assessment and Plan pt denies chest pain. stable cardiacwise, I agree with current treatment. I will follow as an outpt. Ever Whiet MD Nov 05, 2016 10:04
--- NOTE | 2016-11-05 12:29 | EKG ---
Date Performed: 11/04/2016 Time Performed: 19:15:41 PTAGE: 51 years EKG: Sinus rhythm WITH SHORT MO INTERVAL WITHOUT PREEXCITATION PEAKED T WAVES ARE MUCH LESS PROMINANT SINCE THE PRIOR TRACING CLINICAL CORRELATION NEEDED ABNORMAL ECG PREVIOUS TRACING : 11/04/2016 12.34 DOCTOR: Edmund Lugo Interpretating Date/Time 11/05/2016 12:28:28
--- NOTE | 2016-11-05 12:29 | EKG ---
Date Performed: 11/04/2016 Time Performed: 08:14:45 PTAGE: 51 years EKG: NORMAL Sinus rhythm PEAKED T WAVES, CONSIDER HYPERKALEMIA OR ANTERIOR ISCHEMIA, THESE CHANGES ARE NEW SINCE THE PRIOR TR ACING PREVIOUS TRACING : 10/30/2016 21.47 DOCTOR: Edmund Lugo Interpretating Date/Time 11/05/2016 12:27:04
--- NOTE | 2016-11-05 13:41 | HHI.PR ---
Subjective Remarks Follow-up chest pain, dyspnea. Patient reports episodes of dyspnea with administration of vancomycin. No chest pain today. Overall feels better. Objective Vitals Vital Signs Date Time Temp Pulse Resp B/P Pulse Ox O2 Delivery O2 Flow Rate FiO2 11/05/16 12:00 97.0 72 18 128/80 98 11/05/16 08:00 97.1 76 18 146/99 100 11/05/16 07:56 98 Nasal Cannula 2.00 11/05/16 06:05 97.1 75 20 126/71 98 11/05/16 00:00 96.8 72 20 136/81 98 11/04/16 21:48 98 Nasal Cannula 2.00 11/04/16 20:00 97.5 83 20 154/82 99 11/04/16 16:00 97.5 81 20 145/92 99 I/O 11/04/16 11/04/16 11/04/16 11/05/16 11/05/16 11/05/16 07:00 15:00 23:00 07:00 15:00 23:00 Intake Total 360 ml 420 ml 3082 ml Output Total 1100 ml 1100 ml 950 ml 400 ml Balance -740 ml -680 ml 2132 ml -400 ml Intake Oral 360 ml 420 ml 480 ml IV Total 2602 ml Output Urine Total 1100 ml 1100 ml 950 ml 400 ml # Bowel Movements 0 Result Diagram: 11/03/16 0850 11/05/16 0609 Imaging Last Impressions Chest X-Ray 11/02/16 0000 Signed Impressions: Service Date/Time: Wednesday, November 02, 2016 09:10 - CONCLUSION: Abnormal chest as described above. Isak Thomason MD FACR Brain MRI 10/30/16 0000 Signed Impressions: Service Date/Time: Sunday, October 30, 2016 20:03 - CONCLUSION: 1. No acute findings. No recent infarct. Minimal white matter ischemic changes. Jeffry Gibbons MD Head CT 10/29/16 1513 Signed Impressions: Service Date/Time: October 17:52 - CONCLUSION: No acute intracranial abnormality demonstrated. Triston Olsen MD Objective Remarks General: No acute distress. Heart: Regular rate and rhythm. No murmur. Lungs: Clear to auscultation bilaterally. No wheezes, rales, or rhonchi. Breathing is nonlabored. Chest wall: Tenderness along left sternal border. Abdomen: Soft, nontender, nondistended. Extremities: No lower extremity edema. Bilateral lower extremity weakness noted. Psych: Alert and oriented. Procedures 10/30/16 lumbar puncture Urinary Catheter: Yes Assessment to: Continue Norman insert reason: Prolonged Immobilization Vascular Central Line Catheter: No A/P Problem List: (1) Tetraparesis ICD Code: G82.50 Status: Chronic (2) Hypertension ICD Code: I10 Status: Chronic (3) Encephalopathy ICD Code: G93.40 Status: Acute (4) Healthcare-associated pneumonia ICD Code: J18.9 Status: Acute (5) Rhabdomyolysis ICD Code: M62.82 Status: Resolved (6) Acute renal failure ICD Code: N17.9 Status: Acute Assessment and Plan 1. Metabolic encephalopathy: Patient initially presented unresponsive. Mental status has improved. Likely multifactorial. Patient had recent pneumonia. Presented with acute renal failure. Continue PT/OT/ST. Appreciate neurology recommendations. 2. PEA arrest: Status post CPR. Appreciate cardiology recommendations. Medical management. Echocardiogram unremarkable. Monitor on telemetry. Continue Coreg, aspirin. 3. Chest pain: Patient not complaining of chest pain today. Troponin elevated, but trending down from admission. Patient does have chronic chest wall tenderness, likely costochondritis. Appreciate cardiology recommendations. 4. Acute renal failure: Improved with IV fluids. Creatinine still elevated, but trending down. 5. Rhabdomyolysis: Resolved. 6. Shock: Patient presented in shock, likely cardiogenic. No active infection was apparent upon admission. Had been treated for sepsis/pneumonia prior to this admission. Discontinue vancomycin/Zosyn. 7. Generalized weakness, tetraparesis: Status post spinal cord injury. Continue PT/OT. 8. DVT prophylaxis: Heparin. 9. Dyspnea: Duoneb as needed. Continue supplemental oxygen. Questionable association with administration of IV antibiotics. Discharge Planning Will need SNF/rehabilitation at discharge. Case management to assist with discharge planning. Richard Villavicencio MD Nov 05, 2016 13:41
[2016-11-05] MEDS ORDERED: VANCOMYCIN INJ 1,750 MG in SODIUM CHLORID 0.9% 500 ML INJ 500 ML IV SCH (16:00)
[2016-11-06] MEDS: LORazepam 0.5 MG TAB PO PRN (00:23)
[2016-11-06 01:20] VITALS: BP 142/92; PULSE 85; RESP 18; TEMP 98.5; O2SAT 98
[2016-11-06 04:00] VITALS: BP 151/69; PULSE 78; RESP 20; TEMP 98; O2SAT 100
[2016-11-06] MEDS: HEPARIN SODIUM - SQ 10,000 UNITS/ML VIAL SQ SCH ×2 (05:20→13:14)
[2016-11-06 06:33] LABS: AUTOMATED NEUTROPHIL # 4.6 TH/MM3 (1.8-7.7); BASOPHIL # 0.1 TH/MM3 (0-0.2); BASOPHIL % 0.7 % (0.0-2.0); EOSINOPHIL # 0.2 TH/MM3 (0-0.4); HEMATOCRIT 31.1 % (39.0-51.0); HEMO FLAGS DIFF FINAL; LYMPH % 23.3 % (9.0-44.0); LYMPHOCYTE # 1.8 TH/MM3 (1.0-4.8); MEAN CELL VOLUME 85.6 FL (80.0-100.0); MEAN CORPUSCULAR HGB CONC 33.9 % (32.0-36.0); MONO % 12.6 % (0.0-8.0); NEUT % 60.4 % (16.0-70.0); PLATELET COUNT 212 TH/MM3 (150-450); RED BLOOD COUNT 3.64 MIL/MM3 (4.50-5.90); RED CELL DISTRIBUTION WIDTH 15.4 % (11.6-17.2); WHITE BLOOD COUNT 7.6 TH/MM3 (4.0-11.0)
[2016-11-06 06:58] LABS: BICARBONATE 28.4 MEQ/L (21.0-32.0); POTASSIUM 3.2 MEQ/L (3.5-5.1)
[2016-11-06 08:00] VITALS: BP 160/93; PULSE 81; RESP 20; TEMP 98.6; O2SAT 95
[2016-11-06] MEDS: PANTOPRAZOLE SODIUM 40 MG VIAL IV SCH (08:39)
[2016-11-06] MEDS: CARVEDILOL 3.125 MG TAB PO SCH (08:40)
[2016-11-06] MEDS: SODIUM CHLORIDE 0.9% FLUSH 5 ML FLUSH IV FLUSH SCH (08:40)
[2016-11-06] MEDS: DOCUSATE SODIUM 100 MG CAP PO SCH (08:40)
[2016-11-06] MEDS: ASPIRIN EC 81 MG TABEC PO SCH (08:40)
[2016-11-06] MEDS: SENNOSIDES 8.6 MG TAB PO SCH (08:40)
[2016-11-06] MEDS: BACLOFEN 20 MG TAB PO SCH ×2 (08:40→13:14)
[2016-11-06] MEDS ORDERED: LEVOFLOXACIN 500 MG TAB PO SCH (09:00)
[2016-11-06 12:00] VITALS: BP 163/91; PULSE 82; RESP 18; TEMP 98.1; O2SAT 99
[2016-11-06] MEDS ORDERED: POTASSIUM CHLORIDE 20 MEQ CONTROLLED RELEASE TAB PO ONE (13:15)
--- NOTE | 2016-11-06 13:34 | HHI.PR ---
Subjective Remarks Follow up chest pain, dyspnea. She reports no further episodes of dyspnea. No chest pain currently. Feels much better. Objective Vitals Vital Signs Date Time Temp Pulse Resp B/P Pulse Ox O2 Delivery O2 Flow Rate FiO2 11/06/16 12:00 98.1 82 18 163/91 99 11/06/16 08:00 98.6 81 20 160/93 95 11/06/16 04:00 98.0 78 20 151/69 100 11/06/16 01:20 98.5 85 18 142/92 98 11/05/16 23:10 73 11/05/16 20:00 98.1 78 24 146/89 96 11/05/16 16:00 98.1 72 18 150/97 96 I/O 11/05/16 11/05/16 11/05/16 11/06/16 11/06/16 11/06/16 07:00 15:00 23:00 07:00 15:00 23:00 Output Total 400 ml 1420 ml Balance -400 ml -1420 ml Output Urine Total 400 ml 1420 ml # Voids 3 # Bowel Movements 0 Result Diagram: 11/06/16 0558 11/06/16 0558 Imaging Last Impressions Chest X-Ray 11/02/16 0000 Signed Impressions: Service Date/Time: Wednesday, November 02, 2016 09:10 - CONCLUSION: Abnormal chest as described above. Isak Thomason MD FACR Brain MRI 10/30/16 0000 Signed Impressions: Service Date/Time: Sunday, October 30, 2016 20:03 - CONCLUSION: 1. No acute findings. No recent infarct. Minimal white matter ischemic changes. Jeffry Gibbons MD Head CT 10/29/16 1513 Signed Impressions: Service Date/Time: October 17:52 - CONCLUSION: No acute intracranial abnormality demonstrated. Triston Olsen MD Objective Remarks General: No acute distress. Heart: Regular rate and rhythm. No murmur. Lungs: Clear to auscultation bilaterally. No wheezes, rales, or rhonchi. Breathing is nonlabored. Chest wall: Tenderness along left sternal border. Abdomen: Soft, nontender, nondistended. Extremities: No lower extremity edema. Bilateral lower extremity weakness noted. Psych: Alert and oriented. Procedures 10/30/16 lumbar puncture Urinary Catheter: Yes Assessment to: Continue Norman insert reason: Obstruction/Retention Vascular Central Line Catheter: No A/P Problem List: (1) Tetraparesis ICD Code: G82.50 Status: Chronic (2) Hypertension ICD Code: I10 Status: Chronic (3) Encephalopathy ICD Code: G93.40 Status: Acute (4) Healthcare-associated pneumonia ICD Code: J18.9 Status: Acute (5) Rhabdomyolysis ICD Code: M62.82 Status: Resolved (6) Acute renal failure ICD Code: N17.9 Status: Acute Assessment and Plan 1. Metabolic encephalopathy: Patient initially presented unresponsive. Mental status has improved. Likely multifactorial. Patient had recent pneumonia. Presented with acute renal failure. Continue PT/OT/ST. Appreciate neurology recommendations. 2. PEA arrest: Status post CPR. Appreciate cardiology recommendations. Medical management. Echocardiogram unremarkable. Monitor on telemetry. Continue Coreg, aspirin. 3. Chest pain: Patient not complaining of chest pain today. Troponin elevated, but trending down from admission. Patient does have chronic chest wall tenderness, likely costochondritis. Appreciate cardiology recommendations. 4. Acute renal failure: Improved with IV fluids. Creatinine still elevated, but trending down. 5. Rhabdomyolysis: Resolved. 6. Shock: Patient presented in shock, likely cardiogenic. No active infection was apparent upon admission. Had been treated for sepsis/pneumonia prior to this admission. Discontinue vancomycin/Zosyn. 7. Generalized weakness, tetraparesis: Status post spinal cord injury. Continue PT/OT. 8. DVT prophylaxis: Heparin. 9. Dyspnea: Improved. Duoneb as needed. Not requiring supplemental oxygen. Discharge Planning Discussed with case management. Will discharge to SNF when arrangements are made. Richard Villavicencio MD Nov 06, 2016 13:34
[2016-11-06] MEDS ORDERED: CARV3.125 PO (13:39)
[2016-11-06] MEDS ORDERED: PANT40TA3 PO (13:39)
[2016-11-06] MEDS ORDERED: FENT25T TD (13:39)
[2016-11-06] MEDS ORDERED: SENN8.6T15 PO (13:39)
[2016-11-06] MEDS ORDERED: OXYC-392 PO (13:39)
[2016-11-06] MEDS ORDERED: LEVA500T PO (13:39)
[2016-11-06] MEDS ORDERED: LORA-392 PO (13:39)
--- NOTE | 2016-11-06 13:41 | HHI.DCPOC ---
Discharge Care Plan Diagnosis: (1) Tetraparesis (2) Chronic pain due to trauma (3) Hypertension (4) Encephalopathy (5) Acute renal failure (6) PEA (Pulseless electrical activity) (7) Shock Goals to Promote Your Health * To prevent worsening of your condition and complications * To maintain your health at the optimal level Directions to Meet Your Goals Take your medications as prescribed Follow your dietary instruction Follow activity as directed Keep your appointments as scheduled Take your immunizations and boosters as scheduled If your symptoms worsen call your PCP, if no PCP go to Urgent Care Center or Emergency Room Smoking is Dangerous to Your Health. Avoid second hand smoke Call the 24-hour hour crisis hotline for domestic abuse at Richard Villavicencio MD Nov 06, 2016 13:41
[2016-11-06 16:00] VITALS: BP 144/89; PULSE 79; RESP 18; TEMP 98; O2SAT 98
[2016-11-06 17:51] VITALS: BP 131/60; PULSE 121; RESP 20; TEMP 97.9; O2SAT 93
--- NOTE | 2016-11-07 07:04 | HHI.DS ---
Discharge Summary Admission Date Oct 29, 2016 at 18:21 Discharge Date: Nov 06, 2016 Admitting Diagnosis altered mental status/PEA episode/suspected opiate overdose (1) Tetraparesis ICD Code: G82.50 (2) Hypertension ICD Code: I10 (3) Encephalopathy ICD Code: G93.40 (4) Healthcare-associated pneumonia ICD Code: J18.9 (5) Rhabdomyolysis ICD Code: M62.82 (6) Acute renal failure ICD Code: N17.9 Procedures 10/30/16 lumbar puncture Brief History - From Admission 50-year-old male with history of paraplegia from a fall, seen recently for sepsis, presents to the ER today because [place], was given a small dose of Narcan by EMS without significant improvement, still lethargic. As they were moving him to a bed, patient was again unresponsive, pulseless could not be found, and CPR was initiated on him. After 1 minute of CPR and bag valve mask initiation, a reevaluation of rhythm and pulse check was done when I arrived in the room and it shows an organized rhythm, patient had pulses, and regain consciousness. Blood pressure was 75/ 47. IV fluids were initiated and workup initiated. Critical care medicine was consulted for treatment and management. Modifying Factors: None Associated Signs & Symptoms: Unresponsive episode, hypotension, PEA Risk Factors: Paraplegic, recent sepsis History PFSH Past Medical History Anxiety: No Depression: No Cancer: No Cardiovascular Problems: No Diminished Hearing: No Endocrine: No Gastrointestinal Disorders: No Genitourinary: No Immune Disorder: No Implanted Vascular Access Dvce: No Musculoskeletal: No Neurologic: Yes (c4 c5 fracture, incomplete quad) Psychiatric: No Reproductive: No Respiratory: No Immunizations Current: No Past Surgical History Abdominal Surgery: Yes (COLOSTOMY TO LLQ ) AICD: No Pacemaker: No Other Surgery: Yes Social History Alcohol Use: No Tobacco Use: Yes Substance Use: No Allergies-Medications Allergies-Medications (Allergen,Severity, Reaction): Coded Allergies: Morphine (Verified Allergy, Unknown, Confusion, 10/20/16) PT DENIES ALLERGY TO THIS MEDICATION 02-04-16 Uncoded Allergies: morphi (Adverse Reaction, Unknown, Confusion, 06/21/14) Reported Meds & Prescriptions Reported Meds & Active Scripts Active Lasix (Furosemide) 40 Mg Tab 40 Mg PO DAILY Potassium Chloride Microencaps 20 Meq Tab 20 Meq PO Q12HR Lyrica (Pregabalin) 50 Mg Cap 50 Mg PO TID Neurontin (Gabapentin) 300 Mg Cap 300 Mg PO TID Levaquin (Levofloxacin) 750 Mg Tab 750 Mg PO DAILY Duragesic Patch 72 HR (Fentanyl) 25 Mcg/Hr Patch 1 Patch TD Q3D Reported Baclofen 20 Mg Tab 20 Mg PO QID ROS Review of Systems ROS Limitations: Altered Mental Status, Unresponsive CBC/BMP: 11/06/16 0558 11/06/16 0558 Significant Findings Laboratory Tests Test 11/04/16 11/04/16 11/04/16 11/04/16 07:11 13:10 19:43 23:50 Troponin I 0.08 NG/ML 0.07 NG/ML 0.07 NG/ML (0.02-0.05) (0.02-0.05) (0.02-0.05) Vancomycin Level Trough 20.6 MCG/ML (5.0-10.0) Test 11/05/16 11/06/16 06:09 05:58 Creatinine 1.40 MG/DL (0.60-1.30) Estimat Glomerular Filtration 65 ML/MIN (>89) 74 ML/MIN (>89) Rate Red Blood Count 3.64 MIL/MM3 (4.50-5.90) Hemoglobin 10.5 GM/DL (13.0-17.0) Hematocrit 31.1 % (39.0-51.0) Monocytes (%) (Auto) 12.6 % (0.0-8.0) Monocytes # (Auto) 1.0 TH/MM3 (0-0.9) Potassium Level 3.2 MEQ/L (3.5-5.1) Calcium Level 8.2 MG/DL (8.5-10.1) Imaging Last Impressions Chest X-Ray 11/02/16 0000 Signed Impressions: Service Date/Time: Wednesday, November 02, 2016 09:10 - CONCLUSION: Abnormal chest as described above. Isak Thomason MD FACR Brain MRI 10/30/16 0000 Signed Impressions: Service Date/Time: Sunday, October 30, 2016 20:03 - CONCLUSION: 1. No acute findings. No recent infarct. Minimal white matter ischemic changes. Jeffry Gibbons MD Head CT 10/29/16 1513 Signed Impressions: Service Date/Time: October 17:52 - CONCLUSION: No acute intracranial abnormality demonstrated. Triston Olsen MD PE at Discharge General: No acute distress. Heart: Regular rate and rhythm. No murmur. Lungs: Clear to auscultation bilaterally. No wheezes, rales, or rhonchi. Breathing is nonlabored. Chest wall: Tenderness along left sternal border. Abdomen: Soft, nontender, nondistended. Extremities: No lower extremity edema. Bilateral lower extremity weakness noted. Psych: Alert and oriented. Hospital Course The patient was admitted to the critical care service for further management of PEA cardiac arrest. The patient was initially felt to have had septic shock, however no source of infection wasn't apparent. Lumbar puncture was done. Cardiology and neurology were consulted. The patient continued to have intermittent chest pain. Cardiac enzymes were initially elevated. His mental status improved. Encephalopathy was felt to be secondary to recent infection, acute renal failure, and cardiac arrest episode. He improved clinically throughout the hospitalization. He was felt to be stable for discharge. Arrangements were made for discharge to [facility] facility. Pt Condition on Discharge: Stable Discharge Disposition: Discharge to SNF Discharge Time: > 30 minutes Discharge Instructions DIET: Follow Instructions for: As Tolerated, No Restrictions Activities you can perform: See Additionl Instruction Other Activity Instructions: With assistance Follow up Referrals: Cardiology - 1 Week with Ever White MD PCP Follow-up - 2 Weeks New Medications: Pantoprazole (Pantoprazole) 40 Mg Tab 40 MG PO DAILY Reflux #30 Ref 0 TAB Carvedilol (Coreg) 3.125 Mg Tab 3.125 MG PO Q12HR heart #60 Ref 0 TAB Levofloxacin (Levaquin) 500 Mg Tab 500 MG PO DAILY Infection #7 Ref 0 TAB Lorazepam (Ativan) 0.5 Mg Tab 0.5 MG PO Q8H PRN anxiety #10 Ref 0 TAB Oxycodone (Oxycodone) 5 Mg Tab 5 MG PO Q4H PRN pain 3-10 #10 Ref 0 TAB Sennosides (Senna Lax) 8.6 Mg Tab 17.2 MG PO DAILY Constipation #30 TAB Continued Medications: Baclofen (Baclofen) 20 Mg Tab 20 MG PO QID Muscle Spasm #120 Ref 0 TAB Fentanyl Patch 72 HR (Duragesic Patch 72 HR) 25 Mcg/Hr Patch 1 PATCH TD Q3D Pain Management #1 Ref 0 PATCH (This prescription has been renewed) Isosorbide Mononitrate ER (Isosorbide Mononitrate ER) 60 Mg Tab 60 MG PO HS Prevent Chest Pain #30 Ref 0 TAB NS Discontinued Medications: Furosemide (Lasix) 40 Mg Tab 40 MG PO DAILY edema #30 Ref 0 TAB Gabapentin (Neurontin) 300 Mg Cap 300 MG PO TID neuropathy #90 Ref 0 CAP Levofloxacin (Levaquin) 750 Mg Tab 750 MG PO DAILY Infection #7 Ref 0 TAB Potassium Chloride ER (Potassium Chloride ER) 20 Meq Tab 20 MEQ PO Q12HR Electrolyte Replacement #60 Ref 0 TAB NS Potassium Chloride Microencaps (Potassium Chloride Microencaps) 20 Meq Tab 20 MEQ PO Q12HR Electrolyte Replacement #60 TAB Pregabalin (Lyrica) 50 Mg Cap 50 MG PO TID neuropathy #90 Ref 0 CAP Tizanidine HCl (Bulk) (Tizanidine HCl) 1 Pow Pow 4 MG PO BID TAB Richard Villavicencio MD Nov 07, 2016 07:04
[2016-11-08] MEDS ORDERED: PHARMACY ORDERED LAB XX ONE (15:45)
[2016-11-25] MEDS ORDERED: LYRI50CA PO (14:09)
[2016-11-25] MEDS ORDERED: FENT100D T-DERMAL (14:09)
[2016-12-02] MEDS ORDERED: BACL20TA PO (11:28)
[2016-12-07] MEDS ORDERED: BACL20TA PO (12:40)
[2016-12-23] MEDS ORDERED: FENT100D T-DERMAL (14:51)
[2016-12-23] MEDS ORDERED: LYRI100C PO (14:52)
[2016-12-23] MEDS ORDERED: HYDR-3535 PO (14:52)
[2016-12-29] MEDS ORDERED: LYRI200C PO (15:32)
[2017-01-20] MEDS ORDERED: ZANA4CAP PO (12:36)
[2017-01-27] MEDS ORDERED: HYDR-3535 PO (12:55)
[2017-01-27] MEDS ORDERED: FENT100D T-DERMAL (12:55)
[2017-02-24] MEDS ORDERED: FENT100D T-DERMAL (14:30)
[2017-02-24] MEDS ORDERED: HYDR-3535 PO (14:30)
[2017-02-24] MEDS ORDERED: AMIT50TA3 PO (14:34)
[2017-03-31] MEDS ORDERED: HYDR-3535 PO (13:32)
[2017-03-31] MEDS ORDERED: FENT100D T-DERMAL (13:32)
== END 2016-11-06 18:37 | DRG 70 ==
LOC: NEPE 14:56 → NEDA 18:21 → NEDH 23:38 → HIME 10-30 02:55 → N05B 10-31 21:04
PROVIDERS: ADMIT Family Medicine; ATTEND Family Medicine
PROC: 5A12012 Performance of Cardiac Output, Single, Manual (ICD-10-PCS; principal; 2016-10-29)
PROC: 009U3ZX Drainage of Spinal Canal, Percutaneous Approach, Diagnostic (ICD-10-PCS; 2016-10-30)
DX: G93.49 Other encephalopathy (principal); G82.50 Quadriplegia, unspecified; I46.9 Cardiac arrest, cause unspecified; R57.0 Cardiogenic shock; J18.9 Pneumonia, unspecified organism; N17.9 Acute kidney failure, unspecified; M62.82 Rhabdomyolysis; Z93.3 Colostomy status; Z72.0 Tobacco use; I25.10 Atherosclerotic heart disease of native coronary artery without angina pectoris; I12.9 Hypertensive chronic kidney disease with stage 1 through stage 4 chronic kidney disease, or unspecified chronic kidney disease; N18.9 Chronic kidney disease, unspecified; M94.0 Chondrocostal junction syndrome [Tietze]; G89.29 Other chronic pain; M79.606 Pain in leg, unspecified; Z79.899 Other long term (current) drug therapy
CPT/HCPCS: 36600; 51702; 62270; 70450; 70551; 71010; 76937; 80048; 80053; 80061; 80076; 80202; 80307; 80320; 82140; 82272; 82550; 82552; 82565; 82607; 82728; 82746; 82805; 82945; 82948; 83036; 83540; 83550; 83605; 83615; 83735; 84100; 84155; 84157; 84443; 84484; 85025; 85027; 85610; 85730; 86403; 86592; 87015; 87040; 87070; 87086; 87102; 87116; 87205; 87206; 87498; 87529; 87641; 89051; 92950; 93005; 93306; 94150; 94640; 94664; 94667; 94668; 95819; 96360; 96374; C9113; J0131; J0610; J0692; J1644; J2310; J2405; J2543; J3370; J3480; J7030; J7040; J7042; J7060; J7120

== ENCOUNTER → 2016-12-15 | Outpatient (CLI) | payer MEDICARE, MEDICAID ==
[~2016-12-15] MED LIST changes: +AMIT50TA3 PO; +CARV3.125 PO; +FENT100D T-DERMAL; -FENT25T TD; -FURO1TAB60 PO; +HYDR-3535 PO; +ISOS60TA PO; +LEVA500T PO; -LEVA750T PO; +LORA-392 PO; +LYRI100C PO; +LYRI200C PO; -NEUR300C PO; +OXYC-392 PO; +PANT40TA3 PO; -POTA20TA5 PO; +SENN8.6T15 PO; +ZANA4CAP PO
[2016-12-15 13:14] LABS: ALKALINE PHOSPHATASE 75 U/L (45-117); TOTAL BILIRUBIN ADULT 0.3 MG/DL (0.2-1.0)
[2016-12-15 13:15] LABS: ALT (GPT) 15 U/L (12-78); ANION GAP 6 MEQ/L (5-15); AST (GOT) 21 U/L (15-37); BICARBONATE 26.8 MEQ/L (21.0-32.0); CHLORIDE 105 MEQ/L (98-107); GLOMERULAR FILTRATION RATE 109 ML/MIN (>89); GLUCOSE,FASTING 86 MG/DL (74-99); POTASSIUM 3.3 MEQ/L (3.5-5.1); SODIUM (NA) 138 MEQ/L (136-145)
[2016-12-15 13:21] LABS: BLOOD UREA NITROGEN 7 MG/DL (7-18)
== END ==
LOC: CLAB 12:20
PROVIDERS: ATTEND Family Medicine
DX: N28.9 Disorder of kidney and ureter, unspecified (principal); Z12.5 Encounter for screening for malignant neoplasm of prostate
CPT/HCPCS: 36415; 80053; G0103

== ENCOUNTER → 2017-03-05 | Outpatient (CLI) | payer MEDICARE, MEDICAID ==
[~2017-03-05] MED LIST changes: +GABA600T PO; -LYRI50CA PO; -OXYC-392 PO
[2017-03-05 14:55] LABS: MEAN CORPUSCULAR HEMOGLOBIN 28.6 PG (27.0-34.0); MEAN CORPUSCULAR HGB CONC 34.1 % (32.0-36.0); PLATELET COUNT 131 TH/MM3 (150-450); RED BLOOD COUNT 4.76 MIL/MM3 (4.50-5.90); RED CELL DISTRIBUTION WIDTH 14.5 % (11.6-17.2); REVIEW FLAG FINAL; WHITE BLOOD COUNT 4.7 TH/MM3 (4.0-11.0)
[2017-03-05 15:30] LABS: BICARBONATE 27.2 MEQ/L (21.0-32.0); POTASSIUM 4.7 MEQ/L (3.5-5.1)
== END ==
LOC: CLAB 14:33
PROVIDERS: ATTEND Internal Medicine Cardiovascular Disease
DX: I50.1 Left ventricular failure, unspecified (principal); N39.0 Urinary tract infection, site not specified
CPT/HCPCS: 36415; 80048; 85027

== ENCOUNTER → 2017-03-08 | Outpatient (CLI) | payer MEDICARE, MEDICAID ==
[2017-03-08 15:55] LABS: BACTERIA, URINE RARE /hpf; BLOOD, URINE NEG (NEG); COMMENT (UR) CULT NOT INDICATED; CULTURE IF INDICATED CULT NOT INDICATED; GLUCOSE,URINE NEG (NEG); HYALINE CAST, URINE 9 /lpf (RARE); KETONE, URINE NEG (NEG); MUCUS URINE FEW /lpf (OCC); NITRITE,URINE NEG (NEG); URINE COLOR YELLOW (YELLW/STRAW)
== END ==
LOC: CLAB 15:10
PROVIDERS: ATTEND Physical Medicine & Rehabilitation
DX: N39.0 Urinary tract infection, site not specified (principal)
CPT/HCPCS: 81001

== ENCOUNTER → 2017-09-20 | Outpatient (CLI) | payer MEDICARE, MEDICAID ==
[~2017-09-20] MED LIST changes: -AMIT50TA3 PO; -CARV3.125 PO; -LEVA500T PO; -LORA-392 PO; -LYRI100C PO; -SENN8.6T15 PO; +TIZA4TAB PO; -ZANA4CAP PO
[2017-09-20 11:51] LABS: HEMATOCRIT 44.2 % (39.0-51.0); MEAN CORPUSCULAR HEMOGLOBIN 29.9 PG (27.0-34.0); MEAN CORPUSCULAR HGB CONC 33.3 % (32.0-36.0); PLATELET COUNT 212 TH/MM3 (150-450); RED BLOOD COUNT 4.91 MIL/MM3 (4.50-5.90); RED CELL DISTRIBUTION WIDTH 15.1 % (11.6-17.2)
[2017-09-20 11:52] LABS: REVIEW FLAG FINAL
[2017-09-20 12:11] LABS: BICARBONATE 29.5 MEQ/L (21.0-32.0); POTASSIUM 3.7 MEQ/L (3.5-5.1)
== END ==
LOC: CLAB 11:22
PROVIDERS: ATTEND Internal Medicine Cardiovascular Disease
DX: I50.9 Heart failure, unspecified (principal)
CPT/HCPCS: 36415; 80048; 85027

== ENCOUNTER → 2017-11-26 | Outpatient (CLI) | payer MEDICARE, MEDICAID ==
[~2017-11-26] MED LIST changes: -HYDR-3535 PO; +HYDR-3583 PO
[2017-11-26 14:30] LABS: HEMATOCRIT 43.9 % (39.0-51.0); HEMOGLOBIN 15.5 GM/DL (13.0-17.0); MEAN CELL VOLUME 89.5 FL (80.0-100.0); MEAN CORPUSCULAR HEMOGLOBIN 31.7 PG (27.0-34.0); MEAN CORPUSCULAR HGB CONC 35.4 % (32.0-36.0); MEAN PLATELET VOLUME 9.1 FL (7.0-11.0); PLATELET COUNT 135 TH/MM3 (150-450); RED CELL DISTRIBUTION WIDTH 15.8 % (11.6-17.2); WHITE BLOOD COUNT 4.2 TH/MM3 (4.0-11.0)
[2017-11-26 14:36] LABS: BACTERIA, URINE MANY /hpf; BILIRUBIN, URINE NEG (NEG); BLOOD, URINE TRACE (NEG); GLUCOSE,URINE NEG (NEG); KETONE, URINE NEG (NEG); MUCUS URINE FEW /lpf (OCC); NITRITE,URINE NEG (NEG); SPERM, URINE MOD; URINE COLOR YELLOW (YELLW/STRAW); URINE LEUKOCYTE ESTERASE LARGE (NEG)
[2017-11-26 14:55] LABS: CHOLESTEROL 185 MG/DL (120-200)
[2017-11-26 15:20] LABS: ALKALINE PHOSPHATASE 78 U/L (45-117); ALT (GPT) 10 U/L (12-78); CHOLESTEROL/ HDL RATIO 3.54 RATIO; FOLATE 4.6 NG/ML (3.1-17.5); HDL CHOLESTEROL 52.2 MG/DL (40.0-60.0); LDL CHOLESTEROL 109 MG/DL (0-99); TOTAL BILIRUBIN ADULT 0.3 MG/DL (0.2-1.0); TOTAL PROTEIN 7.2 GM/DL (6.4-8.2); TRIGLYCERIDES 118 MG/DL (42-150)
[2017-11-26 15:22] LABS: ALBUMIN 3.5 GM/DL (3.4-5.0); AST (GOT) 14 U/L (15-37); BICARBONATE 32.4 MEQ/L (21.0-32.0); BLOOD UREA NITROGEN 8 MG/DL (7-18); CALCIUM 8.6 MG/DL (8.5-10.1); CHLORIDE 103 MEQ/L (98-107); CREATININE 1.05 MG/DL (0.60-1.30); GLOMERULAR FILTRATION RATE 91 ML/MIN (>89); GLUCOSE,FASTING 75 MG/DL (74-99); SODIUM (NA) 139 MEQ/L (136-145)
== END ==
LOC: CLAB 14:09
PROVIDERS: ATTEND Internal Medicine Cardiovascular Disease
DX: I50.1 Left ventricular failure, unspecified (principal); R53.83 Other fatigue; I25.118 Atherosclerotic heart disease of native coronary artery with other forms of angina pectoris; R30.0 Dysuria
CPT/HCPCS: 36415; 80053; 80061; 81001; 82607; 82746; 84443; 85027

== ENCOUNTER → 2017-12-23 | Outpatient (CLI) | payer MEDICARE, MEDICAID ==
[2017-12-23 12:49] LABS: HEMATOCRIT 44.2 % (39.0-51.0); HEMOGLOBIN 15.3 GM/DL (13.0-17.0); MEAN CELL VOLUME 90.3 FL (80.0-100.0); MEAN CORPUSCULAR HEMOGLOBIN 31.3 PG (27.0-34.0); MEAN CORPUSCULAR HGB CONC 34.6 % (32.0-36.0); MEAN PLATELET VOLUME 9.7 FL (7.0-11.0); PLATELET COUNT 120 TH/MM3 (150-450); RED BLOOD COUNT 4.89 MIL/MM3 (4.50-5.90); RED CELL DISTRIBUTION WIDTH 15.6 % (11.6-17.2); WHITE BLOOD COUNT 6.5 TH/MM3 (4.0-11.0)
[2017-12-23 12:54] LABS: BICARBONATE 29.3 MEQ/L (21.0-32.0); CALCIUM 8.6 MG/DL (8.5-10.1); CREATININE 0.92 MG/DL (0.60-1.30)
== END ==
LOC: CLAB 12:10
PROVIDERS: ATTEND Internal Medicine Cardiovascular Disease
DX: I50.1 Left ventricular failure, unspecified (principal)
CPT/HCPCS: 36415; 80048; 85027

== ENCOUNTER 2018-01-19 06:52 | Day surgery (SDC) | payer MEDICARE, MEDICAID ==
[~2018-01-19] VITALS: Ht 177.8 cm; Wt 86.0 kg
[2018-01-19] MEDS ORDERED: IOHEXOL 350 MG/ML 100 ML BTL (for Cath Lab) OTHER ONE (06:53)
[2018-01-19] MEDS ORDERED: IOHEXOL 350 MG/ML 50 ML BTL (for Cath Lab) OTHER ONE (06:53)
[2018-01-19] MEDS ORDERED: NS 1000P @30 MLS/HR (KVO) IV SCH (07:45)
[2018-01-19] MEDS ORDERED: FURO40TA PO (07:46)
[2018-01-19] MEDS ORDERED: PREG25 PO (07:46)
[2018-01-19 07:52] LABS: AUTOMATED NEUTROPHIL # 2.3 TH/MM3 (1.8-7.7); BASOPHIL % 0.7 % (0.0-2.0); EOSINOPHIL # 0.1 TH/MM3 (0-0.4); EOSINOPHIL % 2.7 % (0.0-4.0); HEMATOCRIT 46.6 % (39.0-51.0); LYMPH % 45.6 % (9.0-44.0); LYMPHOCYTE # 2.5 TH/MM3 (1.0-4.8); MEAN CELL VOLUME 91.2 FL (80.0-100.0); MEAN CORPUSCULAR HEMOGLOBIN 31.3 PG (27.0-34.0); MEAN CORPUSCULAR HGB CONC 34.3 % (32.0-36.0); MEAN PLATELET VOLUME 9.2 FL (7.0-11.0); MONOCYTE # 0.5 TH/MM3 (0-0.9); PLATELET COUNT 119 TH/MM3 (150-450); RED CELL DISTRIBUTION WIDTH 15.4 % (11.6-17.2); WHITE BLOOD COUNT 5.4 TH/MM3 (4.0-11.0)
[2018-01-19 07:59] LABS: PROTHROMBIN TIME - PATIENT 10.4 SEC (9.8-11.6)
[2018-01-19 08:08] LABS: BICARBONATE 29.2 MEQ/L (21.0-32.0); CALCIUM 8.6 MG/DL (8.5-10.1); CREATININE 1.14 MG/DL (0.60-1.30)
[2018-01-19] MEDS ORDERED: HEPARIN-NS/PF FLUSH BAG 2,000 ML IV FLUSH ONE (08:41)
[2018-01-19] MEDS ORDERED: MIDAZOLAM HCL 2 MG/2 ML VIAL ONE (08:45)
--- NOTE | 2018-01-19 09:28 | CATHPROC ---
Logentries HIS Report Study Information Study Number Admission Scheduled Start Study Start [id number] Jan 19 2018 6:52AM 01/19/2018 Jan 19 2018 8:40AM [facility] Cardiac Catheterization Admit Source Facility Department Other [facility] Physician and Clinical Staff Initial Ever Watters Bryologist Erica Dotson,DICK Bryologist Neal Carrillo RN Other Gabrielle Gilmore ,RT(R) Recorder Candice Ball,BUSINESS SERVICES ASSISTANT TECH2 Scrub Jessi Chaudhary,RT(R) Procedures Performed Procedure Location (Site) Vessel Name Coronary Angiograms LCA Left Coronary Coronary Angiograms RCA Right Coronary Equipment Time [employer] Description Size Mfg Part Number Used/Scraped TRANSDUCER, TRUWAVE [id number] 08:42 PIZARRO GARCIA * Used W/STOCKCOCK *[id number] 09:17 [employer] MEDICAL VASCADE, FR5 CLOSURE SYSTEM FR 5 Used *[id number] *[id number] *[id number] 08:42 MEDLINE IND[employer]ES PACK, CCL CUSTOM * Used *[id number] 08:42 Clinked PACER PEN, SKIN DUAL W/ RULER * Used *[id number] 08:46 MEDTRONIC JL 4.0 DXTERITY CATHETER FR 5 Used *[id number] PIG STRAIGHT DXTERITY 08:47 MEDTRONIC FR 5 [id number] Used CATHETER [id number] 08:42 [employer] MEDICAL WIRE, 3MMJ .035 180CM 180CM Used *[id number] 08:42 NAMIC MANIFOLD, 4 PORT * Used *[id number] 08:42 NYCOMED OMNIPAQUE, 350 MG, 150ML 150ML [id number] Used [id number] 08:42 [employer] MEDICAL BLANKET,WARM AIR CCL * Used *[id number] 08:42 TERUMO MEDICAL SHEATH, FR5 TERUMO (10CM) FR 5 Used *[id number] Equipment Model, Serial, Lot Number and Expiration Data Description Model Number Serial Number Lot Number Expiration Date JL 4.0 DXTERITY CATHETER [id number] 11-03-2020 History: Current Medications Medication Dosage/Unit Route Frequency Last Date/Time Taken LASIX Neurontin Imdur LYRICA History: Allergies Allergy Reaction morphine Confusion morphi Confusion No Known Allergies History: Risk Factors Family History of Hypertension Dyslipidemia Previous NM Previous Heart Failure Premature CAD No No No Yes Yes Prior Valve Prior PCI Prior CABG Surgery No No No Cerebrovascular Peripheral Artery Chronic Lung On Dialysis Diabetes Disease Disease Disease No Yes No No No History: Symptoms/Diagnosis Selection Items Chest pain SOB History: Stress Tests Stress or Imaging Studies Performed No History: Other Current Smoker Method Packs a Day Yes Cigarettes 1 Labs Hgb (g/dl) Hct (%) WBC (l/cumm) Platelets (thousands) 11.60-17.00 35.00-51.00 4.00-11.00 150.00-450.00 16.0 46.6 5.4 119 Glucose (mg/dl) BUN (mg/dl) Creatinine (mg/dl) BUN:Creatinine (1:x) 74.00-106.00 7.00-18.00 0.50-1.30 10.00-20.00 80 15 1.1 13.6 Na (meq/l) K (meq/l) 136.00-145.00 3.50-5.10 139 3.6 CPK-MB (ng/ML) 0.50-3.60 Not Drawn Medication Medication Total Dose (Bolus/Oral) Medication Total Dosage/Unit 1% XYLOCAINE 20 mL BENADRYL 50 mg VERSED 1 mg Medications (Bolus/Oral) Medication Time Given Dosage/Unit Administered By Reason BENADRYL 01/19/2018 8:59:54 AM 50 mg Gerardo, Neal 50 mg BENADRYL given in lab by Neal Carrillo RN in Left Antecubital via Peripheral IV. Ordered by Ever Jones. 1% XYLOCAINE 01/19/2018 9:01:33 AM 20 mL Ever White 20 mL 1% XYLOCAINE given in lab by Ever White in Right Groin via Subcutaneous. Ordered by Ahmad. Cindy VERSED 01/19/2018 9:03:18 AM 1 mg Gerardo, Neal 1 mg VERSED given in lab by Neal Carrillo RN in Left Antecubital via Peripheral IV. Ordered by Ahmad. Diane Medication (Drip) Medication Time Given Dosage/Unit Concentration/Unit Diluent (ml) Solution IV Solutions 01/19/2018 8:40:11 AM 0 mL (IV) 500 NaCl .9 Patient arrived on IV Solutions in Left Antecubital via Peripheral IV. Pump/Drip Flow = 20 ml/hr usin g NaCl .9. Initial Case Assessment Cardiovascular HR Rhythm NIBP Chest Pain 65 sr 101/70 0 Edema Present Mild Circulatory - Right Pulses Dorsalis Pedis 1 Scale (0,1,2,3,4,d) Circulatory - Left Pulses Dorsalis Pedis 1 Scale (0,1,2,3,4,d) Neurological State Oriented to time-place- Alert Moves all extremities person Respiration - General Respiration Rate SpO2 (%) (B/min) 14 100 Final Case Assessment Cardiovascular HR Rhythm NIBP Chest Pain 70 sr 109/64 0 Edema Present Mild Neurological State Oriented to time-place- Alert person Respiration - General Respiration Rate SpO2 (%) (B/min) 11 99 Chronological Log Time Study Chronological Log 8:35:49 Patient arrived via Bed. 8:35:54 Patient Name, D.O.B, / Armband Verified By R.N. 8:39:57 Consent signed by the physician and the patient and verified by the [facility] staff. 8:39:58 Pre-op and post- op instructions given; patient acknowledges understanding of instructions. 8:39:59 Verbal Stimulation=2 Physical Stimulation=1 Airway=2 Respiration=2 TOTAL=7. (0=absent, 1=li mited, 2=present) 8:40:01 Presedation assessment performed by Broth [facility]er RN. 8:40:04 Patient has been NPO for More than 6Hrs. 8:40:05 Skin Breakdown-none per patient 8:40:06 Hollis Prominences Protected 8:40:10 A # 20 IV was noted in the Antecubital (left). Grade = patent 8:40:11 Patient arrived on IV Solutions in Left Antecubital via Peripheral IV. Pump/Drip Flow = 20 m l/hr using NaCl .9. 8:40:12 History and physical on the chart or being dictated. Vitals capture started with the following parameters, Patient=Adult, Interval=5 min, Initial Pre rkzhp=559 mmHg, 8:40:31 Deflation Rate=5 mmHg, Cuff placed on Unknown 8:41:05 HR=66 bpm, FYOA=522/69 mmhg, SpO2=99.0 %, Resp=13 B/min 8:46:02 HR=61 bpm, NIBP=96/65 mmhg, IbR1=235.0 %, Resp=10 B/min 8:48:10 Reference ECG taken 8:48:17 Bilateral groins prepped with 2% chlorhexidine, and draped after a 3 minute waiting time. Assessment: Initial Case, HR=65 BPM, Rhythm=sr, OHUJ=598/70 mmhg, Chest Pain=0, Edema=Mild Right Pulses: Jeremiah Ped=1 8:50:51 Left Pulses: Jeremiah Ped=1 Neurological: State=Alert, Ox3, SALINAS Respiration: Resp=14 B/min, SlB6=626 % 8:50:59 HR=65 bpm, THAD=205/70 mmhg, SkU3=500.0 %, Resp=14 B/min 8:53:01 Pressure channel 1 zeroed. 8:54:20 MD paged 8:54:23 MD responded 8:56:02 HR=64 bpm, NIBP=98/65 mmhg, JzE5=722.0 %, Resp=15 B/min 8:57:43 MD arrived. 8:59:54 50 mg BENADRYL given in lab by Neal Carrillo RN in Left Antecubital via Peripheral IV. Order ed by Ever White. Time Out. Correct patient, correct procedure, correct physician, power injector loaded, or not l oaded with contrast with 9:00:01 surgical team present. Time Out Concurred by MD and individual staff in procedure. 9:01:01 HR=66 bpm, YJWW=050/68 mmhg, YsH5=154.0 %, Resp=13 B/min, Mike=10 9:01:28 Case Start 9:01:33 20 mL 1% XYLOCAINE given in lab by Ever White in Right Groin via Subcutaneous. Ordered b Ever Beverly. 9:03:13 Access site was Right Femoral Artery. 9:03:18 1 mg VERSED given in lab by Neal Carrillo RN in Left Antecubital via Peripheral IV. Ordered by Ever White. 9:03:20 A SHEATH, FR5 TERUMO (10CM) FR 5 was advanced into the Fem Art (right) using the Percutaneou s technique. A JL 4.0 DXTERITY CATHETER FR 5 was advanced over a wire. OMNIPAQUE, 350 MG, 150ML 150ML was use d for 9:04:00 injections. 9:05:06 The LCA was injected and visualized at various angles. OMNIPAQUE, 350 MG, 150ML 150ML used. Recorded Pressure: Ao, HR=64, Condition=Condition 1 9:05:14 (Aorta) Ao 109/71/87 9:06:00 HR=65 bpm, ZHDH=082/77 mmhg, SpO2=98.0 %, Resp=12 B/min After removing the current catheter a JR 4.0 INFINITI CATHETER FR 5 was advanced over a WIRE, 3M MJ .035 180CM 9:07:17 180CM. After removing the current catheter a 3DRC INFINITI CATHETER FR 5 was advanced over a WIRE, 3MMJ .035 180CM 9:09:58 180CM. Unable to cannulate RCA 9:11:04 HR=65 bpm, XMZB=640/75 mmhg, SpO2=98.0 %, Resp=8 B/min 9:13:11 Catheter was removed A JR 4.0 INFINITI CATHETER FR 5 was advanced over a wire. OMNIPAQUE, 350 MG, 150ML 150ML was u sed for 9:13:21 injections. 9:14:31 The RCA was injected and visualized at various angles. OMNIPAQUE, 350 MG, 150ML 150ML use d. 9:16:07 HR=70 bpm, FPZY=227/64 mmhg, SpO2=98.0 %, Resp=9 B/min 9:16:24 Catheter was removed 9:16:39 An injection in the Fem Art (right) was made through the SHEATH, FR5 TERUMO (10CM) FR 5. 9:17:12 Access site prepped with betadine for closure device. 9:17:44 VASCADE, FR5 CLOSURE SYSTEM FR 5 placement in the Fem Art (right) Manual pressure held for 5 min 9:20:15 Bedside Report will be given. Assessment: Final Case, HR=70 BPM, Rhythm=sr, MABO=309/64 mmhg, Chest Pain=0, Edema=Mild 9:20:16 Neurological: State=Alert, Ox3 Respiration: Resp=11 B/min, SpO2=99 % 9:21:04 HR=69 bpm, KGPS=523/79 mmhg, SpO2=99.0 %, Resp=11 B/min 9:23:11 Sterile dressing applied to site 9:23:12 No case complications noted. 9:23:13 Cine recording checked. 9:25:59 Vitals capture stopped. 9:30:31 Patient moved to bed 9:31:41 Patient transported to DOCU End Study - Contrast Media Used In Study Contrast Total Opened (mL) Total Used (mL) Total Wasted (mL) Omnipaque 110 110 0 End Study - Maximum Contrast Load Max Contrast Load (mL) 854.5 End Study - Radiation Exposure Fluoro Time (minutes) 4.4 End Study - Sheaths Sheaths Pulled By Sheath Hold Time (min) Ever White 5 End Study - Patient Disposition Complications Transferred To Interventional Outcome No Telemetry Bed No attempt made
[2018-01-19] MEDS ORDERED: ONDANSETRON HCL 4 MG/2 ML VIAL IV PUSH PRN (09:30)
[2018-01-19] MEDS ORDERED: SODIUM CHLORIDE 0.9% FLUSH 10 ML FLUSH IV FLUSH PRN (09:30)
[2018-01-19] MEDS ORDERED: SODIUM CHLOR 0.9% 250 ML INJ 250 ML IV PRN ×2 (09:30)
[2018-01-19] MEDS ORDERED: ATROPINE SULFATE 1 MG/ML VIAL IV PUSH PRN (09:30)
[2018-01-19] MEDS ORDERED: MISC INFORMATION XX ONE ×2 (09:30)
--- NOTE | 2018-01-19 10:10 | MA ---
cc: Ever White MD DATE: 01/19/2018 PROCEDURE: Left heart catheterization. INDICATIONS: This is a 52-year-old male who was recently diagnosed with severe mitral regurgitation. His left heart catheterization was performed to rule out obstructive coronary artery disease in preparation for mitral valve surgery. PROCEDURAL NOTE: After all risks and benefits were explained, and informed consent was obtained, the patient was brought to the catheterization lab in a fasting state. The right groin was sterilized and prepped in the usual manner. 1% Xylocaine was used to anesthetize the right groin triangle. According to the modified Seldinger approach, a 5 [place] sheath was placed in the right femoral artery without any difficulty. A left heart catheterization was then carried out using size 4 left and right Lazarus catheters. A pigtail catheter was used to access the left ventricle to perform left ventriculography. After multiple fluoroscopic views were obtained, all catheters were pulled. There was no apparent complication. FINDINGS: CORONARY ANATOMY: LEFT MAIN: The left main is a moderate size vessel which originates from the left coronary cusp and gives rise to left anterior descending artery and left circumflex artery. The left main is free of atherosclerosis. LEFT ANTERIOR DESCENDING: The left anterior descending artery is a moderate size vessel which courses into the apex and wraps around it. There is 60% stenosis involving proximal segment and midline distal segment are free of atherosclerosis. The first diagonal artery has an ostial lesion constituting 90% of the lumen. The second diagonal artery is free of atherosclerosis. LEFT CIRCUMFLEX: The left circumflex is a moderate size vessel which gives off first and second obtuse marginal artery. The main left circumflex trunk is free of atherosclerosis. The first obtuse marginal artery is free of atherosclerosis. The second diagonal artery has 90% diffuse disease throughout. RIGHT CORONARY ARTERY: The RCA is a large size vessel which originates from the right coronary cusp. It is dominant and tapers off to a small posterior descending artery. There is 90% stenosis involving the proximal segment. The posterior descending artery is free of atherosclerosis. 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 In my opinion the patient would need 1 saphenous vein graft to the RCA and possibly CARLSON to the first diagonal artery. Ever White MD /TL , 09:31 AM , 10:09 AM
[2018-01-19] MEDS ORDERED: SODIUM CHLORIDE 0.9% FLUSH 10 ML FLUSH IV FLUSH SCH ×2 (21:00)
--- NOTE | 2018-01-19 22:08 | EKG ---
Date Performed: 01/19/2018 Time Performed: 07:49:46 PTAGE: 52 years EKG: Sinus rhythm . Inferior T wave changes are nonspecific Borderline ECG PREVIOUS TRACING : 11/04/2016 19.15 Since the previous tracing, no significant change noted DOCTOR: Imani Thompson Interpretating Date/Time 01/19/2018 22:08:01
== END 2018-01-19 13:35 | disposition home or self-care (01) ==
LOC: HCAT 06:52 → HDIC 06:53 → HCAT 13:35
PROVIDERS: ATTEND Internal Medicine Cardiovascular Disease
DX: I34.0 Nonrheumatic mitral (valve) insufficiency (principal)
CPT/HCPCS: 80048; 85025; 85610; 85730; 93005; 93454; 99152; C1760; C1769; C1893; G0269; J1644; J2250; J3010; Q9967